=== PATIENT | female | born 1955 | race Caucasian/White ===

== ENCOUNTER 2017-07-10 14:38 | Inpatient (IN) ==
[2017-07-10] MEDS ORDERED: LEVOFLOXACIN INJ 500 MG in PREMIX 1 EACH IV STA (14:51)
[2017-07-10] MEDS ORDERED: methylPREDNISolone SOD SUC 125 MG/2 ML VIAL IV STA (14:51)
[2017-07-10] MEDS ORDERED: methylPREDNISolone SOD SUC 125 MG/2 ML VIAL ONE (14:59)
[2017-07-10] MEDS: ALBUTEROL 2.5 MG/3 ML NEB RESP TX SCH ×2 (15:15→15:16)
[2017-07-10 15:43] LABS: ABG HCO3 32.8 MMOL/L (20-26); ABG PCO2 45.8 MM HG (35-48); ABG PH 7.473 (7.35-7.45); ABG TCO2 34.2 MMOL/L (23-27)
[2017-07-10 15:46] LABS: ABG PO2 40.3 MM HG (80-95)
[2017-07-10 15:49] LABS: Basophils % 0.2 % (0.0-0.8); Immature Granulocytes % 0.5 %; Immature Granulocytes Absolute 0.07 #; Lymphocytes # 1.6 10*3/uL (1.4-4.0); Lymphocytes % 12.1 % (21.3-54.2); Mean Corpuscular HGB Conc 35.7 GM/DL (32-36); Mean Corpuscular Hemoglobin 31 PG (27-34); Mean Corpuscular Volume 85.7 FL (87-102); Mean Platelet Volume 9.6 FL (9.6-12.0); Monocytes # 1.6 10*3/uL (0.11-0.8); Monocytes % 11.6 % (1.7-12.7); Neutrophils # 10.1 10*3/uL (1.4-7.4); Neutrophils % 75.6 % (38.7-73.9); Platelet Count 341 T/CUMM (130-400); Red Cell Distribution Width 12.7 % (9.3-17.3); White Blood Count 13.3 T/CUMM (4-12)
[2017-07-10 16:07] LABS: Bilirubin,Total 0.6 MG/DL (0.2-1.0); Calcium 8.8 MG/DL (8.5-10.1); Osmolality,Calculated 251.4 MOS/KG (273-304); Potassium 3.4 MMOL/L (3.5-5.1)
[2017-07-10 16:09] LABS: INR 0.9; PT Patient Result 9.6 SECS; Partial Thromboplastin Time 29.4 SECS (0-40)
[2017-07-10] MEDS ORDERED: PROPOFOL 1,000 MG/100 ML BOTTLE IV ONE (16:10)
[2017-07-10] MEDS ORDERED: ETOMIDATE 20 MG/10 ML VIAL IV ONE ×2 (16:14→17:09)
[2017-07-10] MEDS: PROPOFOL 1,000 MG/100 ML BOTTLE IV SCH (16:20)
[2017-07-10 16:35] LABS: ABG Base Excess 7.2 MMOL/L (-2.5-2.5); ABG HCO3 31.7 MMOL/L (20-26); ABG Oxygen Saturation 99.5 % (95-100); ABG PH 7.475 (7.35-7.45); ABG PO2 453.4 MM HG (80-95); Allen Test Positive; Pt O2 Delivery Device Ventilator
[2017-07-10] MEDS ORDERED: LEVOFLOXACIN INJ 500 MG in PREMIX 1 EACH IV SCH (17:00)
[2017-07-10] MEDS ORDERED: VECURONIUM 10 MG VIAL IV ONE ×2 (17:09→17:38)
[2017-07-10] MEDS ORDERED: LEVOFLOXACIN INJ 100 ML IV ONE (17:11)
[2017-07-10 18:01] LABS: Apearance,Urine Slightly Hazy (Clear); Bilirubin,Urine Negative (Negative); Blood, Urine Small mg/dL (Negative); Glucose,Urine (UA) Negative (Negative); Ketones,Urine 5 mg/dL (Negative); Mucus,Urine Occasional /LPF (Occasional); Nitrite,Urine Negative (Negative); Protein,Urine 30 MG/DL; RBC,Urine 2 /HPF (0-4); Squamous Epithelial Cell,Urine Occasional /HPF (0-10); Urine Color Yellow (Yellow); Urine Urobilinogen < 2.0 EU/DL (0.2-1.0)
[2017-07-10] MEDS: SODIUM CHLORIDE 0.9% 1,000 ML IV SCH (18:07)
[2017-07-10] MEDS: ENOXAPARIN 40 MG/0.4 ML SYRINGE SUBCUT SCH (18:07)
[2017-07-10] MEDS: methylPREDNISolone SOD SUC 125 MG/2 ML VIAL IV SCH ×2 (18:08→22:41)
[2017-07-10 18:10] LABS: WBC,Urine 4 /HPF (0-6)
[2017-07-10 18:24] LABS: ABG Base Excess 6.2 MMOL/L (-2.5-2.5); ABG HCO3 31.9 MMOL/L (20-26); ABG Oxygen Saturation 99.4 % (95-100); ABG PCO2 50.2 MM HG (35-48); ABG PH 7.421 (7.35-7.45); ABG TCO2 33.4 MMOL/L (23-27); Allen Test Positive; Pt O2 Delivery Device Ventilator
[2017-07-10] MEDS ORDERED: MAGNESIUM SULF RIDER 4 GM in PREMIX 1 EACH IV PRN (18:27)
[2017-07-10] MEDS ORDERED: MAGNESIUM SULF RIDER 2 GM in PREMIX 1 EACH IV PRN (18:27)
[2017-07-10] MEDS: ALBUTEROL/IPRATROPIUM 3 ML NEB RESP TX SCH (20:23)
[2017-07-10] MEDS: PIPERACILLIN/TAZOBACTAM 3,375 MG in SODIUM CHLORIDE 0.9% 100 ML IV SCH (20:54)
[2017-07-10] MEDS ORDERED: PHENYLEPHRINE DRIP 40 MG/250 ML PREMIX IV ONE (22:14)
[2017-07-10] MEDS: PHENYLEPHRINE DRIP 40 MG/250 ML PREMIX IV SCH (22:23)
[2017-07-10] MEDS: POTASSIUM CHLORIDE RIDER 10 MEQ in PREMIX 1 EACH IV PRN ×2 (22:41→23:41)
[2017-07-11] MEDS: POTASSIUM CHLORIDE RIDER 10 MEQ in PREMIX 1 EACH IV PRN ×3 (00:42→11:20)
[2017-07-11] MEDS: ALBUTEROL/IPRATROPIUM 3 ML NEB RESP TX SCH ×4 (01:50→19:46)
[2017-07-11] MEDS: PROPOFOL 1,000 MG/100 ML BOTTLE IV SCH ×8 (01:56→22:46)
[2017-07-11 03:06] LABS: ABG Base Excess 4.2 MMOL/L (-2.5-2.5); ABG HCO3 29.4 MMOL/L (20-26); ABG Oxygen Saturation 98.8 % (95-100); ABG PCO2 46.4 MM HG (35-48); ABG PO2 150.3 MM HG (80-95); ABG TCO2 30.8 MMOL/L (23-27); Allen Test Positive; Pt O2 Delivery Device Ventilator
[2017-07-11] MEDS: PIPERACILLIN/TAZOBACTAM 3,375 MG in SODIUM CHLORIDE 0.9% 100 ML IV SCH ×3 (04:55→20:37)
[2017-07-11 05:24] LABS: Basophils % 0.1 % (0.0-0.8); Hematocrit 36.6 VOL% (35.7-47.0); Hemoglobin 12.8 GM/DL (12.0-16.0); Immature Granulocytes % 0.6 %; Immature Granulocytes Absolute 0.05 #; Lymphocytes # 0.9 10*3/uL (1.4-4.0); Lymphocytes % 10.5 % (21.3-54.2); Mean Corpuscular Hemoglobin 30 PG (27-34); Mean Corpuscular Volume 86.3 FL (87-102); Mean Platelet Volume 10.2 FL (9.6-12.0); Monocytes # 0.2 10*3/uL (0.11-0.8); Monocytes % 2.8 % (1.7-12.7); Neutrophils # 7.3 10*3/uL (1.4-7.4); Platelet Count 344 T/CUMM (130-400); Red Blood Count 4.24 MC/CUMM (3.8-5.5); Red Cell Distribution Width 12.8 % (9.3-17.3); White Blood Count 8.5 T/CUMM (4-12)
[2017-07-11 05:55] LABS: Albumin 2.3 G/DL (3.4-5.0); Bilirubin,Total 0.5 MG/DL (0.2-1.0); Calcium 8.3 MG/DL (8.5-10.1); Osmolality,Calculated 257.1 MOS/KG (273-304); Potassium 3.6 MMOL/L (3.5-5.1); Total Protein 5.3 G/DL (6.4-8.3)
[2017-07-11] MEDS: SODIUM CHLORIDE 0.9% 1,000 ML IV SCH ×3 (05:58→20:33)
[2017-07-11] MEDS: methylPREDNISolone SOD SUC 125 MG/2 ML VIAL IV SCH ×4 (05:58→22:48)
[2017-07-11] MEDS: LEVOTHYROXINE 100 MCG VIAL IV SCH (05:59)
[2017-07-11 06:01] LABS: Magnesium 2.1 MG/DL (1.8-2.4); Risk Ratio 2.54; Thyroid Stimulating Hormone 0.176 uIU/ml (0.358-3.74); VLDL CHOLESTEROL 42.4 MG/DL
[2017-07-11] MEDS ORDERED: AMINOPHYLLINE 250 MG in SODIUM CHLORIDE 0.9% 100 ML IV ONE (08:00)
[2017-07-11] MEDS: AMINOPHYLLINE 500 MG in SODIUM CHLORIDE 0.9% 480 ML IV SCH ×2 (08:08→22:45)
[2017-07-11 08:12] LABS: Band Neutrophils 1 % (0-10); Lymphocytes 5 % (20-55); Microcytosis Slight; Platelet Estimate Normal; Segmented Neutrophils 89 % (50-85); Total Cells Counted 100
[2017-07-11 08:16] LABS: ABG Base Excess 4.4 MMOL/L (-2.5-2.5); ABG HCO3 29.1 MMOL/L (20-26); ABG Oxygen Saturation 95.7 % (95-100); ABG PCO2 44.1 MM HG (35-48); ABG PH 7.438 (7.35-7.45); ABG PO2 73.6 MM HG (80-95); ABG TCO2 30.5 MMOL/L (23-27)
[2017-07-11] MEDS ORDERED: SODIUM CHLORIDE 0.9% 1,000 ML IV ONE (08:33)
[2017-07-11] MEDS ORDERED: DEXTROSE 50% 25 GM/50 ML VIAL IV PRN (14:17)
[2017-07-11] MEDS ORDERED: GLUCAGON 1 MG VIAL IM PRN (14:17)
[2017-07-11] MEDS: LEVOFLOXACIN INJ 500 MG in PREMIX 1 EACH IV SCH (16:22)
[2017-07-11] MEDS: ENOXAPARIN 40 MG/0.4 ML SYRINGE SUBCUT SCH (16:22)
[2017-07-11] MEDS: INSULIN REGULAR 100 UNIT/ML SUBCUT SCH (17:28)
[2017-07-11] MEDS: PHENYLEPHRINE DRIP 40 MG/250 ML PREMIX IV SCH ×2 (20:32→22:46)
[2017-07-12] MEDS: INSULIN REGULAR 100 UNIT/ML SUBCUT SCH ×4 (00:56→18:08)
[2017-07-12] MEDS: PROPOFOL 1,000 MG/100 ML BOTTLE IV SCH ×3 (00:57→06:05)
[2017-07-12] MEDS: ALBUTEROL/IPRATROPIUM 3 ML NEB RESP TX SCH ×4 (01:31→19:52)
[2017-07-12 02:46] LABS: Allen Test Positive; Pt O2 Delivery Device Ventilator
[2017-07-12 02:47] LABS: ABG Base Excess 3.8 MMOL/L (-2.5-2.5); ABG HCO3 28.6 MMOL/L (20-26); ABG Oxygen Saturation 95.6 % (95-100); ABG PCO2 43.9 MM HG (35-48); ABG PH 7.432 (7.35-7.45); ABG PO2 74.8 MM HG (80-95)
[2017-07-12] MEDS: PIPERACILLIN/TAZOBACTAM 3,375 MG in SODIUM CHLORIDE 0.9% 100 ML IV SCH ×3 (03:45→22:04)
[2017-07-12] MEDS: SODIUM CHLORIDE 0.9% 1,000 ML IV SCH ×2 (03:46→13:57)
[2017-07-12 04:51] LABS: Magnesium 2.2 MG/DL (1.8-2.4); Phosphorous 1.6 MG/DL (2.5-4.9); Prealbumin 12.5 MG/DL (20-40)
[2017-07-12] MEDS: LEVOTHYROXINE 100 MCG VIAL IV SCH (05:47)
[2017-07-12] MEDS: methylPREDNISolone SOD SUC 125 MG/2 ML VIAL IV SCH ×3 (06:05→22:04)
[2017-07-12 07:06] LABS: Calcium 7.9 MG/DL (8.5-10.1); Osmolality,Calculated 268.4 MOS/KG (273-304); Potassium 3.4 MMOL/L (3.5-5.1)
[2017-07-12] MEDS: POTASSIUM CHLORIDE RIDER 10 MEQ in PREMIX 1 EACH IV PRN ×3 (07:46→09:53)
[2017-07-12] MEDS: DEXMEDETOMIDINE 200 MCG in SODIUM CHLORIDE 0.9% 48 ML IV SCH ×2 (08:21→10:58)
[2017-07-12] MEDS ORDERED: INFLUENZA VIRUS VACCINE 0.5 ML SYRINGE IM ONE (12:19)
[2017-07-12 12:39] LABS: Allen Test Positive
[2017-07-12 12:40] LABS: ABG HCO3 27.7 MMOL/L (20-26); ABG Oxygen Saturation 91.3 % (95-100); ABG PCO2 34.9 MM HG (35-48); ABG PH 7.518 (7.35-7.45); ABG PO2 49.7 MM HG (80-95); ABG TCO2 28.8 MMOL/L (23-27)
[2017-07-12] MEDS: AMINOPHYLLINE 500 MG in SODIUM CHLORIDE 0.9% 480 ML IV SCH (13:50)
[2017-07-12] MEDS: LEVOFLOXACIN INJ 500 MG in PREMIX 1 EACH IV SCH (16:48)
[2017-07-12] MEDS: ENOXAPARIN 40 MG/0.4 ML SYRINGE SUBCUT SCH (16:48)
[2017-07-12] MEDS: ONDANSETRON 4 MG/2 ML VIAL IV PRN ×2 (17:17→22:30)
[2017-07-12] MEDS: MORPHINE 2 MG/1 ML SYRINGE IV PRN (23:59)
[2017-07-13] MEDS: SODIUM CHLORIDE 0.9% 1,000 ML IV SCH (00:02)
[2017-07-13] MEDS: ALBUTEROL/IPRATROPIUM 3 ML NEB RESP TX SCH ×5 (00:43→20:35)
[2017-07-13] MEDS: AMINOPHYLLINE 500 MG in SODIUM CHLORIDE 0.9% 480 ML IV SCH ×2 (02:44→16:26)
[2017-07-13] MEDS: MORPHINE 2 MG/1 ML SYRINGE IV PRN ×3 (02:44→22:22)
[2017-07-13] MEDS: ONDANSETRON 4 MG/2 ML VIAL IV PRN ×3 (02:46→22:22)
[2017-07-13] MEDS: PIPERACILLIN/TAZOBACTAM 3,375 MG in SODIUM CHLORIDE 0.9% 100 ML IV SCH ×3 (04:22→22:25)
[2017-07-13 04:32] LABS: ABG Base Excess 5.9 MMOL/L (-2.5-2.5); ABG HCO3 28.8 MMOL/L (20-26); ABG PCO2 36.1 MM HG (35-48); ABG PO2 51.3 MM HG (80-95); ABG TCO2 29.9 MMOL/L (23-27)
[2017-07-13 06:15] LABS: Basophils % 0.2 % (0.0-0.8); Hemoglobin 13.1 GM/DL (12.0-16.0); Immature Granulocytes % 1.7 %; Immature Granulocytes Absolute 0.21 #; Lymphocytes # 1.2 10*3/uL (1.4-4.0); Lymphocytes % 9.8 % (21.3-54.2); Mean Corpuscular HGB Conc 34.5 GM/DL (32-36); Mean Corpuscular Hemoglobin 30 PG (27-34); Mean Platelet Volume 9.4 FL (9.6-12.0); Monocytes # 1.1 10*3/uL (0.11-0.8); Monocytes % 8.6 % (1.7-12.7); Neutrophils # 9.9 10*3/uL (1.4-7.4); Neutrophils % 79.7 % (38.7-73.9); Platelet Count 417 T/CUMM (130-400); Red Blood Count 4.32 MC/CUMM (3.8-5.5); Red Cell Distribution Width 13.2 % (9.3-17.3); White Blood Count 12.4 T/CUMM (4-12)
[2017-07-13] MEDS: LEVOTHYROXINE 100 MCG VIAL IV SCH (06:39)
[2017-07-13] MEDS: methylPREDNISolone SOD SUC 125 MG/2 ML VIAL IV SCH ×3 (06:39→22:22)
[2017-07-13] MEDS ORDERED: FUROSEMIDE 20 MG/2 ML VIAL IV ONE (06:46)
[2017-07-13 06:58] LABS: Calcium 7.9 MG/DL (8.5-10.1); Osmolality,Calculated 273.8 MOS/KG (273-304); Potassium 3.4 MMOL/L (3.5-5.1)
[2017-07-13] MEDS: POTASSIUM CHLORIDE RIDER 10 MEQ in PREMIX 1 EACH IV PRN ×3 (07:29→11:51)
[2017-07-13 07:35] LABS: Giant Platelets Few; Hypochromasia 1+; Microcytosis Slight; Platelet Estimate Adequate
[2017-07-13] MEDS: CARVEDILOL 12.5 MG TABLET PO SCH ×2 (09:34→22:23)
[2017-07-13] MEDS: DULoxetine 20 MG CAPSULE PO SCH (09:34)
[2017-07-13] MEDS: ALPRAZolam 0.5 MG TABLET PO SCH (09:34)
[2017-07-13] MEDS: INSULIN REGULAR 100 UNIT/ML SUBCUT SCH ×2 (17:28→21:52)
[2017-07-13] MEDS: ENOXAPARIN 40 MG/0.4 ML SYRINGE SUBCUT SCH (17:31)
[2017-07-13] MEDS: LEVOFLOXACIN INJ 500 MG in PREMIX 1 EACH IV SCH (17:32)
[2017-07-13] MEDS ORDERED: ALPRAZolam 0.5 MG TABLET PO ONE (21:12)
[2017-07-13] MEDS: LACTOBACILLUS ACIDOPHILUS/BULGARICUS CHEW TABLET PO SCH (22:21)
[2017-07-13] MEDS: ZALEPLON 5 MG CAPSULE PO PRN (22:23)
[2017-07-14] MEDS: ALBUTEROL/IPRATROPIUM 3 ML NEB RESP TX SCH ×6 (00:56→19:41)
[2017-07-14 04:07] LABS: Basophils # 0.1 10*3/uL (0.0-0.2); Basophils % 0.5 % (0.0-0.8); Eosinophils % 0.2 % (0.00-10.9); Hematocrit 40.4 VOL% (35.7-47.0); Hemoglobin 13.7 GM/DL (12.0-16.0); Immature Granulocytes % 3.3 %; Immature Granulocytes Absolute 0.32 #; Lymphocytes # 1.2 10*3/uL (1.4-4.0); Lymphocytes % 11.9 % (21.3-54.2); Mean Corpuscular HGB Conc 33.9 GM/DL (32-36); Mean Corpuscular Hemoglobin 30 PG (27-34); Mean Corpuscular Volume 87.8 FL (87-102); Mean Platelet Volume 9.2 FL (9.6-12.0); Monocytes # 0.7 10*3/uL (0.11-0.8); Monocytes % 6.9 % (1.7-12.7); Neutrophils # 7.5 10*3/uL (1.4-7.4); Neutrophils % 77.2 % (38.7-73.9); Platelet Count 438 T/CUMM (130-400); Red Cell Distribution Width 13.2 % (9.3-17.3); White Blood Count 9.7 T/CUMM (4-12)
[2017-07-14 04:22] LABS: Total Cells Counted 0
[2017-07-14] MEDS: PIPERACILLIN/TAZOBACTAM 3,375 MG in SODIUM CHLORIDE 0.9% 100 ML IV SCH ×3 (04:30→20:07)
[2017-07-14 04:32] LABS: Osmolality,Calculated 277.7 MOS/KG (273-304); Potassium 4.3 MMOL/L (3.5-5.1)
[2017-07-14 04:33] LABS: ABG Base Excess 6.3 MMOL/L (-2.5-2.5); ABG HCO3 30.1 MMOL/L (20-26); ABG Oxygen Saturation 93.9 % (95-100); ABG PCO2 39.9 MM HG (35-48); ABG PH 7.495 (7.35-7.45); ABG PO2 63.3 MM HG (80-95); ABG TCO2 31.3 MMOL/L (23-27)
[2017-07-14] MEDS ORDERED: hydrALAZINE 20 MG/1 ML VIAL IV PRN (05:02)
[2017-07-14] MEDS: methylPREDNISolone SOD SUC 125 MG/2 ML VIAL IV SCH ×3 (06:20→22:58)
[2017-07-14] MEDS: LEVOTHYROXINE 75 MCG TABLET PO SCH (06:20)
[2017-07-14] MEDS: AMINOPHYLLINE 500 MG in SODIUM CHLORIDE 0.9% 480 ML IV SCH ×2 (07:18→22:58)
[2017-07-14] MEDS: INSULIN REGULAR 100 UNIT/ML SUBCUT SCH ×4 (07:38→21:00)
[2017-07-14] MEDS: ONDANSETRON 4 MG/2 ML VIAL IV PRN ×2 (08:30→16:18)
[2017-07-14] MEDS: LACTOBACILLUS ACIDOPHILUS/BULGARICUS CHEW TABLET PO SCH ×2 (09:42→20:55)
[2017-07-14] MEDS: DULoxetine 20 MG CAPSULE PO SCH (09:42)
[2017-07-14] MEDS: CARVEDILOL 12.5 MG TABLET PO SCH ×2 (09:42→20:56)
[2017-07-14] MEDS: ALPRAZolam 0.5 MG TABLET PO SCH (09:42)
[2017-07-14] MEDS: ENOXAPARIN 40 MG/0.4 ML SYRINGE SUBCUT SCH (16:15)
[2017-07-14] MEDS: MORPHINE 2 MG/1 ML SYRINGE IV PRN ×2 (16:31→20:27)
[2017-07-14] MEDS: LEVOFLOXACIN INJ 500 MG in PREMIX 1 EACH IV SCH (17:31)
[2017-07-14] MEDS: ZALEPLON 5 MG CAPSULE PO PRN (20:55)
[2017-07-15] MEDS: ALBUTEROL/IPRATROPIUM 3 ML NEB RESP TX SCH ×5 (00:21→19:19)
[2017-07-15] MEDS: PIPERACILLIN/TAZOBACTAM 3,375 MG in SODIUM CHLORIDE 0.9% 100 ML IV SCH (03:40)
[2017-07-15] MEDS: methylPREDNISolone SOD SUC 125 MG/2 ML VIAL IV SCH (06:26)
[2017-07-15] MEDS: LEVOTHYROXINE 75 MCG TABLET PO SCH (06:29)
[2017-07-15 06:57] LABS: Calcium 8.2 MG/DL (8.5-10.1); Osmolality,Calculated 275.8 MOS/KG (273-304); Potassium 3.4 MMOL/L (3.5-5.1)
[2017-07-15 07:13] LABS: Prealbumin 26.6 MG/DL (20-40)
[2017-07-15] MEDS ORDERED: LEVOFLOXACIN 500 MG TABLET PO SCH (09:00)
[2017-07-15] MEDS: INSULIN REGULAR 100 UNIT/ML SUBCUT SCH ×4 (09:47→21:25)
[2017-07-15] MEDS: CARVEDILOL 12.5 MG TABLET PO SCH ×2 (09:48→21:25)
[2017-07-15] MEDS: DULoxetine 20 MG CAPSULE PO SCH (09:48)
[2017-07-15] MEDS: ALPRAZolam 0.5 MG TABLET PO SCH (09:48)
[2017-07-15] MEDS: LACTOBACILLUS ACIDOPHILUS/BULGARICUS CHEW TABLET PO SCH ×2 (10:28→21:25)
[2017-07-15] MEDS ORDERED: POTASSIUM CHLORIDE 20 MEQ TABLET PO ONE (12:59)
[2017-07-15] MEDS ORDERED: INFLUENZA VIRUS VACCINE 0.5 ML SYRINGE IM ONE (14:15)
[2017-07-15] MEDS ORDERED: methylPREDNISolone SOD SUC 40 MG/1 ML VIAL IV SCH (21:00)
[2017-07-15] MEDS: ENOXAPARIN 40 MG/0.4 ML SYRINGE SUBCUT SCH (21:25)
[2017-07-15] MEDS: ONDANSETRON 4 MG/2 ML VIAL IV PRN (21:58)
[2017-07-16] MEDS: ALBUTEROL/IPRATROPIUM 3 ML NEB RESP TX SCH ×3 (01:00→13:27)
[2017-07-16] MEDS: DULoxetine 20 MG CAPSULE PO SCH (08:32)
[2017-07-16] MEDS: LEVOTHYROXINE 75 MCG TABLET PO SCH (08:33)
[2017-07-16] MEDS: CARVEDILOL 12.5 MG TABLET PO SCH (08:33)
[2017-07-16] MEDS: ALPRAZolam 0.5 MG TABLET PO SCH (08:33)
[2017-07-16] MEDS: ONDANSETRON 4 MG/2 ML VIAL IV PRN (08:39)
[2017-07-16] MEDS: LACTOBACILLUS ACIDOPHILUS/BULGARICUS CHEW TABLET PO SCH (08:39)
[2017-07-16] MEDS: INSULIN REGULAR 100 UNIT/ML SUBCUT SCH ×2 (12:19→18:22)
[2017-07-16 17:11] VITALS: BP 140/82
[2017-07-16] MEDS ORDERED: methylPREDNISolone SOD SUC 40 MG/1 ML VIAL IV SCH (21:00)
== END 2017-07-16 17:10 | DRG 133 ==
LOC: N.ED 14:38 → N.EDINP 16:50 → SUATTDRO 16:50 → N.ICU 17:35 → N.2E 07-14 13:34
PROVIDERS: ADMIT Internal Medicine; ATTEND Internal Medicine

== ENCOUNTER 2018-01-01 19:12 | Inpatient (IN) ==
[2018-01-01] MEDS ORDERED: methylPREDNISolone SOD SUC 125 MG/2 ML VIAL IV STA (19:37)
[2018-01-01] MEDS ORDERED: ALBUTEROL/IPRATROPIUM 3 ML NEB RESP TX STA (19:37)
[2018-01-01 19:55] LABS: Basophils # 0.1 10*3/uL (0.0-0.2); Basophils % 0.7 % (0.0-0.8); Eosinophils # 0.1 10*3/uL (0.0-0.87); Eosinophils % 0.6 % (0.00-10.9); Hematocrit 38.5 VOL% (35.7-47.0); Hemoglobin 13.2 GM/DL (12.0-16.0); Immature Granulocytes % 0.5 %; Immature Granulocytes Absolute 0.05 #; Lymphocytes # 2.1 10*3/uL (1.4-4.0); Lymphocytes % 19.2 % (21.3-54.2); Mean Corpuscular HGB Conc 34.3 GM/DL (32-36); Mean Corpuscular Hemoglobin 31 PG (27-34); Mean Corpuscular Volume 88.9 FL (87-102); Mean Platelet Volume 10.1 FL (9.6-12.0); Monocytes # 1.1 10*3/uL (0.11-0.8); Monocytes % 9.9 % (1.7-12.7); Neutrophils # 7.5 10*3/uL (1.4-7.4); Neutrophils % 69.1 % (38.7-73.9); Platelet Count 341 T/CUMM (130-400); Red Blood Count 4.33 MC/CUMM (3.8-5.5); Red Cell Distribution Width 13.2 % (9.3-17.3); White Blood Count 10.9 T/CUMM (4-12)
[2018-01-01 20:15] LABS: Alanine Aminotransferase 23 U/L (13-56); Albumin 3.4 G/DL (3.4-5.0); Alkaline Phosphatase 76 U/L (45-117); Aspartate Amino Transferase 23 U/L (0-37); Bilirubin,Total < 0.39 MG/DL (0.2-1.0); Blood Urea Nitrogen 6 MG/DL (7-18); Calcium 8.7 MG/DL (8.5-10.1); Glucose 94 MG/DL (74-106); Osmolality,Calculated 263.4 MOS/KG (273-304); Potassium 3.6 MMOL/L (3.5-5.1); Sodium 133 MMOL/L (136-145); Total Protein 6.6 G/DL (6.4-8.3)
[2018-01-01 20:16] LABS: Troponin I Only < 0.015 NG/ML (0.00-0.045)
[2018-01-01 20:16] LABS: VBG Base Excess 3.9 MEQ/L (0-4); VBG HCO3 27.9 MEQ/L (24-28); VBG Oxygen Saturation 95.7 %; VBG PCO2 46.1 MMHG (41-51); VBG PH 7.412; VBG PO2 80.1 MMHG (17-40)
[2018-01-01] MEDS ORDERED: ACETAMINOPHEN 325 MG TABLET PO PRN (21:53)
[2018-01-01] MEDS ORDERED: ONDANSETRON 4 MG/2 ML VIAL IV PRN (21:53)
[2018-01-01] MEDS ORDERED: ALBUTEROL/IPRATROPIUM 3 ML NEB RESP TX PRN (21:59)
[2018-01-01] MEDS: SODIUM CHLORIDE 0.9% 1,000 ML IV SCH (22:45)
[2018-01-01] MEDS: LEVOFLOXACIN INJ 500 MG in PREMIX 1 EACH IV SCH (22:45)
[2018-01-02 05:00] LABS: Basophils % 0.3 % (0.0-0.8); Hematocrit 37.7 VOL% (35.7-47.0); Hemoglobin 13.2 GM/DL (12.0-16.0); Immature Granulocytes % 0.6 %; Immature Granulocytes Absolute 0.04 #; Lymphocytes % 13.8 % (21.3-54.2); Mean Corpuscular Hemoglobin 30 PG (27-34); Mean Corpuscular Volume 85.7 FL (87-102); Mean Platelet Volume 10.5 FL (9.6-12.0); Monocytes # 0.1 10*3/uL (0.11-0.8); Neutrophils # 5.8 10*3/uL (1.4-7.4); Neutrophils % 84.3 % (38.7-73.9); Platelet Count 355 T/CUMM (130-400); Red Cell Distribution Width 13.1 % (9.3-17.3); White Blood Count 6.9 T/CUMM (4-12)
[2018-01-02 05:23] LABS: Calcium 8.8 MG/DL (8.5-10.1); Osmolality,Calculated 267.2 MOS/KG (273-304); Potassium 3.7 MMOL/L (3.5-5.1)
[2018-01-02] MEDS: methylPREDNISolone SOD SUC 40 MG/1 ML VIAL IV SCH ×3 (06:03→21:07)
[2018-01-02] MEDS: LEVOTHYROXINE 75 MCG TABLET PO SCH (06:03)
[2018-01-02] MEDS: amLODIPine 10 MG TABLET PO SCH (08:58)
[2018-01-02] MEDS: ASPIRIN EC 81 MG TABLET PO SCH (08:58)
[2018-01-02] MEDS: CARVEDILOL 12.5 MG TABLET PO SCH (08:58)
[2018-01-02] MEDS: ENOXAPARIN 40 MG/0.4 ML SYRINGE SUBCUT SCH (08:59)
[2018-01-02] MEDS: DULoxetine 30 MG CAPSULE PO SCH (08:59)
[2018-01-02] MEDS: LISINOPRIL/HCTZ 10-12.5 MG TABLET PO SCH (08:59)
[2018-01-02] MEDS: ESTRADIOL 2 MG TABLET PO SCH (08:59)
[2018-01-02] MEDS: PANTOPRAZOLE 40 MG TABLET PO SCH (08:59)
[2018-01-02] MEDS: BUDESONIDE/FORMOTEROL 160-4.5 INHALER 6 GM INH SCH ×2 (09:39→21:08)
[2018-01-02] MEDS: ALBUTEROL/IPRATROPIUM 3 ML NEB RESP TX SCH ×5 (10:11→22:33)
[2018-01-02] MEDS: SODIUM CHLORIDE 0.9% 1,000 ML IV SCH (15:38)
[2018-01-02] MEDS: LEVOFLOXACIN INJ 500 MG in PREMIX 1 EACH IV SCH (21:08)
[2018-01-03] MEDS: ALBUTEROL/IPRATROPIUM 3 ML NEB RESP TX SCH ×5 (02:28→23:42)
[2018-01-03] MEDS: methylPREDNISolone SOD SUC 40 MG/1 ML VIAL IV SCH ×2 (06:03→21:53)
[2018-01-03] MEDS: LEVOTHYROXINE 75 MCG TABLET PO SCH (06:04)
[2018-01-03] MEDS: SODIUM CHLORIDE 0.9% 1,000 ML IV SCH (09:30)
[2018-01-03] MEDS: ESTRADIOL 2 MG TABLET PO SCH (09:31)
[2018-01-03] MEDS: LISINOPRIL/HCTZ 10-12.5 MG TABLET PO SCH (09:31)
[2018-01-03] MEDS: DULoxetine 30 MG CAPSULE PO SCH (09:31)
[2018-01-03] MEDS: PANTOPRAZOLE 40 MG TABLET PO SCH (09:31)
[2018-01-03] MEDS: CARVEDILOL 12.5 MG TABLET PO SCH (09:31)
[2018-01-03] MEDS: ASPIRIN EC 81 MG TABLET PO SCH (09:31)
[2018-01-03] MEDS: amLODIPine 10 MG TABLET PO SCH (09:31)
[2018-01-03] MEDS: BUDESONIDE/FORMOTEROL 160-4.5 INHALER 6 GM INH SCH ×2 (09:32→21:44)
[2018-01-03] MEDS: ENOXAPARIN 40 MG/0.4 ML SYRINGE SUBCUT SCH (09:32)
[2018-01-03] MEDS: LEVOFLOXACIN 500 MG TABLET PO SCH (13:26)
[2018-01-03] MEDS ORDERED: methylPREDNISolone SOD SUC 40 MG/1 ML VIAL IV SCH (21:00)
[2018-01-04] MEDS: ALBUTEROL/IPRATROPIUM 3 ML NEB RESP TX SCH ×4 (03:11→19:38)
[2018-01-04 03:56] LABS: Basophils % 0.1 % (0.0-0.8); Hematocrit 33.9 VOL% (35.7-47.0); Hemoglobin 11.7 GM/DL (12.0-16.0); Immature Granulocytes % 0.8 %; Immature Granulocytes Absolute 0.13 #; Lymphocytes # 1.5 10*3/uL (1.4-4.0); Lymphocytes % 9.1 % (21.3-54.2); Mean Corpuscular HGB Conc 34.5 GM/DL (32-36); Mean Corpuscular Hemoglobin 30 PG (27-34); Mean Corpuscular Volume 88.1 FL (87-102); Mean Platelet Volume 10.2 FL (9.6-12.0); Monocytes # 0.5 10*3/uL (0.11-0.8); Monocytes % 3.2 % (1.7-12.7); Neutrophils # 13.9 10*3/uL (1.4-7.4); Neutrophils % 86.8 % (38.7-73.9); Platelet Count 368 T/CUMM (130-400); Red Blood Count 3.85 MC/CUMM (3.8-5.5); Red Cell Distribution Width 13.2 % (9.3-17.3)
[2018-01-04 04:24] LABS: Calcium 8.4 MG/DL (8.5-10.1); Osmolality,Calculated 273.8 MOS/KG (273-304); Potassium 3.4 MMOL/L (3.5-5.1)
[2018-01-04] MEDS: LEVOTHYROXINE 75 MCG TABLET PO SCH (06:05)
[2018-01-04] MEDS: PANTOPRAZOLE 40 MG TABLET PO SCH (09:33)
[2018-01-04] MEDS: LEVOFLOXACIN 500 MG TABLET PO SCH (09:33)
[2018-01-04] MEDS: DULoxetine 30 MG CAPSULE PO SCH (09:34)
[2018-01-04] MEDS: methylPREDNISolone SOD SUC 40 MG/1 ML VIAL IV SCH (09:34)
[2018-01-04] MEDS: BUDESONIDE/FORMOTEROL 160-4.5 INHALER 6 GM INH SCH ×2 (09:34→21:01)
[2018-01-04] MEDS: LISINOPRIL/HCTZ 10-12.5 MG TABLET PO SCH (09:34)
[2018-01-04] MEDS: ESTRADIOL 2 MG TABLET PO SCH (09:34)
[2018-01-04] MEDS: ENOXAPARIN 40 MG/0.4 ML SYRINGE SUBCUT SCH (09:34)
[2018-01-04] MEDS: CARVEDILOL 12.5 MG TABLET PO SCH (09:34)
[2018-01-04] MEDS: ASPIRIN EC 81 MG TABLET PO SCH (09:34)
[2018-01-04] MEDS: amLODIPine 10 MG TABLET PO SCH (09:34)
[2018-01-05] MEDS: ALBUTEROL/IPRATROPIUM 3 ML NEB RESP TX SCH ×2 (01:05→07:22)
[2018-01-05] MEDS: LEVOTHYROXINE 75 MCG TABLET PO SCH (06:20)
[2018-01-05] MEDS ORDERED: methylPREDNISolone SOD SUC 40 MG/1 ML VIAL IV SCH (09:00)
[2018-01-05] MEDS: ASPIRIN EC 81 MG TABLET PO SCH (09:32)
[2018-01-05] MEDS: LISINOPRIL/HCTZ 10-12.5 MG TABLET PO SCH (09:32)
[2018-01-05] MEDS: PANTOPRAZOLE 40 MG TABLET PO SCH (09:32)
[2018-01-05] MEDS: LEVOFLOXACIN 500 MG TABLET PO SCH (09:32)
[2018-01-05] MEDS: DULoxetine 30 MG CAPSULE PO SCH (09:32)
[2018-01-05] MEDS: ESTRADIOL 2 MG TABLET PO SCH (09:32)
[2018-01-05] MEDS: CARVEDILOL 12.5 MG TABLET PO SCH (09:32)
[2018-01-05] MEDS: amLODIPine 10 MG TABLET PO SCH (09:32)
[2018-01-05] MEDS: ENOXAPARIN 40 MG/0.4 ML SYRINGE SUBCUT SCH (09:33)
[2018-01-05] MEDS: BUDESONIDE/FORMOTEROL 160-4.5 INHALER 6 GM INH SCH (09:38)
[2018-01-05 12:10] VITALS: BP 163/93
== END 2018-01-05 14:53 | disposition home or self-care (01) | DRG 140 ==
LOC: EDBD → EDUNIT# → N.ED 19:12 → N.EDINP 21:53 → N.2E 22:38
PROVIDERS: ADMIT Internal Medicine; ATTEND Internal Medicine

== ENCOUNTER 2021-04-28 14:48 | Inpatient (IN) ==
[2021-04-28] MEDS ORDERED: ALBUTEROL 2.5 MG/3 ML NEB RESP TX STA (15:17)
[2021-04-28] MEDS ORDERED: methylPREDNISolone SOD SUC 125 MG/2 ML VIAL IV STA (15:17)
[2021-04-28] MEDS ORDERED: methylPREDNISolone SOD SUC 125 MG/2 ML VIAL ONE (15:18)
[2021-04-28 15:38] LABS: ABG Base Excess 6.3 MMOL/L (-2.5-2.5); ABG PCO2 58.2 MM HG (35-48); ABG PH 7.372 (7.35-7.45); ABG PO2 81.6 MM HG (80-95); ABG TCO2 34.8 MMOL/L (23-27)
[2021-04-28 15:43] LABS: Basophils # 0.1 10*3/uL (0.0-0.2); Basophils % 0.5 % (0.0-0.8); Eosinophils # 0.1 10*3/uL (0.0-0.87); Eosinophils % 1.1 % (0.00-10.9); Hematocrit 33.7 VOL% (35.7-47.0); Hemoglobin 10.9 GM/DL (12.0-16.0); Immature Granulocytes % 0.7 %; Immature Granulocytes Absolute 0.08 #; Lymphocytes # 1.3 10*3/uL (1.4-4.0); Lymphocytes % 11.7 % (21.3-54.2); Mean Corpuscular HGB Conc 32.3 GM/DL (32-36); Mean Corpuscular Volume 92.6 FL (87-102); Mean Platelet Volume 9.5 FL (9.6-12.0); Monocytes % 13.1 % (1.7-12.7); Neutrophils % 72.9 % (38.7-73.9); Platelet Count 352 T/CUMM (130-400); Red Blood Count 3.64 MC/CUMM (3.8-5.5); Red Cell Distribution Width 13.3 % (9.3-17.3)
[2021-04-28 16:02] LABS: Band Neutrophils 7 % (0-10); Eosinophils 1 % (0-10); Lymphocytes 15 % (20-55); Segmented Neutrophils 65 % (50-85); Total Cells Counted 100
[2021-04-28 16:03] LABS: Hypochromasia 1+; Platelet Estimate Adequate; Polychromasia Few
[2021-04-28 16:07] LABS: Albumin 3.1 G/DL (3.4-5.0); Bilirubin,Total 0.6 MG/DL (0.20-1.00); Calcium 9.1 MG/DL (8.5-10.1); Osmolality,Calculated 272.8 MOS/KG (273-304); Potassium 3.4 MMOL/L (3.5-5.1); Total Protein 6.6 G/DL (6.4-8.2)
[2021-04-28] MEDS ORDERED: LEVOFLOXACIN INJ 500 MG/100 ML PREMIX IV STA (16:28)
[2021-04-28] MEDS: ALBUTEROL/IPRATROPIUM 3 ML NEB RESP TX SCH ×2 (20:41→23:48)
[2021-04-28] MEDS: ALBUTEROL 2.5 MG/3 ML NEB RESP TX SCH ×3 (20:45→23:47)
[2021-04-28] MEDS: carvediloL 6.25 MG TABLET PO SCH (21:18)
[2021-04-28] MEDS: guaiFENesin/DM ER 600-30 MG TABLET PO SCH (21:18)
[2021-04-28] MEDS: ROSUVASTATIN 20 MG TABLET PO SCH (21:18)
[2021-04-28] MEDS: GABAPENTIN 300 MG CAPSULE PO SCH (21:19)
[2021-04-29] MEDS: ALBUTEROL 2.5 MG/3 ML NEB RESP TX SCH ×3 (00:21→04:00)
[2021-04-29] MEDS: ALBUTEROL/IPRATROPIUM 3 ML NEB RESP TX SCH ×6 (03:56→23:15)
[2021-04-29 05:36] LABS: Basophils % 0.2 % (0.0-0.8); Hematocrit 33.6 VOL% (35.7-47.0); Immature Granulocytes % 1.2 %; Immature Granulocytes Absolute 0.13 #; Lymphocytes # 1.1 10*3/uL (1.4-4.0); Lymphocytes % 9.6 % (21.3-54.2); Mean Corpuscular HGB Conc 32.7 GM/DL (32-36); Mean Corpuscular Volume 92.3 FL (87-102); Mean Platelet Volume 9.7 FL (9.6-12.0); Monocytes % 3.8 % (1.7-12.7); NRBC # 0.02 10*3/uL; Neutrophils % 85.2 % (38.7-73.9); Platelet Count 373 T/CUMM (130-400); Red Blood Count 3.64 MC/CUMM (3.8-5.5); Red Cell Distribution Width 13.2 % (9.3-17.3)
[2021-04-29] MEDS: LEVOTHYROXINE 75 MCG TABLET PO SCH (05:43)
[2021-04-29 05:54] LABS: Calcium 9.6 MG/DL (8.5-10.1); Osmolality,Calculated 267.4 MOS/KG (273-304); Potassium 3.8 MMOL/L (3.5-5.1)
[2021-04-29 06:33] LABS: Band Neutrophils 3 % (0-10); Hypochromasia Slight; Lymphocytes 10 % (20-55); Segmented Neutrophils 83 % (50-85); Total Cells Counted 100
[2021-04-29 06:34] LABS: Microcytosis 1+; Ovalocytes Slight; Platelet Estimate Normal
[2021-04-29] MEDS: LOSARTAN 50 MG TABLET PO SCH (09:08)
[2021-04-29] MEDS: PANTOPRAZOLE 40 MG TABLET PO SCH (09:08)
[2021-04-29] MEDS: ASPIRIN CHEW 81 MG TABLET PO SCH (09:08)
[2021-04-29] MEDS: carvediloL 6.25 MG TABLET PO SCH ×2 (09:08→21:13)
[2021-04-29] MEDS: GABAPENTIN 300 MG CAPSULE PO SCH ×3 (09:08→21:14)
[2021-04-29] MEDS: amLODIPine 10 MG TABLET PO SCH (09:08)
[2021-04-29] MEDS: FUROSEMIDE 20 MG TABLET PO SCH (09:08)
[2021-04-29] MEDS: buPROPion 75 MG TABLET PO SCH (09:08)
[2021-04-29] MEDS: guaiFENesin/DM ER 600-30 MG TABLET PO SCH ×2 (09:08→21:13)
[2021-04-29] MEDS: LEVOFLOXACIN INJ 750 MG/150 ML PREMIX IV SCH (09:09)
[2021-04-29] MEDS: methylPREDNISolone SOD SUC 40 MG/1 ML VIAL IV SCH ×2 (14:59→21:13)
[2021-04-29] MEDS: ROSUVASTATIN 20 MG TABLET PO SCH (21:14)
[2021-04-30] MEDS: ALBUTEROL/IPRATROPIUM 3 ML NEB RESP TX SCH ×2 (02:36→07:10)
[2021-04-30] MEDS: methylPREDNISolone SOD SUC 40 MG/1 ML VIAL IV SCH ×2 (05:32→15:19)
[2021-04-30] MEDS: LEVOTHYROXINE 75 MCG TABLET PO SCH (05:32)
[2021-04-30 05:57] LABS: Basophils % 0.2 % (0.0-0.8); Hematocrit 31.9 VOL% (35.7-47.0); Hemoglobin 10.4 GM/DL (12.0-16.0); Immature Granulocytes % 2.5 %; Immature Granulocytes Absolute 0.33 #; Lymphocytes # 1.7 10*3/uL (1.4-4.0); Lymphocytes % 12.8 % (21.3-54.2); Mean Corpuscular HGB Conc 32.6 GM/DL (32-36); Mean Corpuscular Volume 90.6 FL (87-102); Mean Platelet Volume 9.2 FL (9.6-12.0); Monocytes % 5.4 % (1.7-12.7); NRBC # 0.03 10*3/uL; Neutrophils % 79.1 % (38.7-73.9); Platelet Count 395 T/CUMM (130-400); Red Blood Count 3.52 MC/CUMM (3.8-5.5); Red Cell Distribution Width 13.4 % (9.3-17.3); White Blood Count 13.1 T/CUMM (4-12)
[2021-04-30 06:26] LABS: Calcium 9.6 MG/DL (8.5-10.1); Potassium 3.5 MMOL/L (3.5-5.1)
[2021-04-30] MEDS: ASPIRIN CHEW 81 MG TABLET PO SCH (08:24)
[2021-04-30] MEDS: guaiFENesin/DM ER 600-30 MG TABLET PO SCH (08:24)
[2021-04-30] MEDS: PANTOPRAZOLE 40 MG TABLET PO SCH (08:25)
[2021-04-30] MEDS: FUROSEMIDE 20 MG TABLET PO SCH (08:25)
[2021-04-30] MEDS: carvediloL 6.25 MG TABLET PO SCH (08:25)
[2021-04-30] MEDS: LOSARTAN 50 MG TABLET PO SCH (08:25)
[2021-04-30] MEDS: amLODIPine 10 MG TABLET PO SCH (08:25)
[2021-04-30] MEDS: GABAPENTIN 300 MG CAPSULE PO SCH (08:25)
[2021-04-30] MEDS: buPROPion 75 MG TABLET PO SCH (08:25)
[2021-04-30] MEDS: LEVOFLOXACIN INJ 750 MG/150 ML PREMIX IV SCH (08:26)
[2021-04-30 12:25] VITALS: BP 150/75
== END 2021-04-30 14:25 | disposition home or self-care (01) | DRG 189 ==
LOC: N.ED 14:48 → N.EDINP 17:07 → SUATTDRO 17:07 → N.3E 17:51
PROVIDERS: ADMIT Nurse Practitioner Family; ATTEND Internal Medicine

== ENCOUNTER 2021-08-16 19:07 | Observation (INO) ==
[2021-08-16] MEDS ORDERED: cefTRIAXone 1,000 MG in SODIUM CHLORIDE 0.9% 100 ML IV STA (19:38)
[2021-08-16] MEDS ORDERED: IPRATROPIUM 500 MCG/2.5 ML NEB RESP TX STA (19:38)
[2021-08-16] MEDS ORDERED: methylPREDNISolone SOD SUC 125 MG/2 ML VIAL IV STA (19:38)
[2021-08-16] MEDS ORDERED: ONDANSETRON 4 MG/2 ML VIAL IV STA (19:38)
[2021-08-16] MEDS ORDERED: ALBUTEROL NEB SOLN 5 MG/ML 20 ML/BOTTLE CONT NEB SCH (20:00)
[2021-08-16 20:17] LABS: ABG HCO3 31.5 MMOL/L (20-26); ABG Oxygen Saturation 95.1 % (95-100); ABG PCO2 49.3 MM HG (35-48); ABG PH 7.424 (7.35-7.45); ABG PO2 73.4 MM HG (80-95); ABG TCO2 33.1 MMOL/L (23-27)
[2021-08-16 20:36] LABS: Basophils % 0.4 % (0.0-0.8); Eosinophils # 0.1 10*3/uL (0.0-0.87); Eosinophils % 0.8 % (0.00-10.9); Hematocrit 39.7 VOL% (35.7-47.0); Hemoglobin 12.6 GM/DL (12.0-16.0); Immature Granulocytes % 0.4 %; Immature Granulocytes Absolute 0.04 #; Lymphocytes # 1.9 10*3/uL (1.4-4.0); Lymphocytes % 17.4 % (21.3-54.2); Mean Corpuscular HGB Conc 31.7 GM/DL (32-36); Mean Corpuscular Volume 92.5 FL (87-102); Mean Platelet Volume 9.5 FL (9.6-12.0); Monocytes % 8.7 % (1.7-12.7); Neutrophils % 72.3 % (38.7-73.9); Platelet Count 367 T/CUMM (130-400); Red Blood Count 4.29 MC/CUMM (3.8-5.5); Red Cell Distribution Width 13.9 % (9.3-17.3); White Blood Count 11.1 T/CUMM (4-12)
[2021-08-16 20:47] LABS: PT Patient Result 10.9 SECS (10.5-12.0)
[2021-08-16 20:58] LABS: Alanine Aminotransferase 39 U/L (13-56); Albumin 3.2 G/DL (3.4-5.0); Alkaline Phosphatase 75 U/L (45-117); Aspartate Amino Transferase 21 U/L (0-37); Bilirubin,Total < 0.39 MG/DL (0.20-1.00); Blood Urea Nitrogen 7 MG/DL (7-18); Calcium 8.8 MG/DL (8.5-10.1); Carbon Dioxide 33 MMOL/L (21-32); Estimated Glom Filtration Rate 112 ML/MIN; Glucose 120 MG/DL (74-106); Potassium 3.2 MMOL/L (3.5-5.1); Sodium 136 MMOL/L (136-145); Total Protein 6.8 G/DL (6.4-8.2)
[2021-08-16] MEDS ORDERED: POTASSIUM CHLORIDE 20 MEQ TABLET PO STA (21:10)
[2021-08-16] MEDS ORDERED: hydrALAZINE 20 MG/1 ML VIAL IV PRN (21:30)
[2021-08-16] MEDS ORDERED: diphenhydrAMINE CAP 25 MG CAPSULE PO PRN (21:30)
[2021-08-16] MEDS ORDERED: DOCUSATE SODIUM 100 MG CAPSULE PO PRN (21:30)
[2021-08-16] MEDS ORDERED: GLUCAGON 1 MG VIAL IM PRN (21:30)
[2021-08-16] MEDS ORDERED: ONDANSETRON 4 MG/2 ML VIAL IV PRN (21:30)
[2021-08-16] MEDS ORDERED: NICOTINE 21 MG/24 HR PATCH TRANSDERM PRN (21:30)
[2021-08-16] MEDS ORDERED: DEXTROSE 50% 25 GM/50 ML SYRINGE IV PRN (21:30)
[2021-08-16] MEDS ORDERED: ACETAMINOPHEN 325 MG TABLET PO PRN (21:30)
[2021-08-16] MEDS ORDERED: guaiFENesin/DM ER 600-30 MG TABLET PO PRN (21:30)
[2021-08-16] MEDS ORDERED: ALBUTEROL 2.5 MG/3 ML NEB RESP TX PRN (21:30)
[2021-08-16] MEDS ORDERED: ZALEPLON 5 MG CAPSULE PO PRN (21:30)
[2021-08-16] MEDS: BUDESONIDE 0.5 MG/2 ML NEB RESP TX SCH (22:21)
[2021-08-16] MEDS: AZITHROMYCIN INJ 500 MG in SODIUM CHLORIDE 0.9% 250 ML IV SCH (22:32)
[2021-08-16] MEDS: ARFORMOTEROL 15 MCG/2 ML NEB RESP TX SCH (22:37)
[2021-08-17] MEDS: ALBUTEROL/IPRATROPIUM 3 ML NEB RESP TX SCH ×4 (00:47→19:30)
[2021-08-17] MEDS: methylPREDNISolone SOD SUC 40 MG/1 ML VIAL IV SCH ×3 (04:45→20:45)
[2021-08-17 05:26] LABS: Basophils % 0.1 % (0.0-0.8); Hematocrit 40.7 VOL% (35.7-47.0); Hemoglobin 12.8 GM/DL (12.0-16.0); Immature Granulocytes % 1.2 %; Lymphocytes % 11.6 % (21.3-54.2); Mean Corpuscular HGB Conc 31.4 GM/DL (32-36); Mean Corpuscular Volume 92.3 FL (87-102); Mean Platelet Volume 9.6 FL (9.6-12.0); Monocytes % 0.8 % (1.7-12.7); Neutrophils % 86.3 % (38.7-73.9); Platelet Count 385 T/CUMM (130-400); Red Blood Count 4.41 MC/CUMM (3.8-5.5); Red Cell Distribution Width 13.8 % (9.3-17.3); White Blood Count 8.6 T/CUMM (4-12)
[2021-08-17 05:37] LABS: Alanine Aminotransferase 37 U/L (13-56); Albumin 3.1 G/DL (3.4-5.0); Alkaline Phosphatase 75 U/L (45-117); Aspartate Amino Transferase 15 U/L (0-37); Bilirubin,Total < 0.39 MG/DL (0.20-1.00); Blood Urea Nitrogen 9 MG/DL (7-18); Calcium 9.5 MG/DL (8.5-10.1); Carbon Dioxide 31 MMOL/L (21-32); Estimated Glom Filtration Rate 95 ML/MIN; Glucose 177 MG/DL (74-106); Potassium 3.9 MMOL/L (3.5-5.1); Sodium 136 MMOL/L (136-145); Total Protein 7.5 G/DL (6.4-8.2)
[2021-08-17 05:47] LABS: Band Neutrophils 1 % (0-10); Hypochromasia 1+; Lymphocytes 10 % (20-55); Ovalocytes Slight; Segmented Neutrophils 86 % (50-85); Total Cells Counted 100
[2021-08-17 05:48] LABS: Microcytosis 1+; Platelet Estimate Normal
[2021-08-17] MEDS ORDERED: hydrOXYzine HCL 25 MG TABLET PO PRN (06:15)
[2021-08-17] MEDS ORDERED: DEXTROSE 50% 25 GM/50 ML VIAL IV PRN (06:17)
[2021-08-17] MEDS ORDERED: GLUCAGON 1 MG VIAL IM PRN (06:17)
[2021-08-17] MEDS: BUDESONIDE 0.5 MG/2 ML NEB RESP TX SCH ×2 (07:05→19:40)
[2021-08-17] MEDS: ARFORMOTEROL 15 MCG/2 ML NEB RESP TX SCH ×2 (07:05→19:50)
[2021-08-17] MEDS: ENOXAPARIN 40 MG/0.4 ML SYRINGE SUBCUT SCH (09:08)
[2021-08-17] MEDS: PANTOPRAZOLE 40 MG TABLET PO SCH (09:12)
[2021-08-17] MEDS: GABAPENTIN 300 MG CAPSULE PO SCH ×3 (09:12→20:44)
[2021-08-17] MEDS: ASPIRIN EC 81 MG TABLET PO SCH (09:12)
[2021-08-17] MEDS: carvediloL 6.25 MG TABLET PO SCH ×2 (09:12→20:44)
[2021-08-17] MEDS: amLODIPine 10 MG TABLET PO SCH (09:12)
[2021-08-17] MEDS: LOSARTAN 50 MG TABLET PO SCH (09:12)
[2021-08-17] MEDS: buPROPion XL 150 MG TABLET PO SCH (09:12)
[2021-08-17] MEDS: ROSUVASTATIN 20 MG TABLET PO SCH (09:12)
[2021-08-17] MEDS: INSULIN LISPRO 100 UNIT/ML SUBCUT SCH ×4 (09:25→20:46)
[2021-08-17] MEDS: PYRIDOXINE 100 MG TABLET PO SCH (12:31)
[2021-08-17] MEDS: NON-FORMULARY MEDICATION (Budesonide-Glycopyr-Formoterol [Breztri Aerosphere] 160-9-4.8 mc INH SCH ×2 (12:45→22:25)
[2021-08-17] MEDS ORDERED: cefTRIAXone 1,000 MG in SODIUM CHLORIDE 0.9% 100 ML IV SCH (21:00)
[2021-08-17] MEDS: AZITHROMYCIN INJ 500 MG in SODIUM CHLORIDE 0.9% 250 ML IV SCH (22:24)
[2021-08-18] MEDS: ALBUTEROL/IPRATROPIUM 3 ML NEB RESP TX SCH ×3 (01:25→12:21)
[2021-08-18] MEDS: methylPREDNISolone SOD SUC 40 MG/1 ML VIAL IV SCH ×2 (04:04→12:06)
[2021-08-18] MEDS ORDERED: LEVOTHYROXINE 75 MCG TABLET PO SCH (06:30)
[2021-08-18] MEDS: BUDESONIDE 0.5 MG/2 ML NEB RESP TX SCH (07:22)
[2021-08-18] MEDS: ARFORMOTEROL 15 MCG/2 ML NEB RESP TX SCH (07:54)
[2021-08-18] MEDS: ROSUVASTATIN 20 MG TABLET PO SCH (09:24)
[2021-08-18] MEDS: buPROPion XL 150 MG TABLET PO SCH (09:24)
[2021-08-18] MEDS: PYRIDOXINE 100 MG TABLET PO SCH (09:24)
[2021-08-18] MEDS: carvediloL 6.25 MG TABLET PO SCH (09:24)
[2021-08-18] MEDS: ASPIRIN EC 81 MG TABLET PO SCH (09:24)
[2021-08-18] MEDS: PANTOPRAZOLE 40 MG TABLET PO SCH (09:24)
[2021-08-18] MEDS: amLODIPine 10 MG TABLET PO SCH (09:24)
[2021-08-18] MEDS: GABAPENTIN 300 MG CAPSULE PO SCH (09:24)
[2021-08-18] MEDS: LOSARTAN 50 MG TABLET PO SCH (09:24)
[2021-08-18] MEDS: ENOXAPARIN 40 MG/0.4 ML SYRINGE SUBCUT SCH (09:26)
[2021-08-18] MEDS: INSULIN LISPRO 100 UNIT/ML SUBCUT SCH ×2 (09:26→11:53)
[2021-08-18] MEDS: NON-FORMULARY MEDICATION (Budesonide-Glycopyr-Formoterol [Breztri Aerosphere] 160-9-4.8 mc INH SCH (09:27)
[2021-08-18 13:11] VITALS: BP 137/68
== END 2021-08-18 15:35 | disposition home or self-care (01) ==
LOC: EDUNIT# → EDBD → N.ED 19:07 → N.EDINP 19:07 → N.TELEN 08-17 04:41
PROVIDERS: ADMIT Internal Medicine; ATTEND Internal Medicine

== ENCOUNTER 2021-12-15 12:45 | Inpatient (IN) ==
[2021-12-15] MEDS ORDERED: cefTRIAXone 1,000 MG in SODIUM CHLORIDE 0.9% 100 ML IV STA (13:20)
[2021-12-15] MEDS ORDERED: methylPREDNISolone SOD SUC 125 MG/2 ML VIAL IV STA (13:20)
[2021-12-15] MEDS ORDERED: ALBUTEROL NEB SOLN 5 MG/ML 20 ML/BOTTLE CONT NEB SCH (13:30)
[2021-12-15 13:35] LABS: Basophils % 0.2 % (0.0-0.8); Hematocrit 42.1 VOL% (35.7-47.0); Hemoglobin 13.4 GM/DL (12.0-16.0); Immature Granulocytes % 0.4 %; Immature Granulocytes Absolute 0.05 #; Lymphocytes # 0.7 10*3/uL (1.4-4.0); Lymphocytes % 5.8 % (21.3-54.2); Mean Corpuscular HGB Conc 31.8 GM/DL (32-36); Mean Corpuscular Volume 91.1 FL (87-102); Mean Platelet Volume 10.1 FL (9.6-12.0); Monocytes # 1.2 10*3/uL (0.11-0.8); Monocytes % 9.2 % (1.7-12.7); Neutrophils % 84.4 % (38.7-73.9); Platelet Count 344 T/CUMM (130-400); Red Blood Count 4.62 MC/CUMM (3.8-5.5); Red Cell Distribution Width 13.4 % (9.3-17.3); White Blood Count 12.6 T/CUMM (4-12)
[2021-12-15 13:48] LABS: Arterial Base Excess iSTAT -2 MMOL/L (-2.5-2.5); Arterial Bicarbonate iSTAT 24.9 MMOL/L (20-26); Arterial O2 Saturation iSTAT 93 % (95-100); Arterial PCO2 iSTAT 50 MM HG (35-48); Arterial PO2 iSTAT 74 MM HG (80-95); Arterial Total CO2 iSTAT 26 MMO/L (23-27); Arterial pH iSTAT 7.305 (7.35-7.45)
[2021-12-15 13:55] LABS: Alanine Aminotransferase 36 U/L (13-56); Albumin 3.4 G/DL (3.4-5.0); Alkaline Phosphatase 69 U/L (45-117); Aspartate Amino Transferase 48 U/L (0-37); Bilirubin,Total < 0.39 MG/DL (0.20-1.00); Blood Urea Nitrogen 12 MG/DL (7-18); Calcium 8.8 MG/DL (8.5-10.1); Carbon Dioxide 26 MMOL/L (21-32); Chloride 100 MMOL/L (98-107); Estimated Glom Filtration Rate 66 ML/MIN; Glucose 109 MG/DL (74-106); Osmolality,Calculated 270.1 MOS/KG (273-304); Potassium 3.9 MMOL/L (3.5-5.1); Sodium 135 MMOL/L (136-145); Total Protein 6.8 G/DL (6.4-8.2)
[2021-12-15] MEDS ORDERED: ALBUTEROL 2.5 MG/3 ML NEB RESP TX PRN (16:15)
[2021-12-15] MEDS ORDERED: DOCUSATE SODIUM 100 MG CAPSULE PO PRN (16:15)
[2021-12-15] MEDS ORDERED: NICOTINE 21 MG/24 HR PATCH TRANSDERM PRN (16:15)
[2021-12-15] MEDS ORDERED: FUROSEMIDE 20 MG TABLET PO PRN (16:31)
[2021-12-15] MEDS ORDERED: CYCLOBENZAPRINE 10 MG TABLET PO PRN (16:31)
[2021-12-15] MEDS: methylPREDNISolone SOD SUC 40 MG/1 ML VIAL IV SCH (16:46)
[2021-12-15] MEDS: ENOXAPARIN 40 MG/0.4 ML SYRINGE SUBCUT SCH (16:46)
[2021-12-15] MEDS: PANTOPRAZOLE 40 MG TABLET PO SCH (16:46)
[2021-12-15] MEDS: BUDESONIDE 0.25 MG/2 ML NEB RESP TX SCH (20:05)
[2021-12-15] MEDS: ALBUTEROL/IPRATROPIUM 3 ML NEB RESP TX SCH (20:05)
[2021-12-15] MEDS: ROSUVASTATIN 20 MG TABLET PO SCH (20:42)
[2021-12-15] MEDS: GABAPENTIN 300 MG CAPSULE PO SCH (20:42)
[2021-12-16] MEDS: ALBUTEROL/IPRATROPIUM 3 ML NEB RESP TX SCH ×4 (00:05→19:20)
[2021-12-16] MEDS: methylPREDNISolone SOD SUC 40 MG/1 ML VIAL IV SCH ×2 (02:24→08:32)
[2021-12-16 04:51] LABS: Basophils % 0.2 % (0.0-0.8); Hemoglobin 12.2 GM/DL (12.0-16.0); Immature Granulocytes % 0.6 %; Immature Granulocytes Absolute 0.07 #; Lymphocytes # 0.6 10*3/uL (1.4-4.0); Mean Corpuscular HGB Conc 32.1 GM/DL (32-36); Mean Corpuscular Volume 90.7 FL (87-102); Mean Platelet Volume 10.1 FL (9.6-12.0); Monocytes # 0.4 10*3/uL (0.11-0.8); Monocytes % 3.3 % (1.7-12.7); Neutrophils % 90.9 % (38.7-73.9); Platelet Count 323 T/CUMM (130-400); Red Blood Count 4.19 MC/CUMM (3.8-5.5); Red Cell Distribution Width 13.3 % (9.3-17.3); White Blood Count 12.6 T/CUMM (4-12)
[2021-12-16 05:13] LABS: Osmolality,Calculated 259.4 MOS/KG (273-304); Potassium 3.9 MMOL/L (3.5-5.1); Thyroid Stimulating Hormone 0.782 uIU/ml (0.358-3.74)
[2021-12-16 05:23] LABS: Lymphocytes 5 % (20-55); Platelet Estimate Normal; Total Cells Counted 100
[2021-12-16] MEDS: PANTOPRAZOLE 40 MG TABLET PO SCH (05:46)
[2021-12-16] MEDS: LEVOTHYROXINE 75 MCG TABLET PO SCH (05:47)
[2021-12-16] MEDS: BUDESONIDE 0.25 MG/2 ML NEB RESP TX SCH ×2 (07:07→19:20)
[2021-12-16] MEDS: amLODIPine 10 MG TABLET PO SCH (08:30)
[2021-12-16] MEDS: GABAPENTIN 300 MG CAPSULE PO SCH ×3 (08:30→21:06)
[2021-12-16] MEDS: buPROPion XL 150 MG TABLET PO SCH (08:31)
[2021-12-16] MEDS: ASPIRIN EC 81 MG TABLET PO SCH (08:33)
[2021-12-16] MEDS ORDERED: LOSARTAN 50 MG TABLET PO SCH (09:00)
[2021-12-16] MEDS: SODIUM CHLORIDE 0.9% 1,000 ML IV SCH ×2 (09:06→12:11)
[2021-12-16] MEDS: cefTRIAXone 1,000 MG in SODIUM CHLORIDE 0.9% 100 ML IV SCH (14:06)
[2021-12-16] MEDS: methylPREDNISolone SOD SUC 125 MG/2 ML VIAL IV SCH ×2 (14:07→21:06)
[2021-12-16] MEDS: ENOXAPARIN 40 MG/0.4 ML SYRINGE SUBCUT SCH (16:07)
[2021-12-16] MEDS: ONDANSETRON 4 MG/2 ML VIAL IV PRN (16:08)
[2021-12-16] MEDS: ROSUVASTATIN 20 MG TABLET PO SCH (21:05)
[2021-12-16] MEDS: MONTELUKAST 10 MG TABLET PO SCH (21:06)
[2021-12-17] MEDS: ALBUTEROL/IPRATROPIUM 3 ML NEB RESP TX SCH ×5 (00:34→19:46)
[2021-12-17] MEDS: methylPREDNISolone SOD SUC 125 MG/2 ML VIAL IV SCH ×4 (02:26→21:05)
[2021-12-17] MEDS: LEVOTHYROXINE 75 MCG TABLET PO SCH (05:37)
[2021-12-17] MEDS: PANTOPRAZOLE 40 MG TABLET PO SCH (05:37)
[2021-12-17] MEDS: BUDESONIDE 0.25 MG/2 ML NEB RESP TX SCH ×2 (08:06→19:46)
[2021-12-17] MEDS: buPROPion XL 150 MG TABLET PO SCH (08:56)
[2021-12-17] MEDS: ASPIRIN EC 81 MG TABLET PO SCH (08:56)
[2021-12-17] MEDS: amLODIPine 10 MG TABLET PO SCH (08:56)
[2021-12-17] MEDS: ONDANSETRON 4 MG/2 ML VIAL IV PRN ×2 (08:56)
[2021-12-17] MEDS: GABAPENTIN 300 MG CAPSULE PO SCH (08:57)
[2021-12-17 09:18] LABS: Basophils % 0.1 % (0.0-0.8); Hematocrit 39.1 VOL% (35.7-47.0); Hemoglobin 12.9 GM/DL (12.0-16.0); Immature Granulocytes % 0.5 %; Immature Granulocytes Absolute 0.07 #; Lymphocytes # 0.9 10*3/uL (1.4-4.0); Lymphocytes % 6.3 % (21.3-54.2); Mean Corpuscular Volume 88.9 FL (87-102); Mean Platelet Volume 9.9 FL (9.6-12.0); Monocytes # 0.8 10*3/uL (0.11-0.8); Monocytes % 5.3 % (1.7-12.7); NRBC # 0.06 10*3/uL; Neutrophils % 87.8 % (38.7-73.9); Platelet Count 392 T/CUMM (130-400); Red Cell Distribution Width 13.1 % (9.3-17.3); White Blood Count 14.9 T/CUMM (4-12)
[2021-12-17 09:43] LABS: Calcium 8.8 MG/DL (8.5-10.1); Osmolality,Calculated 257.1 MOS/KG (273-304); Potassium 4.7 MMOL/L (3.5-5.1)
[2021-12-17] MEDS ORDERED: SODIUM BICARBONATE 50 MEQ/50 ML VIAL IV ONE (10:03)
[2021-12-17 10:16] LABS: Hyaline Casts,Urine 12 /LPF (0-3); Mucus,Urine Occasional /LPF (Occasional); RBC,Urine 4 /HPF (0-4); Squamous Epithelial Cell,Urine Occasional /HPF (0-10)
[2021-12-17 10:17] LABS: Bilirubin,Urine Negative (Negative); Blood, Urine Trace mg/dL (Negative); Glucose,Urine (UA) Negative (Negative); Ketones,Urine Negative (Negative); Nitrite,Urine Negative (Negative); Protein,Urine Trace mg/dL (Negative); Urine Appearance Clear (Clear); Urine Color Yellow (Yellow); Urine Specific Gravity >= 1.030 (1.001-1.035); Urine Urobilinogen 0.2 eU/dL (<2.0)
[2021-12-17] MEDS ORDERED: SODIUM BICARB INJ 50 MEQ in IV BAG 1 EACH IV ONE (10:30)
[2021-12-17 10:37] LABS: Arterial Base Excess iSTAT -8 MMOL/L (-2.5-2.5); Arterial Bicarbonate iSTAT 20.3 MMOL/L (20-26); Arterial O2 Saturation iSTAT 94 % (95-100); Arterial PCO2 iSTAT 50 MM HG (35-48); Arterial PO2 iSTAT 88 MM HG (80-95); Arterial Total CO2 iSTAT 22 MMO/L (23-27); Arterial pH iSTAT 7.221 (7.35-7.45)
[2021-12-17] MEDS ORDERED: RACEPINEPHRINE 0.5 ML NEB RESP TX ONE (11:23)
[2021-12-17] MEDS ORDERED: NALOXONE 0.4 MG/ML VIAL IV PRN (11:23)
[2021-12-17] MEDS ORDERED: methylPREDNISolone SOD SUC 125 MG/2 ML VIAL IV ONE (11:24)
[2021-12-17] MEDS ORDERED: SODIUM BICARB INJ 50 MEQ in DEXTROSE 5% NACL 0.45% 1,000 ML IV SCH (11:30)
[2021-12-17] MEDS: MORPHINE 2 MG/1 ML SYRINGE IV PRN ×2 (12:03→22:34)
[2021-12-17 13:51] LABS: Arterial Base Excess iSTAT -7 MMOL/L (-2.5-2.5); Arterial Bicarbonate iSTAT 21.4 MMOL/L (20-26); Arterial O2 Saturation iSTAT 98 % (95-100); Arterial PCO2 iSTAT 54 MM HG (35-48); Arterial PO2 iSTAT 138 MM HG (80-95); Arterial Total CO2 iSTAT 23 MMO/L (23-27); Arterial pH iSTAT 7.205 (7.35-7.45)
[2021-12-17] MEDS: SODIUM BICARB INJ 100 MEQ in DEXTROSE 5% NACL 0.45% 1,000 ML IV SCH (14:00)
[2021-12-17] MEDS: cefTRIAXone 1,000 MG in SODIUM CHLORIDE 0.9% 100 ML IV SCH (14:00)
[2021-12-17] MEDS: GABAPENTIN 100 MG CAPSULE PO SCH ×2 (15:40→21:08)
[2021-12-17 15:51] LABS: Arterial Base Excess iSTAT -7 MMOL/L (-2.5-2.5); Arterial O2 Saturation iSTAT 93 % (95-100); Arterial PCO2 iSTAT 49 MM HG (35-48); Arterial PO2 iSTAT 79 MM HG (80-95); Arterial Total CO2 iSTAT 23 MMO/L (23-27); Arterial pH iSTAT 7.238 (7.35-7.45)
[2021-12-17 17:00] LABS: Calcium 7.9 MG/DL (8.5-10.1); Osmolality,Calculated 259.1 MOS/KG (273-304)
[2021-12-17] MEDS: ENOXAPARIN 40 MG/0.4 ML SYRINGE SUBCUT SCH (17:50)
[2021-12-17] MEDS: ROSUVASTATIN 20 MG TABLET PO SCH (21:08)
[2021-12-17] MEDS: MONTELUKAST 10 MG TABLET PO SCH (21:09)
[2021-12-17] MEDS: LORazepam 2 MG/1 ML VIAL IV PRN (23:40)
[2021-12-18] MEDS: ALBUTEROL/IPRATROPIUM 3 ML NEB RESP TX SCH ×7 (00:35→23:33)
[2021-12-18] MEDS: methylPREDNISolone SOD SUC 125 MG/2 ML VIAL IV SCH ×4 (03:21→23:29)
[2021-12-18 05:54] LABS: Basophils % 0.1 % (0.0-0.8); Hematocrit 37.9 VOL% (35.7-47.0); Hemoglobin 12.6 GM/DL (12.0-16.0); Immature Granulocytes % 0.7 %; Lymphocytes # 0.8 10*3/uL (1.4-4.0); Lymphocytes % 5.5 % (21.3-54.2); Mean Corpuscular HGB Conc 33.2 GM/DL (32-36); Mean Corpuscular Volume 87.3 FL (87-102); Mean Platelet Volume 10.1 FL (9.6-12.0); Monocytes # 0.8 10*3/uL (0.11-0.8); NRBC # 0.14 10*3/uL; Neutrophils % 88.7 % (38.7-73.9); Platelet Count 399 T/CUMM (130-400); Red Blood Count 4.34 MC/CUMM (3.8-5.5); Red Cell Distribution Width 13.2 % (9.3-17.3); White Blood Count 15.1 T/CUMM (4-12)
[2021-12-18] MEDS: LEVOTHYROXINE 75 MCG TABLET PO SCH (05:54)
[2021-12-18] MEDS: PANTOPRAZOLE 40 MG TABLET PO SCH (05:54)
[2021-12-18 06:16] LABS: Calcium 8.5 MG/DL (8.5-10.1); Osmolality,Calculated 260.3 MOS/KG (273-304); Potassium 4.3 MMOL/L (3.5-5.1)
[2021-12-18 06:17] LABS: Uric Acid 8.8 MG/DL (2.6-6.0)
[2021-12-18] MEDS: SODIUM BICARB INJ 100 MEQ in DEXTROSE 5% NACL 0.45% 1,000 ML IV SCH ×2 (06:33→22:32)
[2021-12-18] MEDS: BUDESONIDE 0.25 MG/2 ML NEB RESP TX SCH ×2 (07:15→19:31)
[2021-12-18 07:46] LABS: Total Protein (Chem) 7.1 G/DL (6.4-8.3)
[2021-12-18] MEDS: LORazepam 2 MG/1 ML VIAL IV PRN (08:58)
[2021-12-18] MEDS: amLODIPine 10 MG TABLET PO SCH (09:06)
[2021-12-18] MEDS: ASPIRIN EC 81 MG TABLET PO SCH (09:06)
[2021-12-18] MEDS: GABAPENTIN 100 MG CAPSULE PO SCH ×2 (09:06→16:45)
[2021-12-18] MEDS: buPROPion XL 150 MG TABLET PO SCH (09:07)
[2021-12-18 09:10] LABS: Albumin (SPE) 4.3 G/DL (3.2-5.3); Albumin (SPE) Rel % 60.1 %; Alpha 1 (SPE) 0.3 G/DL (0.1-0.4); Alpha 1 (SPE) Rel % 3.7 %; Alpha 2 (SPE) 1.1 G/DL (0.4-1.0); Alpha 2 (SPE) Rel % 15.4 %; Beta (SPE) 0.9 G/DL (0.5-1.1); Beta (SPE) Rel % 12.5 %; Gamma (SPE) 0.6 G/DL (0.7-1.7); Gamma (SPE) Rel % 8.3 %
[2021-12-18] MEDS ORDERED: SODIUM CHLORIDE 0.9% 1,000 ML IV SCH (09:30)
[2021-12-18] MEDS: THEOPHYLLINE ER (24 HR) 400 MG CAPSULE PO SCH (11:07)
[2021-12-18] MEDS ORDERED: FUROSEMIDE 100 MG/10 ML VIAL IV ONE (11:40)
[2021-12-18] MEDS: cefTRIAXone 1,000 MG in SODIUM CHLORIDE 0.9% 100 ML IV SCH (14:00)
[2021-12-18] MEDS: ENOXAPARIN 40 MG/0.4 ML SYRINGE SUBCUT SCH (16:45)
[2021-12-18 21:49] LABS: Arterial Base Excess iSTAT -4 MMOL/L (-2.5-2.5); Arterial Bicarbonate iSTAT 23.1 MMOL/L (20-26); Arterial O2 Saturation iSTAT 93 % (95-100); Arterial PCO2 iSTAT 47 MM HG (35-48); Arterial PO2 iSTAT 77 MM HG (80-95); Arterial Total CO2 iSTAT 25 MMO/L (23-27); Arterial pH iSTAT 7.296 (7.35-7.45)
[2021-12-18 22:34] LABS: Calcium 8.1 MG/DL (8.5-10.1); Osmolality,Calculated 268.5 MOS/KG (273-304)
[2021-12-19] MEDS: LORazepam 2 MG/1 ML VIAL IV PRN (00:25)
[2021-12-19] MEDS: ALBUTEROL/IPRATROPIUM 3 ML NEB RESP TX SCH ×6 (03:35→23:35)
[2021-12-19] MEDS: methylPREDNISolone SOD SUC 125 MG/2 ML VIAL IV SCH ×4 (03:41→21:29)
[2021-12-19 04:11] LABS: Arterial Base Excess iSTAT -2 MMOL/L (-2.5-2.5); Arterial Bicarbonate iSTAT 23.7 MMOL/L (20-26); Arterial O2 Saturation iSTAT 80 % (95-100); Arterial PCO2 iSTAT 42 MM HG (35-48); Arterial PO2 iSTAT 47 MM HG (80-95); Arterial Total CO2 iSTAT 25 MMO/L (23-27); Arterial pH iSTAT 7.354 (7.35-7.45)
[2021-12-19 04:28] LABS: Arterial Base Excess iSTAT -2 MMOL/L (-2.5-2.5); Arterial Bicarbonate iSTAT 24.1 MMOL/L (20-26); Arterial O2 Saturation iSTAT 97 % (95-100); Arterial PCO2 iSTAT 47 MM HG (35-48); Arterial PO2 iSTAT 103 MM HG (80-95); Arterial Total CO2 iSTAT 26 MMO/L (23-27); Arterial pH iSTAT 7.314 (7.35-7.45)
[2021-12-19 04:36] LABS: Basophils % 0.1 % (0.0-0.8); Hematocrit 34.4 VOL% (35.7-47.0); Hemoglobin 11.8 GM/DL (12.0-16.0); Immature Granulocytes % 0.7 %; Immature Granulocytes Absolute 0.09 #; Lymphocytes # 0.5 10*3/uL (1.4-4.0); Lymphocytes % 3.6 % (21.3-54.2); Mean Corpuscular HGB Conc 34.3 GM/DL (32-36); Mean Platelet Volume 9.8 FL (9.6-12.0); Monocytes # 1.2 10*3/uL (0.11-0.8); Monocytes % 8.9 % (1.7-12.7); NRBC # 0.14 10*3/uL; Neutrophils % 86.7 % (38.7-73.9); Platelet Count 385 T/CUMM (130-400); Red Cell Distribution Width 13.2 % (9.3-17.3); White Blood Count 13.5 T/CUMM (4-12)
[2021-12-19 04:57] LABS: Calcium 8.7 MG/DL (8.5-10.1); Osmolality,Calculated 270.6 MOS/KG (273-304); Potassium 3.9 MMOL/L (3.5-5.1)
[2021-12-19 05:13] LABS: Elliptocytes 1+; Platelet Estimate Adequate; Polychromasia 1+
[2021-12-19] MEDS: PANTOPRAZOLE 40 MG VIAL IV SCH ×2 (06:14→10:03)
[2021-12-19] MEDS: BUDESONIDE 0.25 MG/2 ML NEB RESP TX SCH ×2 (07:39→20:20)
[2021-12-19 09:38] LABS: Hepatitis B Core IgM Quant 0.08 Index; Hepatitis B Surface Ag Quant < 0.10 Index; Hepatitis B Surface Ag Result Non-Reactive (NonReactive); Hepatitis C Virus Ab Quant 0.14 Index; Hepatitis C Virus Ab Result Non-Reactive (NonReactive)
[2021-12-19] MEDS: cefTRIAXone 1,000 MG in SODIUM CHLORIDE 0.9% 100 ML IV SCH (14:32)
[2021-12-19] MEDS: SODIUM BICARB INJ 100 MEQ in DEXTROSE 5% NACL 0.45% 1,000 ML IV SCH (14:36)
[2021-12-19] MEDS ORDERED: HEPARIN 10,000 UNIT/10 ML VIAL IV ONE (16:15)
[2021-12-19] MEDS ORDERED: OLANZapine 5 MG TABLET PO ONE (17:30)
[2021-12-19] MEDS ORDERED: ROCURONIUM 100 MG/10 ML VIAL IV ONE ×2 (17:55→18:06)
[2021-12-19] MEDS ORDERED: ETOMIDATE 20 MG/10 ML VIAL IV ONE ×2 (17:56→18:06)
[2021-12-19] MEDS: ASPIRIN EC 81 MG TABLET PO SCH (18:24)
[2021-12-19] MEDS: amLODIPine 10 MG TABLET PO SCH (18:25)
[2021-12-19] MEDS: buPROPion XL 150 MG TABLET PO SCH (18:25)
[2021-12-19] MEDS: GABAPENTIN 100 MG CAPSULE PO SCH ×2 (18:25→21:29)
[2021-12-19] MEDS: THEOPHYLLINE ER (24 HR) 400 MG CAPSULE PO SCH (18:25)
[2021-12-19 19:55] LABS: ABG Base Excess -4.2 MMOL/L (-2.5-2.5); ABG Oxygen Saturation 99.7 % (95-100); ABG PCO2 57.6 MM HG (35-48); ABG PH 7.235 (7.35-7.45); ABG TCO2 22.1 MMOL/L (23-27)
[2021-12-19] MEDS: ENOXAPARIN 30 MG/0.3 ML SYRINGE SUBCUT SCH (21:28)
[2021-12-19] MEDS: ROSUVASTATIN 20 MG TABLET PO SCH (21:29)
[2021-12-19] MEDS: MONTELUKAST 10 MG TABLET PO SCH (21:29)
[2021-12-20] MEDS: ALBUTEROL/IPRATROPIUM 3 ML NEB RESP TX SCH ×6 (02:03→23:45)
[2021-12-20] MEDS: methylPREDNISolone SOD SUC 125 MG/2 ML VIAL IV SCH ×4 (02:35→20:29)
[2021-12-20 05:11] LABS: ABG Base Excess -1.3 MMOL/L (-2.5-2.5); ABG HCO3 23.3 MMOL/L (20-26); ABG Oxygen Saturation 98.1 % (95-100); ABG PCO2 53.4 MM HG (35-48); ABG PH 7.295 (7.35-7.45); ABG TCO2 23.5 MMOL/L (23-27)
[2021-12-20 05:23] LABS: Basophils % 0.3 % (0.0-0.8); Hematocrit 34.6 VOL% (35.7-47.0); Hemoglobin 11.3 GM/DL (12.0-16.0); Immature Granulocytes % 2.2 %; Immature Granulocytes Absolute 0.25 #; Lymphocytes # 0.4 10*3/uL (1.4-4.0); Lymphocytes % 3.1 % (21.3-54.2); Mean Corpuscular HGB Conc 32.7 GM/DL (32-36); Mean Corpuscular Volume 88.7 FL (87-102); Mean Platelet Volume 9.7 FL (9.6-12.0); Monocytes % 8.7 % (1.7-12.7); NRBC # 0.03 10*3/uL; Neutrophils % 85.7 % (38.7-73.9); Platelet Count 349 T/CUMM (130-400); Red Cell Distribution Width 13.3 % (9.3-17.3); White Blood Count 11.2 T/CUMM (4-12)
[2021-12-20] MEDS: LEVOTHYROXINE 75 MCG TABLET PO SCH (05:31)
[2021-12-20 05:36] LABS: Calcium 8.8 MG/DL (8.5-10.1); Osmolality,Calculated 274.9 MOS/KG (273-304)
[2021-12-20 05:49] LABS: Lymphocytes 3 % (20-55)
[2021-12-20 05:50] LABS: Platelet Estimate Normal; Total Cells Counted 100
[2021-12-20] MEDS: BUDESONIDE 0.25 MG/2 ML NEB RESP TX SCH ×2 (07:26→20:05)
[2021-12-20] MEDS ORDERED: SODIUM CHLORIDE 0.9% 500 ML IV ONE (09:00)
[2021-12-20] MEDS ORDERED: PHENYLEPHRINE DRIP 40 MG/250 ML PREMIX IV PRN (09:01)
[2021-12-20] MEDS: guaiFENesin 200 MG/10 ML UDCUP NG SCH ×4 (09:13→20:30)
[2021-12-20] MEDS: ASPIRIN CHEW 81 MG TABLET PO SCH (09:14)
[2021-12-20] MEDS: buPROPion 75 MG TABLET NG SCH ×2 (09:14→20:30)
[2021-12-20] MEDS: GABAPENTIN 100 MG CAPSULE PO SCH ×3 (09:14→20:30)
[2021-12-20] MEDS: THEOPHYLLINE ER (24 HR) 400 MG CAPSULE PO SCH (09:14)
[2021-12-20] MEDS: PANTOPRAZOLE 40 MG VIAL IV SCH (09:15)
[2021-12-20] MEDS: amLODIPine 10 MG TABLET PO SCH (09:15)
[2021-12-20] MEDS: SODIUM BICARB INJ 100 MEQ in DEXTROSE 5% NACL 0.45% 1,000 ML IV SCH (09:52)
[2021-12-20] MEDS: cefTRIAXone 1,000 MG in SODIUM CHLORIDE 0.9% 100 ML IV SCH (13:33)
[2021-12-20] MEDS ORDERED: HEPARIN 10,000 UNIT/10 ML VIAL IV ONE (18:15)
[2021-12-20] MEDS: ENOXAPARIN 30 MG/0.3 ML SYRINGE SUBCUT SCH (20:30)
[2021-12-20] MEDS: MONTELUKAST 10 MG TABLET PO SCH (20:30)
[2021-12-20] MEDS: ROSUVASTATIN 20 MG TABLET PO SCH (20:30)
[2021-12-20] MEDS: THEOPHYLLINE 5.33 MG/ML 30 ML/BOTTLE PO SCH (20:31)
[2021-12-21] MEDS: guaiFENesin 200 MG/10 ML UDCUP NG SCH ×6 (00:09→20:42)
[2021-12-21] MEDS: SODIUM BICARB INJ 100 MEQ in DEXTROSE 5% NACL 0.45% 1,000 ML IV SCH (00:10)
[2021-12-21] MEDS: methylPREDNISolone SOD SUC 125 MG/2 ML VIAL IV SCH ×4 (02:50→20:42)
[2021-12-21] MEDS: ALBUTEROL/IPRATROPIUM 3 ML NEB RESP TX SCH ×6 (03:15→22:46)
[2021-12-21 04:28] LABS: ABG HCO3 27.1 MMOL/L (20-26); ABG Oxygen Saturation 97.9 % (95-100); ABG PCO2 45.7 MM HG (35-48); ABG TCO2 25.5 MMOL/L (23-27)
[2021-12-21 04:34] LABS: Basophils # 0.1 10*3/uL (0.0-0.2); Basophils % 0.4 % (0.0-0.8); Hematocrit 32.6 VOL% (35.7-47.0); Hemoglobin 10.7 GM/DL (12.0-16.0); Immature Granulocytes % 5.6 %; Immature Granulocytes Absolute 0.88 #; Lymphocytes # 0.5 10*3/uL (1.4-4.0); Lymphocytes % 3.1 % (21.3-54.2); Mean Corpuscular HGB Conc 32.8 GM/DL (32-36); Mean Corpuscular Volume 87.9 FL (87-102); Mean Platelet Volume 9.8 FL (9.6-12.0); Monocytes # 1.4 10*3/uL (0.11-0.8); Monocytes % 9.2 % (1.7-12.7); NRBC # 0.03 10*3/uL; Neutrophils % 81.7 % (38.7-73.9); Platelet Count 341 T/CUMM (130-400); Red Blood Count 3.71 MC/CUMM (3.8-5.5); Red Cell Distribution Width 13.2 % (9.3-17.3); White Blood Count 15.6 T/CUMM (4-12)
[2021-12-21 04:52] LABS: Calcium 8.7 MG/DL (8.5-10.1); Osmolality,Calculated 280.1 MOS/KG (273-304); Potassium 3.5 MMOL/L (3.5-5.1)
[2021-12-21 05:16] LABS: Lymphocytes 6 % (20-55); Platelet Estimate Normal; Total Cells Counted 100
[2021-12-21] MEDS: LEVOTHYROXINE 75 MCG TABLET PO SCH (05:44)
[2021-12-21] MEDS: BUDESONIDE 0.25 MG/2 ML NEB RESP TX SCH ×2 (06:56→19:25)
[2021-12-21] MEDS: buPROPion 75 MG TABLET NG SCH ×2 (09:44→20:42)
[2021-12-21] MEDS: GABAPENTIN 100 MG CAPSULE PO SCH ×3 (09:44→20:42)
[2021-12-21] MEDS: ASPIRIN CHEW 81 MG TABLET PO SCH (09:44)
[2021-12-21] MEDS: THEOPHYLLINE 5.33 MG/ML 30 ML/BOTTLE PO SCH ×2 (09:45→20:43)
[2021-12-21] MEDS: amLODIPine 10 MG TABLET PO SCH (09:45)
[2021-12-21] MEDS: PANTOPRAZOLE 40 MG VIAL IV SCH (09:50)
[2021-12-21] MEDS ORDERED: DEXTROSE 10% 25 GM/250 ML BAG IV PRN (12:08)
[2021-12-21] MEDS: cefTRIAXone 1,000 MG in SODIUM CHLORIDE 0.9% 100 ML IV SCH (13:39)
[2021-12-21] MEDS: INSULIN REGULAR 100 UNIT/ML SUBCUT SCH (18:40)
[2021-12-21] MEDS: MONTELUKAST 10 MG TABLET PO SCH (20:42)
[2021-12-21] MEDS: ENOXAPARIN 30 MG/0.3 ML SYRINGE SUBCUT SCH (20:42)
[2021-12-21] MEDS: ROSUVASTATIN 20 MG TABLET PO SCH (20:42)
[2021-12-22] MEDS: INSULIN REGULAR 100 UNIT/ML SUBCUT SCH ×4 (00:52→17:23)
[2021-12-22] MEDS: guaiFENesin 200 MG/10 ML UDCUP NG SCH ×6 (00:52→20:37)
[2021-12-22] MEDS: methylPREDNISolone SOD SUC 125 MG/2 ML VIAL IV SCH ×4 (02:57→20:38)
[2021-12-22] MEDS: ALBUTEROL/IPRATROPIUM 3 ML NEB RESP TX SCH ×5 (03:10→20:11)
[2021-12-22 04:47] LABS: Basophils # 0.1 10*3/uL (0.0-0.2); Basophils % 0.6 % (0.0-0.8); Hematocrit 30.9 VOL% (35.7-47.0); Hemoglobin 10.1 GM/DL (12.0-16.0); Immature Granulocytes % 8.7 %; Immature Granulocytes Absolute 1.68 #; Lymphocytes # 0.9 10*3/uL (1.4-4.0); Lymphocytes % 4.5 % (21.3-54.2); Mean Corpuscular HGB Conc 32.7 GM/DL (32-36); Mean Corpuscular Volume 87.5 FL (87-102); Mean Platelet Volume 9.8 FL (9.6-12.0); Monocytes # 1.9 10*3/uL (0.11-0.8); Monocytes % 9.6 % (1.7-12.7); NRBC # 0.02 10*3/uL; Neutrophils % 76.6 % (38.7-73.9); Platelet Count 350 T/CUMM (130-400); Red Blood Count 3.53 MC/CUMM (3.8-5.5); Red Cell Distribution Width 13.4 % (9.3-17.3); White Blood Count 19.2 T/CUMM (4-12)
[2021-12-22 05:02] LABS: ABG Base Excess 2.6 MMOL/L (-2.5-2.5); ABG HCO3 26.7 MMOL/L (20-26); ABG Oxygen Saturation 98.2 % (95-100); ABG PCO2 47.4 MM HG (35-48); ABG PH 7.383 (7.35-7.45); ABG TCO2 25.6 MMOL/L (23-27)
[2021-12-22 05:12] LABS: Calcium 8.7 MG/DL (8.5-10.1); Osmolality,Calculated 281.4 MOS/KG (273-304); Potassium 3.7 MMOL/L (3.5-5.1)
[2021-12-22 05:38] LABS: Lymphocytes 6 % (20-55); Platelet Estimate Adequate; Total Cells Counted 100
[2021-12-22] MEDS: LEVOTHYROXINE 75 MCG TABLET PO SCH (05:45)
[2021-12-22] MEDS: BUDESONIDE 0.25 MG/2 ML NEB RESP TX SCH ×2 (07:03→20:19)
[2021-12-22] MEDS: GABAPENTIN 100 MG CAPSULE PO SCH ×3 (09:09→20:37)
[2021-12-22] MEDS: amLODIPine 10 MG TABLET PO SCH (09:09)
[2021-12-22] MEDS: ASPIRIN CHEW 81 MG TABLET PO SCH (09:09)
[2021-12-22] MEDS: buPROPion 75 MG TABLET NG SCH ×2 (09:09→20:37)
[2021-12-22] MEDS: THEOPHYLLINE 5.33 MG/ML 30 ML/BOTTLE PO SCH ×2 (09:10→20:38)
[2021-12-22] MEDS: PANTOPRAZOLE 40 MG VIAL IV SCH (09:12)
[2021-12-22] MEDS: MULTIVITAMIN LIQUID (CENTRUM) 60 ML BOTTLE PO SCH (11:56)
[2021-12-22] MEDS: cefTRIAXone 1,000 MG in SODIUM CHLORIDE 0.9% 100 ML IV SCH (13:58)
[2021-12-22] MEDS: MONTELUKAST 10 MG TABLET PO SCH (20:37)
[2021-12-22] MEDS: ENOXAPARIN 30 MG/0.3 ML SYRINGE SUBCUT SCH (20:37)
[2021-12-22] MEDS: ROSUVASTATIN 20 MG TABLET PO SCH (20:37)
[2021-12-23] MEDS: ALBUTEROL/IPRATROPIUM 3 ML NEB RESP TX SCH ×7 (00:04→22:25)
[2021-12-23] MEDS: INSULIN REGULAR 100 UNIT/ML SUBCUT SCH ×4 (00:45→17:38)
[2021-12-23] MEDS: guaiFENesin 200 MG/10 ML UDCUP NG SCH ×6 (00:45→20:30)
[2021-12-23] MEDS: methylPREDNISolone SOD SUC 125 MG/2 ML VIAL IV SCH (03:11)
[2021-12-23 04:52] LABS: ABG Base Excess 3.8 MMOL/L (-2.5-2.5); ABG HCO3 27.7 MMOL/L (20-26); ABG Oxygen Saturation 93.3 % (95-100); ABG PH 7.461 (7.35-7.45); ABG PO2 66.3 MM HG (80-95); ABG TCO2 24.7 MMOL/L (23-27)
[2021-12-23 04:54] LABS: Basophils # 0.1 10*3/uL (0.0-0.2); Basophils % 0.6 % (0.0-0.8); Eosinophils # 0.1 10*3/uL (0.0-0.87); Eosinophils % 0.3 % (0.00-10.9); Hematocrit 34.1 VOL% (35.7-47.0); Hemoglobin 11.5 GM/DL (12.0-16.0); Immature Granulocytes % 8.2 %; Immature Granulocytes Absolute 1.98 #; Lymphocytes % 4.2 % (21.3-54.2); Mean Corpuscular HGB Conc 33.7 GM/DL (32-36); Mean Platelet Volume 9.8 FL (9.6-12.0); Monocytes # 2.1 10*3/uL (0.11-0.8); Monocytes % 8.9 % (1.7-12.7); NRBC # 0.02 10*3/uL; Neutrophils % 77.8 % (38.7-73.9); Platelet Count 354 T/CUMM (130-400); Red Blood Count 3.92 MC/CUMM (3.8-5.5); Red Cell Distribution Width 13.3 % (9.3-17.3)
[2021-12-23 05:07] LABS: Potassium 3.6 MMOL/L (3.5-5.1)
[2021-12-23 05:12] LABS: Eosinophils 1 % (0-10); Lymphocytes 9 % (20-55); Nucleated Red Blood Cells 1 (0-5); Platelet Estimate Adequate; Total Cells Counted 100
[2021-12-23] MEDS: LEVOTHYROXINE 75 MCG TABLET PO SCH (05:56)
[2021-12-23] MEDS: BUDESONIDE 0.25 MG/2 ML NEB RESP TX SCH ×2 (07:53→19:49)
[2021-12-23] MEDS: PANTOPRAZOLE 40 MG VIAL IV SCH (09:15)
[2021-12-23] MEDS: buPROPion 75 MG TABLET NG SCH ×2 (09:16→20:30)
[2021-12-23] MEDS: ASPIRIN CHEW 81 MG TABLET PO SCH (09:16)
[2021-12-23] MEDS: methylPREDNISolone SOD SUC 40 MG/1 ML VIAL IV SCH ×2 (09:16→20:30)
[2021-12-23] MEDS: GABAPENTIN 100 MG CAPSULE PO SCH ×3 (09:18→20:30)
[2021-12-23] MEDS: amLODIPine 10 MG TABLET PO SCH (09:18)
[2021-12-23] MEDS: MULTIVITAMIN LIQUID (CENTRUM) 60 ML BOTTLE PO SCH (09:19)
[2021-12-23] MEDS ORDERED: FUROSEMIDE 40 MG/4 ML VIAL IV ONE (10:28)
[2021-12-23] MEDS: cefTRIAXone 1,000 MG in SODIUM CHLORIDE 0.9% 100 ML IV SCH (13:03)
[2021-12-23] MEDS: THEOPHYLLINE 5.33 MG/ML 30 ML/BOTTLE PO SCH ×2 (13:03→20:30)
[2021-12-23] MEDS: ROSUVASTATIN 20 MG TABLET PO SCH (20:30)
[2021-12-23] MEDS: MONTELUKAST 10 MG TABLET PO SCH (20:30)
[2021-12-23] MEDS: ENOXAPARIN 30 MG/0.3 ML SYRINGE SUBCUT SCH (20:30)
[2021-12-24] MEDS: INSULIN REGULAR 100 UNIT/ML SUBCUT SCH ×4 (00:32→17:24)
[2021-12-24] MEDS: guaiFENesin 200 MG/10 ML UDCUP NG SCH ×6 (00:32→20:30)
[2021-12-24] MEDS: ALBUTEROL/IPRATROPIUM 3 ML NEB RESP TX SCH ×6 (02:51→22:15)
[2021-12-24 05:18] LABS: ABG Base Excess 5.5 MMOL/L (-2.5-2.5); ABG HCO3 29.2 MMOL/L (20-26); ABG Oxygen Saturation 92.5 % (95-100); ABG PCO2 42.7 MM HG (35-48); ABG PH 7.455 (7.35-7.45); ABG PO2 66.8 MM HG (80-95); ABG TCO2 26.4 MMOL/L (23-27)
[2021-12-24 05:20] LABS: Basophils # 0.2 10*3/uL (0.0-0.2); Basophils % 0.5 % (0.0-0.8); Hematocrit 35.7 VOL% (35.7-47.0); Hemoglobin 11.9 GM/DL (12.0-16.0); Immature Granulocytes % 6.4 %; Immature Granulocytes Absolute 1.98 #; Lymphocytes # 1.3 10*3/uL (1.4-4.0); Lymphocytes % 4.3 % (21.3-54.2); Mean Corpuscular HGB Conc 33.3 GM/DL (32-36); Mean Corpuscular Volume 86.9 FL (87-102); Mean Platelet Volume 10.2 FL (9.6-12.0); Monocytes % 9.7 % (1.7-12.7); Neutrophils % 79.1 % (38.7-73.9); Platelet Count 348 T/CUMM (130-400); Red Blood Count 4.11 MC/CUMM (3.8-5.5); Red Cell Distribution Width 13.6 % (9.3-17.3); White Blood Count 30.9 T/CUMM (4-12)
[2021-12-24 05:37] LABS: Calcium 9.6 MG/DL (8.5-10.1)
[2021-12-24 05:42] LABS: Lymphocytes 5 % (20-55); Platelet Estimate Adequate; Total Cells Counted 100
[2021-12-24] MEDS: LEVOTHYROXINE 75 MCG TABLET PO SCH (05:51)
[2021-12-24] MEDS: BUDESONIDE 0.25 MG/2 ML NEB RESP TX SCH ×2 (06:40→18:33)
[2021-12-24] MEDS ORDERED: cefTRIAXone 1,000 MG in SODIUM CHLORIDE 0.9% 100 ML IV SCH (09:00)
[2021-12-24] MEDS: amLODIPine 10 MG TABLET PO SCH (09:03)
[2021-12-24] MEDS: ASPIRIN CHEW 81 MG TABLET PO SCH (09:03)
[2021-12-24] MEDS: POLYETHYLENE GLYCOL POWDER 17 GM PACK PO SCH (09:03)
[2021-12-24] MEDS: GABAPENTIN 100 MG CAPSULE PO SCH ×3 (09:03→20:30)
[2021-12-24] MEDS: buPROPion 75 MG TABLET NG SCH ×2 (09:04→20:29)
[2021-12-24] MEDS: methylPREDNISolone SOD SUC 40 MG/1 ML VIAL IV SCH ×2 (09:04→20:29)
[2021-12-24] MEDS: MULTIVITAMIN LIQUID (CENTRUM) 60 ML BOTTLE PO SCH (09:04)
[2021-12-24] MEDS: THEOPHYLLINE 5.33 MG/ML 30 ML/BOTTLE PO SCH ×2 (09:04→20:29)
[2021-12-24] MEDS: PANTOPRAZOLE 40 MG VIAL IV SCH (09:05)
[2021-12-24] MEDS ORDERED: cefOXitin 1,000 MG in SODIUM CHLORIDE 0.9% 100 ML IV SCH (17:00)
[2021-12-24] MEDS: MONTELUKAST 10 MG TABLET PO SCH (20:29)
[2021-12-24] MEDS: ENOXAPARIN 30 MG/0.3 ML SYRINGE SUBCUT SCH (20:30)
[2021-12-24] MEDS: ROSUVASTATIN 20 MG TABLET PO SCH (20:30)
[2021-12-25] MEDS: INSULIN REGULAR 100 UNIT/ML SUBCUT SCH ×4 (00:13→18:13)
[2021-12-25] MEDS: guaiFENesin 200 MG/10 ML UDCUP NG SCH ×6 (00:14→20:27)
[2021-12-25] MEDS: ALBUTEROL/IPRATROPIUM 3 ML NEB RESP TX SCH ×6 (02:40→22:44)
[2021-12-25 03:51] LABS: Arterial Base Excess iSTAT 6 MMOL/L (-2.5-2.5); Arterial Bicarbonate iSTAT 31.2 MMOL/L (20-26); Arterial O2 Saturation iSTAT 97 % (95-100); Arterial PCO2 iSTAT 45 MM HG (35-48); Arterial PO2 iSTAT 88 MM HG (80-95); Arterial Total CO2 iSTAT 33 MMO/L (23-27); Arterial pH iSTAT 7.454 (7.35-7.45)
[2021-12-25 05:24] LABS: Basophils # 0.1 10*3/uL (0.0-0.2); Basophils % 0.4 % (0.0-0.8); Hematocrit 35.2 VOL% (35.7-47.0); Hemoglobin 11.4 GM/DL (12.0-16.0); Lymphocytes # 1.2 10*3/uL (1.4-4.0); Lymphocytes % 4.1 % (21.3-54.2); Mean Corpuscular HGB Conc 32.4 GM/DL (32-36); Mean Corpuscular Volume 89.6 FL (87-102); Mean Platelet Volume 10.5 FL (9.6-12.0); Monocytes # 2.9 10*3/uL (0.11-0.8); Monocytes % 9.5 % (1.7-12.7); NRBC # 0.02 10*3/uL; Platelet Count 315 T/CUMM (130-400); Red Blood Count 3.93 MC/CUMM (3.8-5.5); Red Cell Distribution Width 13.8 % (9.3-17.3); White Blood Count 30.1 T/CUMM (4-12)
[2021-12-25 05:43] LABS: Band Neutrophils 2 % (0-10); Lymphocytes 4 % (20-55); Platelet Estimate Adequate; Total Cells Counted 100
[2021-12-25 05:47] LABS: Phosphorous 2.7 MG/DL (2.5-4.9)
[2021-12-25 05:51] LABS: Alanine Aminotransferase 29 U/L (13-56); Albumin 2.6 G/DL (3.4-5.0); Alkaline Phosphatase 55 U/L (45-117); Aspartate Amino Transferase 15 U/L (0-37); Bilirubin,Total < 0.39 MG/DL (0.20-1.00); Blood Urea Nitrogen 73 MG/DL (7-18); Calcium 9.1 MG/DL (8.5-10.1); Carbon Dioxide 30 MMOL/L (21-32); Chloride 106 MMOL/L (98-107); Estimated Glom Filtration Rate 37 ML/MIN; Glucose 155 MG/DL (74-106); Osmolality,Calculated 307.1 MOS/KG (273-304); Potassium 4.4 MMOL/L (3.5-5.1); Sodium 142 MMOL/L (136-145); Total Protein 5.8 G/DL (6.4-8.2)
[2021-12-25] MEDS: LEVOTHYROXINE 75 MCG TABLET PO SCH (05:51)
[2021-12-25] MEDS: BUDESONIDE 0.25 MG/2 ML NEB RESP TX SCH ×2 (06:50→19:20)
[2021-12-25] MEDS: ASPIRIN CHEW 81 MG TABLET PO SCH (08:32)
[2021-12-25] MEDS: buPROPion 75 MG TABLET NG SCH ×2 (08:32→20:27)
[2021-12-25] MEDS: amLODIPine 10 MG TABLET PO SCH (08:32)
[2021-12-25] MEDS: GABAPENTIN 100 MG CAPSULE PO SCH ×3 (08:32→20:27)
[2021-12-25] MEDS: POLYETHYLENE GLYCOL POWDER 17 GM PACK PO SCH (08:32)
[2021-12-25] MEDS: MULTIVITAMIN LIQUID (CENTRUM) 60 ML BOTTLE PO SCH (08:34)
[2021-12-25] MEDS: methylPREDNISolone SOD SUC 40 MG/1 ML VIAL IV SCH ×2 (08:34→20:26)
[2021-12-25] MEDS: THEOPHYLLINE 5.33 MG/ML 30 ML/BOTTLE PO SCH ×2 (08:34→20:27)
[2021-12-25] MEDS: PANTOPRAZOLE 40 MG VIAL IV SCH (08:36)
[2021-12-25] MEDS ORDERED: HEPARIN 10,000 UNIT/10 ML VIAL IV SCH (10:45)
[2021-12-25] MEDS: ENOXAPARIN 30 MG/0.3 ML SYRINGE SUBCUT SCH (20:26)
[2021-12-25] MEDS: ROSUVASTATIN 20 MG TABLET PO SCH (20:27)
[2021-12-25] MEDS: MONTELUKAST 10 MG TABLET PO SCH (20:27)
[2021-12-26] MEDS: INSULIN REGULAR 100 UNIT/ML SUBCUT SCH ×4 (00:11→17:45)
[2021-12-26] MEDS: guaiFENesin 200 MG/10 ML UDCUP NG SCH ×6 (00:12→20:15)
[2021-12-26] MEDS: ALBUTEROL/IPRATROPIUM 3 ML NEB RESP TX SCH ×6 (03:02→23:05)
[2021-12-26 03:49] LABS: Arterial Base Excess iSTAT 7 MMOL/L (-2.5-2.5); Arterial Bicarbonate iSTAT 31.7 MMOL/L (20-26); Arterial O2 Saturation iSTAT 94 % (95-100); Arterial PCO2 iSTAT 43 MM HG (35-48); Arterial PO2 iSTAT 68 MM HG (80-95); Arterial Total CO2 iSTAT 33 MMO/L (23-27); Arterial pH iSTAT 7.478 (7.35-7.45)
[2021-12-26 04:17] LABS: Basophils # 0.1 10*3/uL (0.0-0.2); Basophils % 0.3 % (0.0-0.8); Hematocrit 34.9 VOL% (35.7-47.0); Hemoglobin 11.1 GM/DL (12.0-16.0); Immature Granulocytes % 3.7 %; Immature Granulocytes Absolute 1.11 #; Lymphocytes # 1.1 10*3/uL (1.4-4.0); Lymphocytes % 3.5 % (21.3-54.2); Mean Corpuscular HGB Conc 31.8 GM/DL (32-36); Mean Corpuscular Volume 89.7 FL (87-102); Mean Platelet Volume 10.6 FL (9.6-12.0); Monocytes # 2.3 10*3/uL (0.11-0.8); Monocytes % 7.5 % (1.7-12.7); Platelet Count 301 T/CUMM (130-400); Red Blood Count 3.89 MC/CUMM (3.8-5.5); Red Cell Distribution Width 14.1 % (9.3-17.3); White Blood Count 30.4 T/CUMM (4-12)
[2021-12-26 04:40] LABS: Calcium 9.2 MG/DL (8.5-10.1); Hypochromia Slight; Lymphocytes 5 % (20-55); Microcytosis Slight; Osmolality,Calculated 302.1 MOS/KG (273-304); Platelet Estimate Adequate; Potassium 5.2 MMOL/L (3.5-5.1); Total Cells Counted 100
[2021-12-26] MEDS: LEVOTHYROXINE 75 MCG TABLET PO SCH (05:51)
[2021-12-26] MEDS: BUDESONIDE 0.25 MG/2 ML NEB RESP TX SCH ×2 (07:00→19:15)
[2021-12-26] MEDS: MULTIVITAMIN LIQUID (CENTRUM) 60 ML BOTTLE PO SCH (08:28)
[2021-12-26] MEDS: ASPIRIN CHEW 81 MG TABLET PO SCH (08:29)
[2021-12-26] MEDS: POLYETHYLENE GLYCOL POWDER 17 GM PACK PO SCH (08:29)
[2021-12-26] MEDS: amLODIPine 10 MG TABLET PO SCH (08:29)
[2021-12-26] MEDS: SODIUM ZIRCONIUM CYCLOSILICATE 10 GM PACK PO SCH ×3 (08:29→20:14)
[2021-12-26] MEDS: THEOPHYLLINE 5.33 MG/ML 30 ML/BOTTLE PO SCH ×2 (08:29→20:15)
[2021-12-26] MEDS: methylPREDNISolone SOD SUC 40 MG/1 ML VIAL IV SCH ×2 (08:30→20:14)
[2021-12-26] MEDS: GABAPENTIN 100 MG CAPSULE PO SCH ×2 (08:30→15:47)
[2021-12-26] MEDS: buPROPion 75 MG TABLET NG SCH (08:30)
[2021-12-26] MEDS: PANTOPRAZOLE 40 MG VIAL IV SCH (08:32)
[2021-12-26] MEDS: MONTELUKAST 10 MG TABLET PO SCH (20:14)
[2021-12-26] MEDS: GABAPENTIN 300 MG CAPSULE PO SCH (20:14)
[2021-12-26] MEDS: ENOXAPARIN 30 MG/0.3 ML SYRINGE SUBCUT SCH (20:14)
[2021-12-26] MEDS: ROSUVASTATIN 20 MG TABLET PO SCH (20:15)
[2021-12-26] MEDS: hydrALAZINE 25 MG TABLET PO SCH (20:15)
[2021-12-27] MEDS: guaiFENesin 200 MG/10 ML UDCUP NG SCH ×7 (00:24→23:29)
[2021-12-27] MEDS: INSULIN REGULAR 100 UNIT/ML SUBCUT SCH ×5 (00:24→23:32)
[2021-12-27] MEDS: ALBUTEROL/IPRATROPIUM 3 ML NEB RESP TX SCH ×6 (03:00→22:55)
[2021-12-27 04:19] LABS: ABG HCO3 30.7 MMOL/L (20-26); ABG Oxygen Saturation 92.4 % (95-100); ABG PCO2 44.9 MM HG (35-48); ABG PH 7.457 (7.35-7.45); ABG PO2 65.4 MM HG (80-95); ABG TCO2 28.4 MMOL/L (23-27)
[2021-12-27 05:02] LABS: Basophils # 0.1 10*3/uL (0.0-0.2); Basophils % 0.3 % (0.0-0.8); Hematocrit 33.3 VOL% (35.7-47.0); Hemoglobin 10.6 GM/DL (12.0-16.0); Immature Granulocytes Absolute 0.84 #; Lymphocytes # 1.1 10*3/uL (1.4-4.0); Mean Corpuscular HGB Conc 31.8 GM/DL (32-36); Mean Corpuscular Volume 91.5 FL (87-102); Mean Platelet Volume 11.2 FL (9.6-12.0); Monocytes # 2.1 10*3/uL (0.11-0.8); Monocytes % 7.6 % (1.7-12.7); Neutrophils % 85.1 % (38.7-73.9); Platelet Count 283 T/CUMM (130-400); Red Blood Count 3.64 MC/CUMM (3.8-5.5); Red Cell Distribution Width 14.1 % (9.3-17.3); White Blood Count 27.9 T/CUMM (4-12)
[2021-12-27 05:10] LABS: Calcium 9.4 MG/DL (8.5-10.1); Osmolality,Calculated 306.8 MOS/KG (273-304); Potassium 4.7 MMOL/L (3.5-5.1)
[2021-12-27 05:26] LABS: Lymphocytes 2 % (20-55); Platelet Estimate Adequate; Total Cells Counted 100
[2021-12-27] MEDS: LEVOTHYROXINE 75 MCG TABLET PO SCH (06:05)
[2021-12-27] MEDS: BUDESONIDE 0.25 MG/2 ML NEB RESP TX SCH ×2 (07:38→18:52)
[2021-12-27] MEDS: amLODIPine 10 MG TABLET PO SCH (08:50)
[2021-12-27] MEDS: buPROPion 75 MG TABLET PO SCH (08:50)
[2021-12-27] MEDS: MULTIVITAMIN LIQUID (CENTRUM) 60 ML BOTTLE PO SCH (08:51)
[2021-12-27] MEDS: PANTOPRAZOLE 40 MG VIAL IV SCH (08:51)
[2021-12-27] MEDS: THEOPHYLLINE 5.33 MG/ML 30 ML/BOTTLE PO SCH ×2 (08:51→20:44)
[2021-12-27] MEDS: hydrALAZINE 25 MG TABLET PO SCH ×3 (08:51→20:42)
[2021-12-27] MEDS: SODIUM ZIRCONIUM CYCLOSILICATE 10 GM PACK PO SCH ×3 (08:52→20:42)
[2021-12-27] MEDS: ASPIRIN CHEW 81 MG TABLET PO SCH (08:52)
[2021-12-27] MEDS: methylPREDNISolone SOD SUC 40 MG/1 ML VIAL IV SCH ×2 (08:52→20:42)
[2021-12-27] MEDS: GABAPENTIN 300 MG CAPSULE PO SCH (08:52)
[2021-12-27] MEDS: POLYETHYLENE GLYCOL POWDER 17 GM PACK PO SCH (08:52)
[2021-12-27] MEDS: GABAPENTIN 100 MG CAPSULE PO SCH ×2 (15:16→20:43)
[2021-12-27] MEDS: ENOXAPARIN 30 MG/0.3 ML SYRINGE SUBCUT SCH (20:41)
[2021-12-27] MEDS: MONTELUKAST 10 MG TABLET PO SCH (20:42)
[2021-12-27] MEDS: ROSUVASTATIN 20 MG TABLET PO SCH (20:42)
[2021-12-28] MEDS: guaiFENesin 200 MG/10 ML UDCUP NG SCH ×6 (03:37→23:38)
[2021-12-28] MEDS: ALBUTEROL/IPRATROPIUM 3 ML NEB RESP TX SCH ×6 (03:45→23:55)
[2021-12-28 04:07] LABS: Basophils # 0.1 10*3/uL (0.0-0.2); Basophils % 0.2 % (0.0-0.8); Hematocrit 33.3 VOL% (35.7-47.0); Hemoglobin 10.5 GM/DL (12.0-16.0); Immature Granulocytes % 1.9 %; Lymphocytes # 0.9 10*3/uL (1.4-4.0); Lymphocytes % 3.4 % (21.3-54.2); Mean Corpuscular HGB Conc 31.5 GM/DL (32-36); Mean Corpuscular Volume 92.5 FL (87-102); Mean Platelet Volume 11.2 FL (9.6-12.0); Monocytes # 1.6 10*3/uL (0.11-0.8); Monocytes % 5.9 % (1.7-12.7); Neutrophils % 88.6 % (38.7-73.9); Platelet Count 302 T/CUMM (130-400); Red Cell Distribution Width 14.4 % (9.3-17.3); White Blood Count 26.4 T/CUMM (4-12)
[2021-12-28 04:25] LABS: Calcium 9.1 MG/DL (8.5-10.1); Osmolality,Calculated 303.8 MOS/KG (273-304); Phosphorous 3.5 MG/DL (2.5-4.9); Potassium 4.2 MMOL/L (3.5-5.1)
[2021-12-28 04:27] LABS: Lymphocytes 6 % (20-55); Total Cells Counted 100
[2021-12-28 04:28] LABS: Platelet Estimate Normal
[2021-12-28] MEDS: LEVOTHYROXINE 75 MCG TABLET PO SCH (06:01)
[2021-12-28] MEDS: INSULIN REGULAR 100 UNIT/ML SUBCUT SCH ×4 (06:06→23:38)
[2021-12-28] MEDS: BUDESONIDE 0.25 MG/2 ML NEB RESP TX SCH ×2 (07:25→19:38)
[2021-12-28] MEDS: hydrALAZINE 25 MG TABLET PO SCH ×3 (08:14→21:37)
[2021-12-28] MEDS: amLODIPine 10 MG TABLET PO SCH (08:14)
[2021-12-28] MEDS: buPROPion 75 MG TABLET PO SCH (08:14)
[2021-12-28] MEDS: ASPIRIN CHEW 81 MG TABLET PO SCH (08:14)
[2021-12-28] MEDS: methylPREDNISolone SOD SUC 40 MG/1 ML VIAL IV SCH ×2 (08:15→21:37)
[2021-12-28] MEDS: PANTOPRAZOLE 40 MG VIAL IV SCH (08:15)
[2021-12-28] MEDS: MULTIVITAMIN LIQUID (CENTRUM) 60 ML BOTTLE PO SCH (08:16)
[2021-12-28] MEDS: POLYETHYLENE GLYCOL POWDER 17 GM PACK PO SCH (08:17)
[2021-12-28] MEDS: GABAPENTIN 100 MG CAPSULE PO SCH ×3 (08:17→21:37)
[2021-12-28] MEDS: THEOPHYLLINE 5.33 MG/ML 30 ML/BOTTLE PO SCH ×2 (08:17→23:23)
[2021-12-28] MEDS ORDERED: ACETAMINOPHEN 325 MG TABLET PO PRN (10:43)
[2021-12-28] MEDS: ENOXAPARIN 30 MG/0.3 ML SYRINGE SUBCUT SCH (21:36)
[2021-12-28] MEDS: MONTELUKAST 10 MG TABLET PO SCH (21:37)
[2021-12-28] MEDS: ROSUVASTATIN 20 MG TABLET PO SCH (21:37)
[2021-12-29] MEDS: ALBUTEROL/IPRATROPIUM 3 ML NEB RESP TX SCH ×5 (03:50→20:00)
[2021-12-29 05:16] LABS: Basophils % 0.1 % (0.0-0.8); Hematocrit 31.9 VOL% (35.7-47.0); Hemoglobin 10.2 GM/DL (12.0-16.0); Immature Granulocytes % 1.5 %; Immature Granulocytes Absolute 0.32 #; Lymphocytes # 0.9 10*3/uL (1.4-4.0); Lymphocytes % 4.2 % (21.3-54.2); Mean Corpuscular Volume 90.4 FL (87-102); Mean Platelet Volume 10.9 FL (9.6-12.0); Monocytes % 4.8 % (1.7-12.7); Neutrophils % 89.4 % (38.7-73.9); Platelet Count 309 T/CUMM (130-400); Red Blood Count 3.53 MC/CUMM (3.8-5.5); Red Cell Distribution Width 14.5 % (9.3-17.3)
[2021-12-29] MEDS: guaiFENesin 200 MG/10 ML UDCUP NG SCH ×6 (05:20→23:26)
[2021-12-29 05:34] LABS: Calcium 9.7 MG/DL (8.5-10.1); Potassium 4.6 MMOL/L (3.5-5.1)
[2021-12-29 05:45] LABS: Hypochromia Slight; Lymphocytes 4 % (20-55); Total Cells Counted 100
[2021-12-29 05:46] LABS: Microcytosis Slight; Platelet Estimate Normal
[2021-12-29] MEDS: LEVOTHYROXINE 75 MCG TABLET PO SCH (05:49)
[2021-12-29] MEDS: INSULIN REGULAR 100 UNIT/ML SUBCUT SCH ×3 (06:12→17:36)
[2021-12-29] MEDS: BUDESONIDE 0.25 MG/2 ML NEB RESP TX SCH ×2 (07:13→20:00)
[2021-12-29] MEDS: GABAPENTIN 100 MG CAPSULE PO SCH ×3 (09:28→20:45)
[2021-12-29] MEDS: ENOXAPARIN 40 MG/0.4 ML SYRINGE SUBCUT SCH (09:28)
[2021-12-29] MEDS: POLYETHYLENE GLYCOL POWDER 17 GM PACK PO SCH (09:29)
[2021-12-29] MEDS: ASPIRIN CHEW 81 MG TABLET PO SCH (09:29)
[2021-12-29] MEDS: buPROPion 75 MG TABLET PO SCH (09:29)
[2021-12-29] MEDS: hydrALAZINE 25 MG TABLET PO SCH ×3 (09:29→20:44)
[2021-12-29] MEDS: methylPREDNISolone SOD SUC 40 MG/1 ML VIAL IV SCH (09:30)
[2021-12-29] MEDS: MULTIVITAMIN LIQUID (CENTRUM) 60 ML BOTTLE PO SCH (09:30)
[2021-12-29] MEDS: THEOPHYLLINE 5.33 MG/ML 30 ML/BOTTLE PO SCH ×2 (09:30→20:46)
[2021-12-29] MEDS: amLODIPine 10 MG TABLET PO SCH (09:32)
[2021-12-29] MEDS: PANTOPRAZOLE 40 MG VIAL IV SCH (09:32)
[2021-12-29] MEDS ORDERED: SODIUM CHLORIDE 0.45% 1,000 ML IV SCH (16:30)
[2021-12-29] MEDS: ROSUVASTATIN 20 MG TABLET PO SCH (20:45)
[2021-12-29] MEDS: MONTELUKAST 10 MG TABLET PO SCH (20:45)
[2021-12-30] MEDS: INSULIN REGULAR 100 UNIT/ML SUBCUT SCH ×4 (00:15→17:27)
[2021-12-30] MEDS: ALBUTEROL/IPRATROPIUM 3 ML NEB RESP TX SCH ×7 (00:15→23:25)
[2021-12-30] MEDS: guaiFENesin 200 MG/10 ML UDCUP NG SCH ×6 (03:21→23:43)
[2021-12-30 05:25] LABS: Basophils # 0.1 10*3/uL (0.0-0.2); Basophils % 0.2 % (0.0-0.8); Hematocrit 35.8 VOL% (35.7-47.0); Hemoglobin 11.4 GM/DL (12.0-16.0); Immature Granulocytes % 1.7 %; Immature Granulocytes Absolute 0.49 #; Lymphocytes # 2.6 10*3/uL (1.4-4.0); Mean Corpuscular HGB Conc 31.8 GM/DL (32-36); Mean Corpuscular Volume 91.3 FL (87-102); Mean Platelet Volume 11.2 FL (9.6-12.0); Monocytes # 2.8 10*3/uL (0.11-0.8); Monocytes % 9.5 % (1.7-12.7); Neutrophils % 79.6 % (38.7-73.9); Platelet Count 348 T/CUMM (130-400); Red Blood Count 3.92 MC/CUMM (3.8-5.5); Red Cell Distribution Width 14.6 % (9.3-17.3); White Blood Count 29.1 T/CUMM (4-12)
[2021-12-30 05:47] LABS: Calcium 9.7 MG/DL (8.5-10.1); Osmolality,Calculated 296.3 MOS/KG (273-304); Potassium 4.4 MMOL/L (3.5-5.1)
[2021-12-30 05:48] LABS: Lymphocytes 9 % (20-55); Platelet Estimate Normal; Total Cells Counted 100
[2021-12-30] MEDS: LEVOTHYROXINE 75 MCG TABLET PO SCH (05:48)
[2021-12-30] MEDS: BUDESONIDE 0.25 MG/2 ML NEB RESP TX SCH ×2 (07:00→19:35)
[2021-12-30] MEDS: POLYETHYLENE GLYCOL POWDER 17 GM PACK PO SCH (08:37)
[2021-12-30] MEDS: ASPIRIN CHEW 81 MG TABLET PO SCH (08:37)
[2021-12-30] MEDS: GABAPENTIN 100 MG CAPSULE PO SCH ×3 (08:37→21:55)
[2021-12-30] MEDS: buPROPion 75 MG TABLET PO SCH (08:38)
[2021-12-30] MEDS: MULTIVITAMIN LIQUID (CENTRUM) 60 ML BOTTLE PO SCH (08:38)
[2021-12-30] MEDS: ENOXAPARIN 40 MG/0.4 ML SYRINGE SUBCUT SCH (08:38)
[2021-12-30] MEDS: PANTOPRAZOLE 40 MG VIAL IV SCH (08:39)
[2021-12-30] MEDS: THEOPHYLLINE 5.33 MG/ML 30 ML/BOTTLE PO SCH ×2 (08:39→21:57)
[2021-12-30] MEDS: methylPREDNISolone SOD SUC 40 MG/1 ML VIAL IV SCH (08:41)
[2021-12-30] MEDS: hydrALAZINE 25 MG TABLET PO SCH (09:04)
[2021-12-30] MEDS: amLODIPine 10 MG TABLET PO SCH (09:05)
[2021-12-30 10:42] LABS: Bilirubin,Urine Negative (Negative); Blood, Urine Negative (Negative); Glucose,Urine (UA) Negative (Negative); Ketones,Urine Negative (Negative); Mucus,Urine Occasional /LPF (Occasional); Nitrite,Urine Negative (Negative); Protein,Urine Negative (Negative); RBC,Urine 2 /HPF (0-4); Squamous Epithelial Cell,Urine Occasional /HPF (0-10); Urine Appearance Clear (Clear); Urine Color Yellow (Yellow); Urine Urobilinogen 0.2 eU/dL (<2.0); Urine pH 5.5 (4.5-8.0)
[2021-12-30] MEDS: NYSTATIN POWDER 15 GM BOTTLE TOP SCH (21:56)
[2021-12-30] MEDS: MONTELUKAST 10 MG TABLET PO SCH (21:56)
[2021-12-30] MEDS: ROSUVASTATIN 20 MG TABLET PO SCH (21:56)
[2021-12-31] MEDS: INSULIN REGULAR 100 UNIT/ML SUBCUT SCH ×5 (00:05→23:30)
[2021-12-31] MEDS: guaiFENesin 200 MG/10 ML UDCUP NG SCH ×6 (03:07→23:00)
[2021-12-31] MEDS: ALBUTEROL/IPRATROPIUM 3 ML NEB RESP TX SCH ×6 (03:40→23:41)
[2021-12-31] MEDS: LEVOTHYROXINE 75 MCG TABLET PO SCH (06:25)
[2021-12-31 06:52] LABS: Basophils % 0.2 % (0.0-0.8); Hematocrit 32.2 VOL% (35.7-47.0); Hemoglobin 10.1 GM/DL (12.0-16.0); Immature Granulocytes % 1.1 %; Immature Granulocytes Absolute 0.24 #; Lymphocytes # 1.7 10*3/uL (1.4-4.0); Lymphocytes % 7.7 % (21.3-54.2); Mean Corpuscular HGB Conc 31.4 GM/DL (32-36); Mean Corpuscular Volume 92.3 FL (87-102); Mean Platelet Volume 10.9 FL (9.6-12.0); Monocytes # 1.4 10*3/uL (0.11-0.8); Monocytes % 6.1 % (1.7-12.7); Neutrophils % 84.9 % (38.7-73.9); Platelet Count 291 T/CUMM (130-400); Red Blood Count 3.49 MC/CUMM (3.8-5.5); Red Cell Distribution Width 14.6 % (9.3-17.3); White Blood Count 22.6 T/CUMM (4-12)
[2021-12-31] MEDS: BUDESONIDE 0.25 MG/2 ML NEB RESP TX SCH ×2 (07:12→18:58)
[2021-12-31 07:25] LABS: Band Neutrophils 5 % (0-10); Eosinophils 1 % (0-10); Lymphocytes 10 % (20-55); Platelet Estimate Normal; Smudge Cells Few; Total Cells Counted 100
[2021-12-31 07:26] LABS: Anisocytosis 1+; Macrocytosis 1+
[2021-12-31 07:31] LABS: Calcium 9.6 MG/DL (8.5-10.1); Potassium 4.1 MMOL/L (3.5-5.1)
[2021-12-31] MEDS: buPROPion 75 MG TABLET PO SCH (09:24)
[2021-12-31] MEDS: ENOXAPARIN 40 MG/0.4 ML SYRINGE SUBCUT SCH (09:24)
[2021-12-31] MEDS: POLYETHYLENE GLYCOL POWDER 17 GM PACK PO SCH (09:24)
[2021-12-31] MEDS: ASPIRIN CHEW 81 MG TABLET PO SCH (09:25)
[2021-12-31] MEDS: predniSONE 20 MG TABLET PO SCH (09:25)
[2021-12-31] MEDS: GABAPENTIN 100 MG CAPSULE PO SCH ×3 (09:25→20:46)
[2021-12-31] MEDS: NYSTATIN POWDER 15 GM BOTTLE TOP SCH ×2 (09:26→20:47)
[2021-12-31] MEDS: THEOPHYLLINE 5.33 MG/ML 30 ML/BOTTLE PO SCH ×2 (09:26→20:47)
[2021-12-31] MEDS: amLODIPine 10 MG TABLET PO SCH (09:26)
[2021-12-31] MEDS: PANTOPRAZOLE 40 MG VIAL IV SCH (09:26)
[2021-12-31] MEDS: MULTIVITAMIN LIQUID (CENTRUM) 60 ML BOTTLE PO SCH (09:26)
[2021-12-31] MEDS: MONTELUKAST 10 MG TABLET PO SCH (20:45)
[2021-12-31] MEDS: ROSUVASTATIN 20 MG TABLET PO SCH (20:46)
[2021-12-31] MEDS: ALPRAZolam 0.5 MG TABLET PO PRN (22:59)
[2022-01-01] MEDS: ALBUTEROL/IPRATROPIUM 3 ML NEB RESP TX SCH ×6 (03:24→23:00)
[2022-01-01] MEDS: guaiFENesin 200 MG/10 ML UDCUP NG SCH ×6 (04:43→23:33)
[2022-01-01 06:01] LABS: Basophils # 0.1 10*3/uL (0.0-0.2); Basophils % 0.2 % (0.0-0.8); Hemoglobin 9.7 GM/DL (12.0-16.0); Immature Granulocytes % 0.9 %; Lymphocytes # 1.2 10*3/uL (1.4-4.0); Lymphocytes % 3.7 % (21.3-54.2); Mean Corpuscular HGB Conc 30.3 GM/DL (32-36); Mean Corpuscular Volume 95.8 FL (87-102); Mean Platelet Volume 11.2 FL (9.6-12.0); Monocytes # 1.1 10*3/uL (0.11-0.8); Monocytes % 3.3 % (1.7-12.7); Neutrophils % 91.9 % (38.7-73.9); Platelet Count 228 T/CUMM (130-400); Red Blood Count 3.34 MC/CUMM (3.8-5.5); White Blood Count 32.9 T/CUMM (4-12)
[2022-01-01 06:09] LABS: Band Neutrophils 5 % (0-10); Lymphocytes 2 % (20-55); Macrocytosis Slight; Total Cells Counted 100
[2022-01-01] MEDS: LEVOTHYROXINE 75 MCG TABLET PO SCH (06:14)
[2022-01-01] MEDS: INSULIN REGULAR 100 UNIT/ML SUBCUT SCH ×4 (06:38→23:41)
[2022-01-01 07:07] LABS: Calcium 9.3 MG/DL (8.5-10.1); Osmolality,Calculated 288.4 MOS/KG (273-304); Potassium 4.3 MMOL/L (3.5-5.1)
[2022-01-01] MEDS: BUDESONIDE 0.25 MG/2 ML NEB RESP TX SCH ×2 (07:30→19:18)
[2022-01-01] MEDS: PANTOPRAZOLE 40 MG VIAL IV SCH (08:54)
[2022-01-01] MEDS: ENOXAPARIN 40 MG/0.4 ML SYRINGE SUBCUT SCH (08:54)
[2022-01-01] MEDS: ASPIRIN CHEW 81 MG TABLET PO SCH (08:54)
[2022-01-01] MEDS: predniSONE 20 MG TABLET PO SCH (08:54)
[2022-01-01] MEDS: THEOPHYLLINE 5.33 MG/ML 30 ML/BOTTLE PO SCH ×2 (08:55→22:19)
[2022-01-01] MEDS: buPROPion 75 MG TABLET PO SCH (08:55)
[2022-01-01] MEDS: NYSTATIN POWDER 15 GM BOTTLE TOP SCH ×2 (08:55→21:00)
[2022-01-01] MEDS: MULTIVITAMIN LIQUID (CENTRUM) 60 ML BOTTLE PO SCH (08:55)
[2022-01-01] MEDS: POLYETHYLENE GLYCOL POWDER 17 GM PACK PO SCH (08:55)
[2022-01-01] MEDS: GABAPENTIN 100 MG CAPSULE PO SCH ×3 (08:56→21:00)
[2022-01-01] MEDS: amLODIPine 10 MG TABLET PO SCH (08:56)
[2022-01-01] MEDS: ALPRAZolam 0.5 MG TABLET PO PRN ×2 (15:17→23:33)
[2022-01-01] MEDS: ROSUVASTATIN 20 MG TABLET PO SCH (20:58)
[2022-01-01] MEDS: MONTELUKAST 10 MG TABLET PO SCH (21:00)
[2022-01-02] MEDS: ALBUTEROL/IPRATROPIUM 3 ML NEB RESP TX SCH ×6 (02:53→23:50)
[2022-01-02 05:32] LABS: Basophils % 0.1 % (0.0-0.8); Eosinophils % 0.1 % (0.00-10.9); Hematocrit 29.5 VOL% (35.7-47.0); Hemoglobin 9.3 GM/DL (12.0-16.0); Immature Granulocytes % 0.7 %; Immature Granulocytes Absolute 0.17 #; Lymphocytes # 0.9 10*3/uL (1.4-4.0); Lymphocytes % 3.7 % (21.3-54.2); Mean Corpuscular HGB Conc 31.5 GM/DL (32-36); Mean Corpuscular Volume 92.2 FL (87-102); Mean Platelet Volume 10.9 FL (9.6-12.0); Monocytes # 0.8 10*3/uL (0.11-0.8); Monocytes % 3.1 % (1.7-12.7); Neutrophils % 92.3 % (38.7-73.9); Platelet Count 270 T/CUMM (130-400); Red Cell Distribution Width 14.8 % (9.3-17.3); White Blood Count 25.3 T/CUMM (4-12)
[2022-01-02 05:54] LABS: Calcium 10.4 MG/DL (8.5-10.1); Osmolality,Calculated 289.1 MOS/KG (273-304); Potassium 3.8 MMOL/L (3.5-5.1)
[2022-01-02 06:02] LABS: Band Neutrophils 2 % (0-10); Lymphocytes 5 % (20-55); Total Cells Counted 100
[2022-01-02 06:05] LABS: Microcytosis Slight; Platelet Estimate Normal; Polychromasia Slight
[2022-01-02] MEDS: guaiFENesin 200 MG/10 ML UDCUP NG SCH ×6 (06:13→23:58)
[2022-01-02] MEDS: LEVOTHYROXINE 75 MCG TABLET PO SCH (06:13)
[2022-01-02] MEDS: INSULIN REGULAR 100 UNIT/ML SUBCUT SCH ×3 (06:29→18:34)
[2022-01-02 06:54] LABS: ABG Base Excess 5.7 MMOL/L (-2.5-2.5); ABG HCO3 29.5 MMOL/L (20-26); ABG Oxygen Saturation 93.9 % (95-100); ABG PH 7.455 (7.35-7.45); ABG PO2 69.6 MM HG (80-95); ABG TCO2 27.5 MMOL/L (23-27)
[2022-01-02] MEDS: BUDESONIDE 0.25 MG/2 ML NEB RESP TX SCH ×2 (07:40→19:15)
[2022-01-02] MEDS: POLYETHYLENE GLYCOL POWDER 17 GM PACK PO SCH (09:07)
[2022-01-02] MEDS: PANTOPRAZOLE 40 MG VIAL IV SCH (09:07)
[2022-01-02] MEDS: buPROPion 75 MG TABLET PO SCH (09:08)
[2022-01-02] MEDS: ASPIRIN CHEW 81 MG TABLET PO SCH (09:08)
[2022-01-02] MEDS: ENOXAPARIN 40 MG/0.4 ML SYRINGE SUBCUT SCH (09:08)
[2022-01-02] MEDS: amLODIPine 10 MG TABLET PO SCH (09:08)
[2022-01-02] MEDS: GABAPENTIN 100 MG CAPSULE PO SCH ×3 (09:09→20:43)
[2022-01-02] MEDS: THEOPHYLLINE 5.33 MG/ML 30 ML/BOTTLE PO SCH ×2 (09:09→20:45)
[2022-01-02] MEDS: MULTIVITAMIN LIQUID (CENTRUM) 60 ML BOTTLE PO SCH (09:09)
[2022-01-02] MEDS: NYSTATIN POWDER 15 GM BOTTLE TOP SCH ×2 (09:10→20:43)
[2022-01-02] MEDS: predniSONE 20 MG TABLET PO SCH (09:10)
[2022-01-02] MEDS: ALPRAZolam 0.5 MG TABLET PO PRN ×2 (12:48→23:58)
[2022-01-02] MEDS: ROSUVASTATIN 20 MG TABLET PO SCH (20:43)
[2022-01-02] MEDS: MONTELUKAST 10 MG TABLET PO SCH (20:43)
[2022-01-03] MEDS: ALBUTEROL/IPRATROPIUM 3 ML NEB RESP TX SCH ×5 (02:50→19:00)
[2022-01-03 04:51] LABS: Arterial Base Excess iSTAT 6 MMOL/L (-2.5-2.5); Arterial Bicarbonate iSTAT 31.2 MMOL/L (20-26); Arterial O2 Saturation iSTAT 94 % (95-100); Arterial PCO2 iSTAT 46 MM HG (35-48); Arterial PO2 iSTAT 67 MM HG (80-95); Arterial Total CO2 iSTAT 33 MMO/L (23-27)
[2022-01-03] MEDS: INSULIN REGULAR 100 UNIT/ML SUBCUT SCH ×4 (05:20→17:47)
[2022-01-03] MEDS: guaiFENesin 200 MG/10 ML UDCUP NG SCH ×5 (05:20→20:05)
[2022-01-03 05:37] LABS: Basophils % 0.1 % (0.0-0.8); Eosinophils # 0.1 10*3/uL (0.0-0.87); Eosinophils % 0.5 % (0.00-10.9); Hematocrit 29.4 VOL% (35.7-47.0); Hemoglobin 9.1 GM/DL (12.0-16.0); Immature Granulocytes % 0.8 %; Immature Granulocytes Absolute 0.13 #; Lymphocytes # 1.1 10*3/uL (1.4-4.0); Lymphocytes % 6.9 % (21.3-54.2); Mean Corpuscular Volume 92.7 FL (87-102); Mean Platelet Volume 10.9 FL (9.6-12.0); Monocytes # 0.8 10*3/uL (0.11-0.8); Monocytes % 4.8 % (1.7-12.7); NRBC # 0.02 10*3/uL; Neutrophils % 86.9 % (38.7-73.9); Platelet Count 266 T/CUMM (130-400); Red Blood Count 3.17 MC/CUMM (3.8-5.5); Red Cell Distribution Width 14.9 % (9.3-17.3); White Blood Count 15.9 T/CUMM (4-12)
[2022-01-03 05:45] LABS: INR 0.9; PT Patient Result 10.3 SECS (10.5-12.0)
[2022-01-03 05:58] LABS: Calcium 9.5 MG/DL (8.5-10.1); Potassium 3.5 MMOL/L (3.5-5.1)
[2022-01-03] MEDS: LEVOTHYROXINE 75 MCG TABLET PO SCH (06:25)
[2022-01-03] MEDS: BUDESONIDE 0.25 MG/2 ML NEB RESP TX SCH ×2 (07:12→19:00)
[2022-01-03] MEDS: PANTOPRAZOLE 40 MG VIAL IV SCH (08:38)
[2022-01-03] MEDS: SODIUM CHLORIDE 0.9% 1,000 ML IV SCH (11:47)
[2022-01-03] MEDS ORDERED: propofoL 200 MG/20 ML VIAL IV ONE (12:38)
[2022-01-03] MEDS ORDERED: LIDOCAINE 2% 5 ML VIAL ONE (12:38)
[2022-01-03] MEDS ORDERED: ETOMIDATE 20 MG/10 ML VIAL IV ONE (12:38)
[2022-01-03] MEDS: THEOPHYLLINE 5.33 MG/ML 30 ML/BOTTLE PO SCH ×2 (14:16→20:05)
[2022-01-03] MEDS: GABAPENTIN 100 MG CAPSULE PO SCH ×3 (14:16→20:05)
[2022-01-03] MEDS: ASPIRIN CHEW 81 MG TABLET PO SCH (14:22)
[2022-01-03] MEDS: buPROPion 75 MG TABLET PO SCH (14:23)
[2022-01-03] MEDS: predniSONE 20 MG TABLET PO SCH (14:23)
[2022-01-03] MEDS: amLODIPine 10 MG TABLET PO SCH (14:23)
[2022-01-03] MEDS: POLYETHYLENE GLYCOL POWDER 17 GM PACK PO SCH (14:23)
[2022-01-03] MEDS: NYSTATIN POWDER 15 GM BOTTLE TOP SCH ×2 (14:49→20:05)
[2022-01-03] MEDS: MULTIVITAMIN LIQUID (CENTRUM) 60 ML BOTTLE PO SCH (14:49)
[2022-01-03] MEDS: MONTELUKAST 10 MG TABLET PO SCH (20:05)
[2022-01-03] MEDS: ROSUVASTATIN 20 MG TABLET PO SCH (20:05)
[2022-01-03] MEDS: ALPRAZolam 0.5 MG TABLET PO PRN (20:05)
[2022-01-04] MEDS: ALBUTEROL/IPRATROPIUM 3 ML NEB RESP TX SCH ×6 (04:00→19:05)
[2022-01-04 04:45] LABS: Basophils % 0.2 % (0.0-0.8); Eosinophils % 0.3 % (0.00-10.9); Hematocrit 29.2 VOL% (35.7-47.0); Hemoglobin 9.2 GM/DL (12.0-16.0); Immature Granulocytes % 0.9 %; Immature Granulocytes Absolute 0.11 #; Lymphocytes # 1.3 10*3/uL (1.4-4.0); Lymphocytes % 11.5 % (21.3-54.2); Mean Corpuscular HGB Conc 31.5 GM/DL (32-36); Mean Platelet Volume 10.4 FL (9.6-12.0); Monocytes # 0.7 10*3/uL (0.11-0.8); Neutrophils % 81.1 % (38.7-73.9); Platelet Count 282 T/CUMM (130-400); Red Blood Count 3.21 MC/CUMM (3.8-5.5); Red Cell Distribution Width 14.5 % (9.3-17.3); White Blood Count 11.7 T/CUMM (4-12)
[2022-01-04] MEDS: guaiFENesin 200 MG/10 ML UDCUP NG SCH ×6 (04:50→22:15)
[2022-01-04 05:11] LABS: Phosphorous 2.8 MG/DL (2.5-4.9)
[2022-01-04 05:13] LABS: Osmolality,Calculated 287.8 MOS/KG (273-304); Potassium 3.4 MMOL/L (3.5-5.1)
[2022-01-04] MEDS ORDERED: DEXTROSE 10% 250 ML BAG IV PRN (05:28)
[2022-01-04] MEDS: INSULIN REGULAR 100 UNIT/ML SUBCUT SCH ×4 (05:40→17:00)
[2022-01-04] MEDS: LEVOTHYROXINE 75 MCG TABLET PO SCH (05:45)
[2022-01-04] MEDS: SODIUM CHLORIDE 0.9% 1,000 ML IV SCH (07:32)
[2022-01-04] MEDS: BUDESONIDE 0.25 MG/2 ML NEB RESP TX SCH ×2 (07:42→19:05)
[2022-01-04] MEDS: PANTOPRAZOLE 40 MG VIAL IV SCH (08:35)
[2022-01-04] MEDS: predniSONE 20 MG TABLET PO SCH (08:36)
[2022-01-04] MEDS: NYSTATIN POWDER 15 GM BOTTLE TOP SCH ×2 (08:36→22:14)
[2022-01-04] MEDS: GABAPENTIN 100 MG CAPSULE PO SCH ×3 (08:36→22:16)
[2022-01-04] MEDS: buPROPion 75 MG TABLET PO SCH (08:36)
[2022-01-04] MEDS: POLYETHYLENE GLYCOL POWDER 17 GM PACK PO SCH (08:37)
[2022-01-04] MEDS: ASPIRIN CHEW 81 MG TABLET PO SCH (08:37)
[2022-01-04] MEDS: amLODIPine 10 MG TABLET PO SCH (08:37)
[2022-01-04] MEDS: MULTIVITAMIN LIQUID (CENTRUM) 60 ML BOTTLE PO SCH (08:40)
[2022-01-04] MEDS: THEOPHYLLINE 5.33 MG/ML 30 ML/BOTTLE PO SCH (08:41)
[2022-01-04] MEDS ORDERED: POTASSIUM BICARB EFFERVESCENT 20 MEQ TAB.EFF PEG ONE (09:00)
[2022-01-04 09:07] LABS: Folate 8.66 NG/ML (5.38-24.0)
[2022-01-04] MEDS: ALPRAZolam 0.5 MG TABLET PO PRN (12:59)
[2022-01-04] MEDS: MONTELUKAST 10 MG TABLET PO SCH (22:16)
[2022-01-04] MEDS: ROSUVASTATIN 20 MG TABLET PO SCH (22:16)
[2022-01-05] MEDS: ALBUTEROL/IPRATROPIUM 3 ML NEB RESP TX SCH ×7 (00:40→23:17)
[2022-01-05] MEDS: INSULIN REGULAR 100 UNIT/ML SUBCUT SCH ×4 (01:21→18:02)
[2022-01-05] MEDS: guaiFENesin 200 MG/10 ML UDCUP NG SCH ×6 (01:25→21:40)
[2022-01-05] MEDS: THEOPHYLLINE 5.33 MG/ML 30 ML/BOTTLE PO SCH ×3 (01:25→21:41)
[2022-01-05] MEDS: ALPRAZolam 0.5 MG TABLET PO PRN ×2 (03:50→21:41)
[2022-01-05 05:17] LABS: Basophils % 0.3 % (0.0-0.8); Eosinophils # 0.1 10*3/uL (0.0-0.87); Eosinophils % 1.2 % (0.00-10.9); Hemoglobin 9.5 GM/DL (12.0-16.0); Immature Granulocytes % 3.3 %; Immature Granulocytes Absolute 0.38 #; Lymphocytes # 1.7 10*3/uL (1.4-4.0); Lymphocytes % 14.2 % (21.3-54.2); Mean Corpuscular HGB Conc 31.7 GM/DL (32-36); Mean Corpuscular Volume 90.6 FL (87-102); Mean Platelet Volume 10.9 FL (9.6-12.0); Monocytes % 8.5 % (1.7-12.7); NRBC # 0.05 10*3/uL; Neutrophils % 72.5 % (38.7-73.9); Platelet Count 319 T/CUMM (130-400); Red Blood Count 3.31 MC/CUMM (3.8-5.5); Red Cell Distribution Width 14.7 % (9.3-17.3); White Blood Count 11.7 T/CUMM (4-12)
[2022-01-05 05:31] LABS: Calcium 9.9 MG/DL (8.5-10.1); Osmolality,Calculated 286.1 MOS/KG (273-304); Potassium 3.6 MMOL/L (3.5-5.1)
[2022-01-05] MEDS: LEVOTHYROXINE 75 MCG TABLET PO SCH (05:49)
[2022-01-05] MEDS: BUDESONIDE 0.25 MG/2 ML NEB RESP TX SCH ×2 (07:08→19:22)
[2022-01-05] MEDS: SODIUM CHLORIDE 0.9% 1,000 ML IV SCH (08:00)
[2022-01-05] MEDS: POLYETHYLENE GLYCOL POWDER 17 GM PACK PO SCH (10:31)
[2022-01-05] MEDS: amLODIPine 10 MG TABLET PO SCH (10:32)
[2022-01-05] MEDS: OMEPRAZOLE ODT 20 MG TABLET PEG SCH (10:32)
[2022-01-05] MEDS: predniSONE 20 MG TABLET PO SCH (10:32)
[2022-01-05] MEDS: GABAPENTIN 100 MG CAPSULE PO SCH ×3 (10:32→21:41)
[2022-01-05] MEDS: buPROPion 75 MG TABLET PO SCH (10:32)
[2022-01-05] MEDS: ASPIRIN CHEW 81 MG TABLET PO SCH (10:32)
[2022-01-05] MEDS: NYSTATIN POWDER 15 GM BOTTLE TOP SCH ×2 (10:33→21:42)
[2022-01-05] MEDS: MULTIVITAMIN LIQUID (CENTRUM) 60 ML BOTTLE PO SCH (11:25)
[2022-01-05 14:41] LABS: Arterial Base Excess iSTAT 6 MMOL/L (-2.5-2.5); Arterial O2 Saturation iSTAT 96 % (95-100); Arterial PCO2 iSTAT 41 MM HG (35-48); Arterial PO2 iSTAT 74 MM HG (80-95); Arterial Total CO2 iSTAT 31 MMO/L (23-27); Arterial pH iSTAT 7.469 (7.35-7.45)
[2022-01-05] MEDS: ROSUVASTATIN 20 MG TABLET PO SCH (21:40)
[2022-01-05] MEDS: MONTELUKAST 10 MG TABLET PO SCH (21:41)
[2022-01-06] MEDS: guaiFENesin 200 MG/10 ML UDCUP NG SCH ×6 (00:54→22:18)
[2022-01-06] MEDS: ALBUTEROL/IPRATROPIUM 3 ML NEB RESP TX SCH ×5 (04:02→20:06)
[2022-01-06] MEDS: LEVOTHYROXINE 75 MCG TABLET PO SCH (05:40)
[2022-01-06 05:48] LABS: Calcium 9.1 MG/DL (8.5-10.1); Osmolality,Calculated 289.7 MOS/KG (273-304); Potassium 3.4 MMOL/L (3.5-5.1)
[2022-01-06] MEDS: INSULIN REGULAR 100 UNIT/ML SUBCUT SCH ×4 (06:00→17:42)
[2022-01-06] MEDS: BUDESONIDE 0.25 MG/2 ML NEB RESP TX SCH ×2 (07:17→20:06)
[2022-01-06] MEDS: buPROPion 75 MG TABLET PO SCH (10:00)
[2022-01-06] MEDS: GABAPENTIN 100 MG CAPSULE PO SCH ×3 (10:00→22:19)
[2022-01-06] MEDS: ASPIRIN CHEW 81 MG TABLET PO SCH (10:00)
[2022-01-06] MEDS: amLODIPine 10 MG TABLET PO SCH (10:00)
[2022-01-06] MEDS: OMEPRAZOLE ODT 20 MG TABLET PEG SCH (10:00)
[2022-01-06] MEDS: predniSONE 20 MG TABLET PO SCH (10:01)
[2022-01-06] MEDS: MULTIVITAMIN LIQUID (CENTRUM) 60 ML BOTTLE PO SCH (10:03)
[2022-01-06] MEDS: POLYETHYLENE GLYCOL POWDER 17 GM PACK PO SCH (10:07)
[2022-01-06] MEDS: NYSTATIN POWDER 15 GM BOTTLE TOP SCH ×2 (10:08→22:19)
[2022-01-06] MEDS: THEOPHYLLINE 5.33 MG/ML 30 ML/BOTTLE PO SCH ×2 (11:36→22:19)
[2022-01-06] MEDS: ALPRAZolam 0.5 MG TABLET PO PRN ×2 (13:45→22:18)
[2022-01-06] MEDS: SODIUM CHLORIDE 0.9% 1,000 ML IV SCH (18:05)
[2022-01-06] MEDS: MONTELUKAST 10 MG TABLET PO SCH (22:19)
[2022-01-06] MEDS: ROSUVASTATIN 20 MG TABLET PO SCH (22:20)
[2022-01-07] MEDS: ALBUTEROL/IPRATROPIUM 3 ML NEB RESP TX SCH ×6 (01:47→19:12)
[2022-01-07] MEDS: guaiFENesin 200 MG/10 ML UDCUP NG SCH ×6 (05:57→22:10)
[2022-01-07] MEDS: INSULIN REGULAR 100 UNIT/ML SUBCUT SCH ×4 (06:00→17:17)
[2022-01-07] MEDS: LEVOTHYROXINE 75 MCG TABLET PO SCH (06:35)
[2022-01-07] MEDS: BUDESONIDE 0.25 MG/2 ML NEB RESP TX SCH ×2 (07:13→19:12)
[2022-01-07] MEDS ORDERED: POTASSIUM CHLORIDE 20 MEQ TABLET PO ONE (09:00)
[2022-01-07] MEDS: ASPIRIN CHEW 81 MG TABLET PO SCH (09:57)
[2022-01-07] MEDS: MULTIVITAMIN LIQUID (CENTRUM) 60 ML BOTTLE PO SCH (09:57)
[2022-01-07] MEDS: THEOPHYLLINE 5.33 MG/ML 30 ML/BOTTLE PO SCH ×2 (09:59→22:10)
[2022-01-07] MEDS: NYSTATIN POWDER 15 GM BOTTLE TOP SCH ×2 (10:00→22:10)
[2022-01-07] MEDS: POLYETHYLENE GLYCOL POWDER 17 GM PACK PO SCH (10:00)
[2022-01-07] MEDS: GABAPENTIN 100 MG CAPSULE PO SCH ×3 (10:01→22:10)
[2022-01-07] MEDS: buPROPion 75 MG TABLET PO SCH (10:01)
[2022-01-07] MEDS: amLODIPine 10 MG TABLET PO SCH (10:02)
[2022-01-07] MEDS: OMEPRAZOLE ODT 20 MG TABLET PEG SCH (10:02)
[2022-01-07] MEDS: predniSONE 20 MG TABLET PO SCH (10:07)
[2022-01-07] MEDS: SODIUM CHLORIDE 0.9% 1,000 ML IV SCH (17:19)
[2022-01-07] MEDS: ROSUVASTATIN 20 MG TABLET PO SCH (22:10)
[2022-01-07] MEDS: MONTELUKAST 10 MG TABLET PO SCH (22:10)
[2022-01-08] MEDS: ALBUTEROL/IPRATROPIUM 3 ML NEB RESP TX SCH ×7 (03:30→23:55)
[2022-01-08] MEDS: INSULIN REGULAR 100 UNIT/ML SUBCUT SCH ×4 (03:54→18:36)
[2022-01-08] MEDS: guaiFENesin 200 MG/10 ML UDCUP NG SCH ×2 (03:55→05:09)
[2022-01-08 05:34] LABS: Calcium 9.1 MG/DL (8.5-10.1); Osmolality,Calculated 283.4 MOS/KG (273-304); Phosphorous 3.7 MG/DL (2.5-4.9); Potassium 4.1 MMOL/L (3.5-5.1)
[2022-01-08] MEDS: BUDESONIDE 0.25 MG/2 ML NEB RESP TX SCH ×2 (07:10→19:49)
[2022-01-08] MEDS ORDERED: guaiFENesin 200 MG/10 ML UDCUP NG PRN (08:00)
[2022-01-08] MEDS: LEVOTHYROXINE 75 MCG TABLET PO SCH (08:05)
[2022-01-08] MEDS: OMEPRAZOLE ODT 20 MG TABLET PEG SCH (09:17)
[2022-01-08] MEDS: buPROPion 75 MG TABLET PO SCH (09:18)
[2022-01-08] MEDS: amLODIPine 10 MG TABLET PO SCH (09:18)
[2022-01-08] MEDS: ASPIRIN CHEW 81 MG TABLET PO SCH (09:19)
[2022-01-08] MEDS: GABAPENTIN 100 MG CAPSULE PO SCH ×3 (09:19→22:25)
[2022-01-08] MEDS: CHOLECALCIFEROL 5,000 UNIT TABLET PO SCH (09:19)
[2022-01-08] MEDS: predniSONE 20 MG TABLET PO SCH (09:19)
[2022-01-08] MEDS: POLYETHYLENE GLYCOL POWDER 17 GM PACK PO SCH (09:20)
[2022-01-08] MEDS: THEOPHYLLINE 5.33 MG/ML 30 ML/BOTTLE PO SCH ×2 (09:21→22:25)
[2022-01-08] MEDS: MULTIVITAMIN LIQUID (CENTRUM) 60 ML BOTTLE PO SCH (09:23)
[2022-01-08] MEDS: NYSTATIN POWDER 15 GM BOTTLE TOP SCH ×2 (15:32→22:25)
[2022-01-08] MEDS: MONTELUKAST 10 MG TABLET PO SCH (22:25)
[2022-01-08] MEDS: ROSUVASTATIN 20 MG TABLET PO SCH (22:25)
[2022-01-09] MEDS: ALBUTEROL/IPRATROPIUM 3 ML NEB RESP TX SCH ×6 (03:45→23:11)
[2022-01-09 05:32] LABS: Basophils # 0.1 10*3/uL (0.0-0.2); Basophils % 0.6 % (0.0-0.8); Eosinophils # 0.1 10*3/uL (0.0-0.87); Eosinophils % 1.3 % (0.00-10.9); Hematocrit 28.8 VOL% (35.7-47.0); Hemoglobin 8.8 GM/DL (12.0-16.0); Immature Granulocytes % 5.4 %; Lymphocytes # 1.7 10*3/uL (1.4-4.0); Lymphocytes % 15.5 % (21.3-54.2); Mean Corpuscular HGB Conc 30.6 GM/DL (32-36); Mean Corpuscular Volume 93.2 FL (87-102); Mean Platelet Volume 10.7 FL (9.6-12.0); Monocytes # 0.7 10*3/uL (0.11-0.8); Monocytes % 6.3 % (1.7-12.7); NRBC # 0.17 10*3/uL; Neutrophils % 70.9 % (38.7-73.9); Platelet Count 365 T/CUMM (130-400); Red Blood Count 3.09 MC/CUMM (3.8-5.5); Red Cell Distribution Width 15.8 % (9.3-17.3); White Blood Count 11.1 T/CUMM (4-12)
[2022-01-09 05:53] LABS: Calcium 9.1 MG/DL (8.5-10.1); Osmolality,Calculated 283.3 MOS/KG (273-304); Potassium 4.1 MMOL/L (3.5-5.1)
[2022-01-09 05:59] LABS: Hypochromia Slight; Lymphocytes 9 % (20-55); Platelet Estimate Adequate; Total Cells Counted 100
[2022-01-09] MEDS: INSULIN REGULAR 100 UNIT/ML SUBCUT SCH ×4 (06:00→18:10)
[2022-01-09] MEDS: LEVOTHYROXINE 75 MCG TABLET PO SCH (06:21)
[2022-01-09] MEDS: BUDESONIDE 0.25 MG/2 ML NEB RESP TX SCH ×2 (07:05→18:53)
[2022-01-09] MEDS: THEOPHYLLINE 5.33 MG/ML 30 ML/BOTTLE PO SCH ×2 (09:06→21:18)
[2022-01-09] MEDS: NYSTATIN POWDER 15 GM BOTTLE TOP SCH ×2 (09:06→21:19)
[2022-01-09] MEDS: GABAPENTIN 100 MG CAPSULE PO SCH ×3 (09:07→21:18)
[2022-01-09] MEDS: amLODIPine 10 MG TABLET PO SCH (09:07)
[2022-01-09] MEDS: CHOLECALCIFEROL 5,000 UNIT TABLET PO SCH (09:08)
[2022-01-09] MEDS: predniSONE 20 MG TABLET PO SCH (09:08)
[2022-01-09] MEDS: POLYETHYLENE GLYCOL POWDER 17 GM PACK PO SCH (09:08)
[2022-01-09] MEDS: buPROPion 75 MG TABLET PO SCH (09:08)
[2022-01-09] MEDS: OMEPRAZOLE ODT 20 MG TABLET PEG SCH (09:08)
[2022-01-09] MEDS: ASPIRIN CHEW 81 MG TABLET PO SCH (09:08)
[2022-01-09] MEDS: MULTIVITAMIN LIQUID (CENTRUM) 60 ML BOTTLE PO SCH (16:37)
[2022-01-09] MEDS ORDERED: TUBERCULIN SKIN TEST 0.1 ML SYRINGE INTRADERM ONE (17:00)
[2022-01-09] MEDS: MONTELUKAST 10 MG TABLET PO SCH (21:17)
[2022-01-09] MEDS: ROSUVASTATIN 20 MG TABLET PO SCH (21:18)
[2022-01-10] MEDS: INSULIN REGULAR 100 UNIT/ML SUBCUT SCH ×3 (00:01→12:28)
[2022-01-10] MEDS: ALBUTEROL/IPRATROPIUM 3 ML NEB RESP TX SCH ×4 (02:40→14:13)
[2022-01-10 05:28] LABS: Basophils % 0.3 % (0.0-0.8); Eosinophils # 0.1 10*3/uL (0.0-0.87); Eosinophils % 1.2 % (0.00-10.9); Hematocrit 28.2 VOL% (35.7-47.0); Hemoglobin 8.5 GM/DL (12.0-16.0); Immature Granulocytes % 5.5 %; Immature Granulocytes Absolute 0.51 #; Lymphocytes # 1.8 10*3/uL (1.4-4.0); Lymphocytes % 19.1 % (21.3-54.2); Mean Corpuscular HGB Conc 30.1 GM/DL (32-36); Mean Corpuscular Volume 92.2 FL (87-102); Mean Platelet Volume 10.6 FL (9.6-12.0); Monocytes # 0.6 10*3/uL (0.11-0.8); Monocytes % 6.8 % (1.7-12.7); NRBC # 0.11 10*3/uL; Neutrophils % 67.1 % (38.7-73.9); Platelet Count 371 T/CUMM (130-400); Red Blood Count 3.06 MC/CUMM (3.8-5.5); Red Cell Distribution Width 15.7 % (9.3-17.3); White Blood Count 9.3 T/CUMM (4-12)
[2022-01-10] MEDS: LEVOTHYROXINE 75 MCG TABLET PO SCH (05:44)
[2022-01-10 05:50] LABS: Band Neutrophils 1 % (0-10); Hypochromia Slight; Lymphocytes 20 % (20-55); Nucleated Red Blood Cells 2 (0-5); Platelet Estimate Adequate; Total Cells Counted 100
[2022-01-10 05:51] LABS: Calcium 9.1 MG/DL (8.5-10.1); Osmolality,Calculated 277.5 MOS/KG (273-304); Potassium 3.8 MMOL/L (3.5-5.1)
[2022-01-10] MEDS: BUDESONIDE 0.25 MG/2 ML NEB RESP TX SCH (07:17)
[2022-01-10] MEDS: THEOPHYLLINE 5.33 MG/ML 30 ML/BOTTLE PO SCH (09:40)
[2022-01-10] MEDS: MULTIVITAMIN LIQUID (CENTRUM) 60 ML BOTTLE PO SCH (09:42)
[2022-01-10] MEDS: POLYETHYLENE GLYCOL POWDER 17 GM PACK PO SCH (09:46)
[2022-01-10] MEDS: ASPIRIN CHEW 81 MG TABLET PO SCH (09:49)
[2022-01-10] MEDS: OMEPRAZOLE ODT 20 MG TABLET PEG SCH (09:49)
[2022-01-10] MEDS: buPROPion 75 MG TABLET PO SCH (09:50)
[2022-01-10] MEDS: GABAPENTIN 100 MG CAPSULE PO SCH ×2 (09:50→16:09)
[2022-01-10] MEDS: amLODIPine 10 MG TABLET PO SCH (09:51)
[2022-01-10] MEDS: predniSONE 20 MG TABLET PO SCH (09:51)
[2022-01-10] MEDS: CHOLECALCIFEROL 5,000 UNIT TABLET PO SCH (09:51)
[2022-01-10] MEDS: NYSTATIN POWDER 15 GM BOTTLE TOP SCH (09:51)
[2022-01-10 12:09] VITALS: BP 117/58
== END 2022-01-10 15:21 | disposition swing bed (61) | DRG 208 ==
LOC: EDBD → EDUNIT# → N.ED 12:45 → N.TELEN 16:12 → SUATTDRO 16:12 → N.TELEN 17:20 → N.ICU 12-17 12:10 → N.CC 12-19 21:16 → N.5E 01-04 15:10
PROVIDERS: ADMIT Internal Medicine; ATTEND Internal Medicine
PROC: EGDWPEG (ICD-10-PCS; 2022-01-03 11:35)

== ENCOUNTER 2022-02-21 20:14 | Inpatient (IN) ==
[2022-02-21 21:10] LABS: Basophils # 0.1 10*3/uL (0.0-0.2); Basophils % 0.4 % (0.0-0.8); Eosinophils % 0.2 % (0.00-10.9); Hematocrit 34.8 VOL% (35.7-47.0); Hemoglobin 10.5 GM/DL (12.0-16.0); Immature Granulocytes % 1.3 %; Immature Granulocytes Absolute 0.21 #; Lymphocytes # 1.7 10*3/uL (1.4-4.0); Lymphocytes % 10.5 % (21.3-54.2); Mean Corpuscular HGB Conc 30.2 GM/DL (32-36); Mean Corpuscular Volume 89.7 FL (87-102); Mean Platelet Volume 9.5 FL (9.6-12.0); Monocytes # 1.4 10*3/uL (0.11-0.8); Monocytes % 8.7 % (1.7-12.7); NRBC # 0.04 10*3/uL; Neutrophils % 78.9 % (38.7-73.9); Platelet Count 422 T/CUMM (130-400); Red Blood Count 3.88 MC/CUMM (3.8-5.5); Red Cell Distribution Width 16.2 % (9.3-17.3); White Blood Count 16.6 T/CUMM (4-12)
[2022-02-21 21:21] LABS: PT Patient Result 10.6 SECS (10.5-12.0)
[2022-02-21] MEDS ORDERED: ALBUTEROL/IPRATROPIUM 3 ML NEB RESP TX STA (21:22)
[2022-02-21] MEDS ORDERED: methylPREDNISolone SOD SUC 125 MG/2 ML VIAL IV STA (21:22)
[2022-02-21] MEDS ORDERED: LEVOFLOXACIN INJ 750 MG/150 ML PREMIX IV STA (21:22)
[2022-02-21 21:31] LABS: Albumin 3.2 G/DL (3.4-5.0); Bilirubin,Total 0.5 MG/DL (0.20-1.00); Calcium 9.1 MG/DL (8.5-10.1); Osmolality,Calculated 276.5 MOS/KG (273-304); Potassium 4.5 MMOL/L (3.5-5.1); Total Protein 6.6 G/DL (6.4-8.2)
[2022-02-21] MEDS ORDERED: ENOXAPARIN 40 MG/0.4 ML SYRINGE SUBCUT SCH (23:00)
[2022-02-21] MEDS ORDERED: ACETAMINOPHEN 325 MG TABLET PO PRN (23:26)
[2022-02-21] MEDS ORDERED: DEXTROSE 50% 25 GM/50 ML VIAL IV PRN (23:26)
[2022-02-21] MEDS ORDERED: ONDANSETRON 4 MG/2 ML VIAL IV PRN (23:26)
[2022-02-21] MEDS ORDERED: GLUCAGON 1 MG VIAL IM PRN (23:26)
[2022-02-21] MEDS ORDERED: MAGNESIUM SULF RIDER 4 GM/100 ML PREMIX IV PRN (23:57)
[2022-02-21] MEDS ORDERED: MAGNESIUM SULF RIDER 2 GM/50 ML PREMIX IV PRN (23:57)
[2022-02-21] MEDS ORDERED: POTASSIUM CHLORIDE RIDER 10 MEQ/100 ML PREMIX IV PRN (23:57)
[2022-02-22] MEDS ORDERED: DEXTROSE 10% 250 ML BAG IV PRN (00:19)
[2022-02-22] MEDS ORDERED: ENOXAPARIN 40 MG/0.4 ML SYRINGE SUBCUT ONE (00:30)
[2022-02-22] MEDS ORDERED: FUROSEMIDE 40 MG/4 ML VIAL IV ONE ×2 (01:00→09:32)
[2022-02-22] MEDS ORDERED: hydrOXYzine HCL 25 MG TABLET PO PRN (01:01)
[2022-02-22] MEDS: ALBUTEROL/IPRATROPIUM 3 ML NEB RESP TX SCH ×4 (01:30→19:50)
[2022-02-22] MEDS ORDERED: FUROSEMIDE 20 MG/2 ML VIAL IV ONE (01:39)
[2022-02-22] MEDS: methylPREDNISolone SOD SUC 40 MG/1 ML VIAL IV SCH ×4 (02:35→21:46)
[2022-02-22 05:01] LABS: Basophils % 0.2 % (0.0-0.8); Hematocrit 33.3 VOL% (35.7-47.0); Hemoglobin 10.1 GM/DL (12.0-16.0); Immature Granulocytes % 1.2 %; Immature Granulocytes Absolute 0.14 #; Lymphocytes # 0.5 10*3/uL (1.4-4.0); Lymphocytes % 4.7 % (21.3-54.2); Mean Corpuscular HGB Conc 30.3 GM/DL (32-36); Mean Platelet Volume 9.4 FL (9.6-12.0); Monocytes # 0.1 10*3/uL (0.11-0.8); Monocytes % 0.8 % (1.7-12.7); NRBC # 0.02 10*3/uL; Neutrophils % 93.1 % (38.7-73.9); Platelet Count 374 T/CUMM (130-400); Red Blood Count 3.74 MC/CUMM (3.8-5.5); Red Cell Distribution Width 16.2 % (9.3-17.3); White Blood Count 11.2 T/CUMM (4-12)
[2022-02-22 05:19] LABS: Hypochromia Slight; Lymphocytes 4 % (20-55); Metamyelocytes 1 %; Total Cells Counted 100
[2022-02-22 05:20] LABS: Microcytosis 1+; Polychromasia Slight
[2022-02-22 05:26] LABS: Calcium 9.3 MG/DL (8.5-10.1); Osmolality,Calculated 276.1 MOS/KG (273-304); Potassium 4.7 MMOL/L (3.5-5.1)
[2022-02-22] MEDS: LEVOTHYROXINE 75 MCG TABLET PO SCH (06:06)
[2022-02-22] MEDS: CLORAZEPATE 7.5 MG TABLET PO PRN ×2 (06:33→21:46)
[2022-02-22] MEDS ORDERED: BUDESONIDE GLYCOPYR FORMOTEROL INH SCH (09:00)
[2022-02-22] MEDS: ASPIRIN EC 81 MG TABLET PO SCH (09:39)
[2022-02-22] MEDS: buPROPion XL 150 MG TABLET PO SCH (09:40)
[2022-02-22] MEDS: CHOLECALCIFEROL 5,000 UNIT TABLET PO SCH (09:40)
[2022-02-22] MEDS: PANTOPRAZOLE 40 MG TABLET PO SCH (09:40)
[2022-02-22] MEDS: LOSARTAN 50 MG TABLET PO SCH (09:40)
[2022-02-22] MEDS: amLODIPine 10 MG TABLET PO SCH (09:40)
[2022-02-22] MEDS: GABAPENTIN 300 MG CAPSULE PO SCH ×3 (09:40→21:45)
[2022-02-22] MEDS: THEOPHYLLINE 5.33 MG/ML 30 ML/BOTTLE PO SCH ×2 (09:43→21:55)
[2022-02-22] MEDS: INSULIN REGULAR 100 UNIT/ML SUBCUT SCH ×4 (09:47→21:46)
[2022-02-22] MEDS: cefTRIAXone 1,000 MG in SODIUM CHLORIDE 0.9% 100 ML IV SCH (09:50)
[2022-02-22] MEDS: FUROSEMIDE 20 MG/2 ML VIAL IV SCH (09:50)
[2022-02-22] MEDS: DOCUSATE SODIUM 100 MG CAPSULE PO SCH ×2 (09:50→21:45)
[2022-02-22] MEDS: Vortioxetine [Trintellix] 20 mg tablet PO SCH (09:54)
[2022-02-22] MEDS: ENOXAPARIN 120 MG/0.8 ML SYRINGE SUBCUT SCH ×2 (10:26→21:46)
[2022-02-22] MEDS: AZITHROMYCIN INJ 500 MG in SODIUM CHLORIDE 0.9% 250 ML IV SCH (10:29)
[2022-02-22] MEDS ORDERED: ZINC OXIDE PASTE 113 GM TUBE TOP PRN (12:24)
[2022-02-22] MEDS: BUDESONIDE 0.5 MG/2 ML NEB RESP TX SCH (19:50)
[2022-02-22] MEDS ORDERED: ENOXAPARIN 40 MG/0.4 ML SYRINGE SUBCUT SCH (21:00)
[2022-02-22] MEDS: ROSUVASTATIN 20 MG TABLET PO SCH (21:46)
[2022-02-23] MEDS: ALBUTEROL/IPRATROPIUM 3 ML NEB RESP TX SCH ×4 (00:35→19:12)
[2022-02-23] MEDS: methylPREDNISolone SOD SUC 40 MG/1 ML VIAL IV SCH ×3 (03:29→21:56)
[2022-02-23 05:55] LABS: Basophils % 0.1 % (0.0-0.8); Hematocrit 31.5 VOL% (35.7-47.0); Hemoglobin 9.7 GM/DL (12.0-16.0); Immature Granulocytes % 1.3 %; Immature Granulocytes Absolute 0.21 #; Lymphocytes % 6.6 % (21.3-54.2); Mean Corpuscular HGB Conc 30.8 GM/DL (32-36); Mean Corpuscular Volume 86.8 FL (87-102); Mean Platelet Volume 9.5 FL (9.6-12.0); Monocytes # 0.5 10*3/uL (0.11-0.8); Monocytes % 3.3 % (1.7-12.7); NRBC # 0.07 10*3/uL; Neutrophils % 88.7 % (38.7-73.9); Platelet Count 435 T/CUMM (130-400); Red Blood Count 3.63 MC/CUMM (3.8-5.5); Red Cell Distribution Width 16.4 % (9.3-17.3); White Blood Count 15.7 T/CUMM (4-12)
[2022-02-23] MEDS: LEVOTHYROXINE 75 MCG TABLET PO SCH (06:08)
[2022-02-23 07:19] LABS: Calcium 9.5 MG/DL (8.5-10.1); Osmolality,Calculated 273.2 MOS/KG (273-304); Potassium 4.4 MMOL/L (3.5-5.1)
[2022-02-23] MEDS: BUDESONIDE 0.5 MG/2 ML NEB RESP TX SCH ×2 (07:30→19:12)
[2022-02-23] MEDS: INSULIN REGULAR 100 UNIT/ML SUBCUT SCH ×4 (09:09→20:11)
[2022-02-23] MEDS: CHOLECALCIFEROL 5,000 UNIT TABLET PO SCH (09:29)
[2022-02-23] MEDS: ASPIRIN EC 81 MG TABLET PO SCH (09:29)
[2022-02-23] MEDS: FUROSEMIDE 20 MG/2 ML VIAL IV SCH (09:29)
[2022-02-23] MEDS: DOCUSATE SODIUM 100 MG CAPSULE PO SCH ×2 (09:29→21:57)
[2022-02-23] MEDS: LOSARTAN 50 MG TABLET PO SCH (09:29)
[2022-02-23] MEDS: GABAPENTIN 300 MG CAPSULE PO SCH ×3 (09:31→21:43)
[2022-02-23] MEDS: amLODIPine 10 MG TABLET PO SCH (09:31)
[2022-02-23] MEDS: PANTOPRAZOLE 40 MG TABLET PO SCH (09:31)
[2022-02-23] MEDS: cefTRIAXone 1,000 MG in SODIUM CHLORIDE 0.9% 100 ML IV SCH (09:33)
[2022-02-23] MEDS: buPROPion XL 150 MG TABLET PO SCH (09:33)
[2022-02-23] MEDS: AZITHROMYCIN INJ 500 MG in SODIUM CHLORIDE 0.9% 250 ML IV SCH (09:33)
[2022-02-23] MEDS: ENOXAPARIN 120 MG/0.8 ML SYRINGE SUBCUT SCH ×2 (09:33→21:44)
[2022-02-23] MEDS: Vortioxetine [Trintellix] 20 mg tablet PO SCH (09:33)
[2022-02-23] MEDS: THEOPHYLLINE 5.33 MG/ML 30 ML/BOTTLE PO SCH ×2 (09:35→21:44)
[2022-02-23] MEDS: ROSUVASTATIN 20 MG TABLET PO SCH (21:43)
[2022-02-24] MEDS: ALBUTEROL/IPRATROPIUM 3 ML NEB RESP TX SCH ×4 (00:06→19:00)
[2022-02-24 05:40] LABS: Basophils % 0.1 % (0.0-0.8); Hematocrit 30.4 VOL% (35.7-47.0); Hemoglobin 9.4 GM/DL (12.0-16.0); Immature Granulocytes % 1.3 %; Immature Granulocytes Absolute 0.21 #; Lymphocytes # 1.2 10*3/uL (1.4-4.0); Lymphocytes % 7.3 % (21.3-54.2); Mean Corpuscular HGB Conc 30.9 GM/DL (32-36); Mean Corpuscular Volume 86.4 FL (87-102); Mean Platelet Volume 9.5 FL (9.6-12.0); Monocytes # 0.6 10*3/uL (0.11-0.8); NRBC # 0.05 10*3/uL; Neutrophils % 87.3 % (38.7-73.9); Platelet Count 454 T/CUMM (130-400); Red Blood Count 3.52 MC/CUMM (3.8-5.5); Red Cell Distribution Width 16.3 % (9.3-17.3); White Blood Count 15.9 T/CUMM (4-12)
[2022-02-24 05:59] LABS: Calcium 9.7 MG/DL (8.5-10.1); Osmolality,Calculated 266.8 MOS/KG (273-304); Potassium 4.2 MMOL/L (3.5-5.1)
[2022-02-24] MEDS: LEVOTHYROXINE 75 MCG TABLET PO SCH (06:01)
[2022-02-24] MEDS: BUDESONIDE 0.5 MG/2 ML NEB RESP TX SCH ×2 (07:25→19:00)
[2022-02-24] MEDS: INSULIN REGULAR 100 UNIT/ML SUBCUT SCH ×4 (09:10→21:09)
[2022-02-24] MEDS: ASPIRIN EC 81 MG TABLET PO SCH (09:17)
[2022-02-24] MEDS: GABAPENTIN 300 MG CAPSULE PO SCH ×3 (09:18→21:02)
[2022-02-24] MEDS: LOSARTAN 50 MG TABLET PO SCH (09:18)
[2022-02-24] MEDS: buPROPion XL 150 MG TABLET PO SCH (09:18)
[2022-02-24] MEDS: DOCUSATE SODIUM 100 MG CAPSULE PO SCH ×3 (09:18→21:08)
[2022-02-24] MEDS: THEOPHYLLINE 5.33 MG/ML 30 ML/BOTTLE PO SCH ×2 (09:18→21:13)
[2022-02-24] MEDS: PANTOPRAZOLE 40 MG TABLET PO SCH (09:19)
[2022-02-24] MEDS: CHOLECALCIFEROL 5,000 UNIT TABLET PO SCH (09:19)
[2022-02-24] MEDS: amLODIPine 10 MG TABLET PO SCH (09:19)
[2022-02-24] MEDS: FUROSEMIDE 20 MG/2 ML VIAL IV SCH ×2 (09:19→16:36)
[2022-02-24] MEDS: methylPREDNISolone SOD SUC 40 MG/1 ML VIAL IV SCH ×2 (09:20→21:05)
[2022-02-24] MEDS: cefTRIAXone 1,000 MG in SODIUM CHLORIDE 0.9% 100 ML IV SCH (09:20)
[2022-02-24] MEDS: Vortioxetine [Trintellix] 20 mg tablet PO SCH (09:21)
[2022-02-24] MEDS: ENOXAPARIN 120 MG/0.8 ML SYRINGE SUBCUT SCH (09:21)
[2022-02-24] MEDS: AZITHROMYCIN INJ 500 MG in SODIUM CHLORIDE 0.9% 250 ML IV SCH (12:20)
[2022-02-24] MEDS ORDERED: APIXABAN 5 MG TABLET PO SCH (21:00)
[2022-02-24] MEDS: ROSUVASTATIN 20 MG TABLET PO SCH (21:02)
[2022-02-24] MEDS: APIXABAN 5 MG TABLET PO SCH (21:02)
[2022-02-25] MEDS: ALBUTEROL/IPRATROPIUM 3 ML NEB RESP TX SCH ×4 (01:49→19:42)
[2022-02-25 06:11] LABS: Basophils % 0.1 % (0.0-0.8); Hematocrit 31.2 VOL% (35.7-47.0); Hemoglobin 9.8 GM/DL (12.0-16.0); Immature Granulocytes % 1.1 %; Immature Granulocytes Absolute 0.11 #; Lymphocytes % 10.1 % (21.3-54.2); Mean Corpuscular HGB Conc 31.4 GM/DL (32-36); Mean Corpuscular Volume 85.5 FL (87-102); Mean Platelet Volume 9.3 FL (9.6-12.0); Monocytes # 0.7 10*3/uL (0.11-0.8); Monocytes % 7.3 % (1.7-12.7); NRBC # 0.04 10*3/uL; Neutrophils % 81.4 % (38.7-73.9); Platelet Count 425 T/CUMM (130-400); Red Blood Count 3.65 MC/CUMM (3.8-5.5); Red Cell Distribution Width 15.8 % (9.3-17.3); White Blood Count 9.8 T/CUMM (4-12)
[2022-02-25] MEDS: LEVOTHYROXINE 75 MCG TABLET PO SCH (06:27)
[2022-02-25 06:31] LABS: Calcium 9.4 MG/DL (8.5-10.1); Osmolality,Calculated 272.4 MOS/KG (273-304); Potassium 4.1 MMOL/L (3.5-5.1)
[2022-02-25] MEDS: BUDESONIDE 0.5 MG/2 ML NEB RESP TX SCH ×2 (07:20→19:48)
[2022-02-25] MEDS: INSULIN REGULAR 100 UNIT/ML SUBCUT SCH ×4 (08:08→20:45)
[2022-02-25] MEDS: amLODIPine 10 MG TABLET PO SCH (09:11)
[2022-02-25] MEDS: APIXABAN 5 MG TABLET PO SCH ×2 (09:11→20:39)
[2022-02-25] MEDS: buPROPion XL 150 MG TABLET PO SCH (09:11)
[2022-02-25] MEDS: GABAPENTIN 300 MG CAPSULE PO SCH ×3 (09:12→20:39)
[2022-02-25] MEDS: PANTOPRAZOLE 40 MG TABLET PO SCH (09:12)
[2022-02-25] MEDS: ASPIRIN EC 81 MG TABLET PO SCH (09:12)
[2022-02-25] MEDS: FUROSEMIDE 20 MG/2 ML VIAL IV SCH ×2 (09:12→16:09)
[2022-02-25] MEDS: methylPREDNISolone SOD SUC 40 MG/1 ML VIAL IV SCH ×2 (09:12→20:43)
[2022-02-25] MEDS: DOCUSATE SODIUM 100 MG CAPSULE PO SCH ×2 (09:12→20:43)
[2022-02-25] MEDS: LOSARTAN 50 MG TABLET PO SCH (09:12)
[2022-02-25] MEDS: Vortioxetine [Trintellix] 20 mg tablet PO SCH (09:13)
[2022-02-25] MEDS: cefTRIAXone 1,000 MG in SODIUM CHLORIDE 0.9% 100 ML IV SCH (09:13)
[2022-02-25] MEDS: CHOLECALCIFEROL 5,000 UNIT TABLET PO SCH (09:13)
[2022-02-25] MEDS: THEOPHYLLINE 5.33 MG/ML 30 ML/BOTTLE PO SCH ×2 (09:16→21:48)
[2022-02-25] MEDS: AZITHROMYCIN INJ 500 MG in SODIUM CHLORIDE 0.9% 250 ML IV SCH (09:17)
[2022-02-25] MEDS ORDERED: FLUCONAZOLE 150 MG TABLET PO ONE (10:05)
[2022-02-25] MEDS: ROSUVASTATIN 20 MG TABLET PO SCH (20:39)
[2022-02-26] MEDS: ALBUTEROL/IPRATROPIUM 3 ML NEB RESP TX SCH ×4 (00:12→20:22)
[2022-02-26 05:02] LABS: Basophils % 0.1 % (0.0-0.8); Hematocrit 33.1 VOL% (35.7-47.0); Hemoglobin 10.2 GM/DL (12.0-16.0); Immature Granulocytes % 1.2 %; Immature Granulocytes Absolute 0.12 #; Lymphocytes # 1.3 10*3/uL (1.4-4.0); Mean Corpuscular HGB Conc 30.8 GM/DL (32-36); Mean Corpuscular Volume 84.7 FL (87-102); Mean Platelet Volume 9.2 FL (9.6-12.0); Monocytes # 0.6 10*3/uL (0.11-0.8); Monocytes % 6.3 % (1.7-12.7); Neutrophils % 79.4 % (38.7-73.9); Platelet Count 451 T/CUMM (130-400); Red Blood Count 3.91 MC/CUMM (3.8-5.5); Red Cell Distribution Width 15.6 % (9.3-17.3); White Blood Count 9.7 T/CUMM (4-12)
[2022-02-26 05:18] LABS: Calcium 9.6 MG/DL (8.5-10.1); Osmolality,Calculated 271.4 MOS/KG (273-304); Potassium 4.4 MMOL/L (3.5-5.1)
[2022-02-26] MEDS: LEVOTHYROXINE 75 MCG TABLET PO SCH (06:02)
[2022-02-26] MEDS: BUDESONIDE 0.5 MG/2 ML NEB RESP TX SCH ×2 (07:45→20:22)
[2022-02-26] MEDS: FUROSEMIDE 20 MG/2 ML VIAL IV SCH ×2 (09:54→16:57)
[2022-02-26] MEDS: THEOPHYLLINE 5.33 MG/ML 30 ML/BOTTLE PO SCH ×2 (09:55→21:15)
[2022-02-26] MEDS: INSULIN REGULAR 100 UNIT/ML SUBCUT SCH ×4 (09:55→22:14)
[2022-02-26] MEDS: amLODIPine 10 MG TABLET PO SCH (09:56)
[2022-02-26] MEDS: buPROPion XL 150 MG TABLET PO SCH (09:56)
[2022-02-26] MEDS: APIXABAN 5 MG TABLET PO SCH ×2 (09:57→21:15)
[2022-02-26] MEDS: PANTOPRAZOLE 40 MG TABLET PO SCH (09:57)
[2022-02-26] MEDS: CHOLECALCIFEROL 5,000 UNIT TABLET PO SCH (09:57)
[2022-02-26] MEDS: ASPIRIN EC 81 MG TABLET PO SCH (09:57)
[2022-02-26] MEDS: LOSARTAN 50 MG TABLET PO SCH (09:57)
[2022-02-26] MEDS: GABAPENTIN 300 MG CAPSULE PO SCH ×3 (09:57→21:15)
[2022-02-26] MEDS: methylPREDNISolone SOD SUC 40 MG/1 ML VIAL IV SCH ×2 (09:58→21:15)
[2022-02-26] MEDS: DOCUSATE SODIUM 100 MG CAPSULE PO SCH ×2 (09:58→22:13)
[2022-02-26] MEDS: cefTRIAXone 1,000 MG in SODIUM CHLORIDE 0.9% 100 ML IV SCH (10:03)
[2022-02-26] MEDS: Vortioxetine [Trintellix] 20 mg tablet PO SCH (10:03)
[2022-02-26] MEDS: AZITHROMYCIN INJ 500 MG in SODIUM CHLORIDE 0.9% 250 ML IV SCH (12:32)
[2022-02-26] MEDS: ROSUVASTATIN 20 MG TABLET PO SCH (21:15)
[2022-02-27] MEDS: ALBUTEROL/IPRATROPIUM 3 ML NEB RESP TX SCH ×4 (01:36→19:45)
[2022-02-27 05:03] LABS: Basophils % 0.2 % (0.0-0.8); Hematocrit 33.3 VOL% (35.7-47.0); Hemoglobin 10.6 GM/DL (12.0-16.0); Immature Granulocytes % 2.1 %; Immature Granulocytes Absolute 0.22 #; Lymphocytes # 1.2 10*3/uL (1.4-4.0); Lymphocytes % 11.9 % (21.3-54.2); Mean Corpuscular HGB Conc 31.8 GM/DL (32-36); Mean Corpuscular Volume 84.1 FL (87-102); Mean Platelet Volume 9.4 FL (9.6-12.0); Monocytes # 0.6 10*3/uL (0.11-0.8); Monocytes % 5.3 % (1.7-12.7); NRBC # 0.02 10*3/uL; Neutrophils % 80.5 % (38.7-73.9); Platelet Count 471 T/CUMM (130-400); Red Blood Count 3.96 MC/CUMM (3.8-5.5); Red Cell Distribution Width 15.4 % (9.3-17.3); White Blood Count 10.4 T/CUMM (4-12)
[2022-02-27 05:31] LABS: Calcium 9.2 MG/DL (8.5-10.1); Osmolality,Calculated 272.2 MOS/KG (273-304); Potassium 3.9 MMOL/L (3.5-5.1)
[2022-02-27] MEDS: LEVOTHYROXINE 75 MCG TABLET PO SCH (06:00)
[2022-02-27] MEDS: BUDESONIDE 0.5 MG/2 ML NEB RESP TX SCH ×2 (08:23→19:45)
[2022-02-27] MEDS: INSULIN REGULAR 100 UNIT/ML SUBCUT SCH ×4 (08:34→21:33)
[2022-02-27] MEDS: FUROSEMIDE 20 MG/2 ML VIAL IV SCH ×2 (09:59→15:22)
[2022-02-27] MEDS: methylPREDNISolone SOD SUC 40 MG/1 ML VIAL IV SCH ×2 (09:59→21:32)
[2022-02-27] MEDS: LOSARTAN 50 MG TABLET PO SCH (10:00)
[2022-02-27] MEDS: PANTOPRAZOLE 40 MG TABLET PO SCH (10:00)
[2022-02-27] MEDS: GABAPENTIN 300 MG CAPSULE PO SCH ×3 (10:00→21:32)
[2022-02-27] MEDS: APIXABAN 5 MG TABLET PO SCH ×2 (10:00→21:32)
[2022-02-27] MEDS: cefTRIAXone 1,000 MG in SODIUM CHLORIDE 0.9% 100 ML IV SCH (10:00)
[2022-02-27] MEDS: amLODIPine 10 MG TABLET PO SCH (10:00)
[2022-02-27] MEDS: buPROPion XL 150 MG TABLET PO SCH (10:01)
[2022-02-27] MEDS: CHOLECALCIFEROL 5,000 UNIT TABLET PO SCH (10:01)
[2022-02-27] MEDS: ASPIRIN EC 81 MG TABLET PO SCH (10:01)
[2022-02-27] MEDS: DOCUSATE SODIUM 100 MG CAPSULE PO SCH ×2 (10:01→21:32)
[2022-02-27] MEDS: Vortioxetine [Trintellix] 20 mg tablet PO SCH (10:02)
[2022-02-27] MEDS: THEOPHYLLINE 5.33 MG/ML 30 ML/BOTTLE PO SCH ×2 (10:02→21:33)
[2022-02-27] MEDS: AZITHROMYCIN INJ 500 MG in SODIUM CHLORIDE 0.9% 250 ML IV SCH (11:31)
[2022-02-27] MEDS ORDERED: TUBERCULIN SKIN TEST 0.1 ML SYRINGE INTRADERM ONE (12:00)
[2022-02-27] MEDS: ROSUVASTATIN 20 MG TABLET PO SCH (21:32)
[2022-02-28] MEDS: ALBUTEROL/IPRATROPIUM 3 ML NEB RESP TX SCH ×4 (00:18→19:35)
[2022-02-28] MEDS: LEVOTHYROXINE 75 MCG TABLET PO SCH (05:04)
[2022-02-28 05:22] LABS: Basophils % 0.3 % (0.0-0.8); Hemoglobin 10.8 GM/DL (12.0-16.0); Immature Granulocytes % 3.2 %; Immature Granulocytes Absolute 0.42 #; Lymphocytes # 1.7 10*3/uL (1.4-4.0); Lymphocytes % 12.8 % (21.3-54.2); Mean Corpuscular HGB Conc 31.8 GM/DL (32-36); Mean Corpuscular Volume 83.3 FL (87-102); Mean Platelet Volume 9.2 FL (9.6-12.0); Monocytes # 0.8 10*3/uL (0.11-0.8); Monocytes % 5.8 % (1.7-12.7); NRBC # 0.02 10*3/uL; Neutrophils % 77.9 % (38.7-73.9); Platelet Count 506 T/CUMM (130-400); Red Blood Count 4.08 MC/CUMM (3.8-5.5); Red Cell Distribution Width 15.3 % (9.3-17.3)
[2022-02-28 05:48] LABS: Calcium 9.4 MG/DL (8.5-10.1); Osmolality,Calculated 269.7 MOS/KG (273-304); Potassium 3.9 MMOL/L (3.5-5.1)
[2022-02-28] MEDS: BUDESONIDE 0.5 MG/2 ML NEB RESP TX SCH ×2 (06:58→19:35)
[2022-02-28] MEDS: cefTRIAXone 1,000 MG in SODIUM CHLORIDE 0.9% 100 ML IV SCH (10:02)
[2022-02-28] MEDS: APIXABAN 5 MG TABLET PO SCH ×2 (10:06→21:34)
[2022-02-28] MEDS: PANTOPRAZOLE 40 MG TABLET PO SCH (10:08)
[2022-02-28] MEDS: ASPIRIN EC 81 MG TABLET PO SCH (10:08)
[2022-02-28] MEDS: amLODIPine 10 MG TABLET PO SCH (10:08)
[2022-02-28] MEDS: GABAPENTIN 300 MG CAPSULE PO SCH ×3 (10:08→21:34)
[2022-02-28] MEDS: CHOLECALCIFEROL 5,000 UNIT TABLET PO SCH (10:08)
[2022-02-28] MEDS: buPROPion XL 150 MG TABLET PO SCH (10:08)
[2022-02-28] MEDS: methylPREDNISolone SOD SUC 40 MG/1 ML VIAL IV SCH ×2 (10:09→21:37)
[2022-02-28] MEDS: FUROSEMIDE 20 MG/2 ML VIAL IV SCH ×2 (10:09→15:20)
[2022-02-28] MEDS: INSULIN REGULAR 100 UNIT/ML SUBCUT SCH ×4 (10:10→22:50)
[2022-02-28] MEDS: DOCUSATE SODIUM 100 MG CAPSULE PO SCH ×2 (10:22→21:35)
[2022-02-28] MEDS: LOSARTAN 50 MG TABLET PO SCH (10:59)
[2022-02-28] MEDS: Vortioxetine [Trintellix] 20 mg tablet PO SCH (10:59)
[2022-02-28] MEDS: AZITHROMYCIN INJ 500 MG in SODIUM CHLORIDE 0.9% 250 ML IV SCH (11:02)
[2022-02-28] MEDS: THEOPHYLLINE 5.33 MG/ML 30 ML/BOTTLE PO SCH ×2 (11:11→21:35)
[2022-02-28] MEDS: ROSUVASTATIN 20 MG TABLET PO SCH (21:34)
[2022-03-01 05:08] LABS: Basophils % 0.3 % (0.0-0.8); Hematocrit 33.9 VOL% (35.7-47.0); Hemoglobin 10.8 GM/DL (12.0-16.0); Immature Granulocytes Absolute 0.41 #; Lymphocytes # 1.8 10*3/uL (1.4-4.0); Lymphocytes % 13.6 % (21.3-54.2); Mean Corpuscular HGB Conc 31.9 GM/DL (32-36); Mean Corpuscular Volume 82.7 FL (87-102); Mean Platelet Volume 9.2 FL (9.6-12.0); Monocytes # 0.7 10*3/uL (0.11-0.8); Monocytes % 4.9 % (1.7-12.7); Neutrophils % 78.2 % (38.7-73.9); Platelet Count 507 T/CUMM (130-400); Red Cell Distribution Width 15.4 % (9.3-17.3); White Blood Count 13.5 T/CUMM (4-12)
[2022-03-01 05:27] LABS: Calcium 9.6 MG/DL (8.5-10.1); Osmolality,Calculated 273.2 MOS/KG (273-304); Potassium 4.6 MMOL/L (3.5-5.1)
[2022-03-01] MEDS: LEVOTHYROXINE 75 MCG TABLET PO SCH (06:01)
[2022-03-01] MEDS: BUDESONIDE 0.5 MG/2 ML NEB RESP TX SCH ×2 (07:00→20:10)
[2022-03-01] MEDS: ALBUTEROL/IPRATROPIUM 3 ML NEB RESP TX SCH ×4 (07:00→20:10)
[2022-03-01] MEDS: INSULIN REGULAR 100 UNIT/ML SUBCUT SCH ×4 (08:36→20:16)
[2022-03-01] MEDS: ASPIRIN EC 81 MG TABLET PO SCH (08:45)
[2022-03-01] MEDS: GABAPENTIN 300 MG CAPSULE PO SCH ×3 (08:45→20:15)
[2022-03-01] MEDS: APIXABAN 5 MG TABLET PO SCH ×2 (08:45→20:15)
[2022-03-01] MEDS: amLODIPine 10 MG TABLET PO SCH (08:45)
[2022-03-01] MEDS: FUROSEMIDE 20 MG/2 ML VIAL IV SCH ×2 (08:46→15:22)
[2022-03-01] MEDS: buPROPion XL 150 MG TABLET PO SCH (08:46)
[2022-03-01] MEDS: DOCUSATE SODIUM 100 MG CAPSULE PO SCH ×2 (08:46→20:15)
[2022-03-01] MEDS: PANTOPRAZOLE 40 MG TABLET PO SCH (08:46)
[2022-03-01] MEDS: LOSARTAN 50 MG TABLET PO SCH (08:46)
[2022-03-01] MEDS: CHOLECALCIFEROL 5,000 UNIT TABLET PO SCH (08:46)
[2022-03-01] MEDS: methylPREDNISolone SOD SUC 40 MG/1 ML VIAL IV SCH (08:53)
[2022-03-01] MEDS: cefTRIAXone 1,000 MG in SODIUM CHLORIDE 0.9% 100 ML IV SCH (08:55)
[2022-03-01] MEDS: THEOPHYLLINE 5.33 MG/ML 30 ML/BOTTLE PO SCH ×2 (08:58→20:17)
[2022-03-01] MEDS: Vortioxetine [Trintellix] 20 mg tablet PO SCH (11:18)
[2022-03-01] MEDS: ROSUVASTATIN 20 MG TABLET PO SCH (20:15)
[2022-03-02] MEDS: ALBUTEROL/IPRATROPIUM 3 ML NEB RESP TX SCH ×3 (02:25→13:50)
[2022-03-02 05:29] LABS: Basophils # 0.1 10*3/uL (0.0-0.2); Basophils % 0.4 % (0.0-0.8); Eosinophils # 0.1 10*3/uL (0.0-0.87); Eosinophils % 0.4 % (0.00-10.9); Hematocrit 33.6 VOL% (35.7-47.0); Hemoglobin 10.6 GM/DL (12.0-16.0); Immature Granulocytes % 4.6 %; Immature Granulocytes Absolute 0.79 #; Lymphocytes # 4.7 10*3/uL (1.4-4.0); Lymphocytes % 27.2 % (21.3-54.2); Mean Corpuscular HGB Conc 31.5 GM/DL (32-36); Mean Corpuscular Volume 83.8 FL (87-102); Mean Platelet Volume 8.9 FL (9.6-12.0); Monocytes # 1.7 10*3/uL (0.11-0.8); Monocytes % 10.1 % (1.7-12.7); Neutrophils % 57.3 % (38.7-73.9); Platelet Count 494 T/CUMM (130-400); Red Blood Count 4.01 MC/CUMM (3.8-5.5); Red Cell Distribution Width 15.4 % (9.3-17.3); White Blood Count 17.1 T/CUMM (4-12)
[2022-03-02 05:45] LABS: Calcium 8.9 MG/DL (8.5-10.1); Osmolality,Calculated 275.8 MOS/KG (273-304); Potassium 3.4 MMOL/L (3.5-5.1)
[2022-03-02] MEDS: LEVOTHYROXINE 75 MCG TABLET PO SCH (06:01)
[2022-03-02 06:44] LABS: Lymphocytes 23 % (20-55); Metamyelocytes 1 %; Myelocytes 1 %; Total Cells Counted 100
[2022-03-02 06:51] LABS: Platelet Estimate Normal
[2022-03-02 06:57] LABS: Hypochromia 2+; Polychromasia Slight; Tear Drop Cells Few
[2022-03-02] MEDS: BUDESONIDE 0.5 MG/2 ML NEB RESP TX SCH (07:28)
[2022-03-02] MEDS: INSULIN REGULAR 100 UNIT/ML SUBCUT SCH ×2 (08:44→11:49)
[2022-03-02] MEDS: FUROSEMIDE 20 MG/2 ML VIAL IV SCH (08:50)
[2022-03-02] MEDS: methylPREDNISolone SOD SUC 40 MG/1 ML VIAL IV SCH (08:51)
[2022-03-02] MEDS: LOSARTAN 50 MG TABLET PO SCH (08:51)
[2022-03-02] MEDS: ASPIRIN EC 81 MG TABLET PO SCH (08:51)
[2022-03-02] MEDS: DOCUSATE SODIUM 100 MG CAPSULE PO SCH (08:51)
[2022-03-02] MEDS: PANTOPRAZOLE 40 MG TABLET PO SCH (08:51)
[2022-03-02] MEDS: POTASSIUM CHLORIDE 20 MEQ TABLET PO PRN ×3 (08:51→12:03)
[2022-03-02] MEDS: APIXABAN 5 MG TABLET PO SCH (08:52)
[2022-03-02] MEDS: CHOLECALCIFEROL 5,000 UNIT TABLET PO SCH (08:52)
[2022-03-02] MEDS: amLODIPine 10 MG TABLET PO SCH (08:52)
[2022-03-02] MEDS: buPROPion XL 150 MG TABLET PO SCH (08:52)
[2022-03-02] MEDS: GABAPENTIN 300 MG CAPSULE PO SCH (08:52)
[2022-03-02] MEDS: Vortioxetine [Trintellix] 20 mg tablet PO SCH (08:52)
[2022-03-02] MEDS: THEOPHYLLINE 5.33 MG/ML 30 ML/BOTTLE PO SCH (08:53)
[2022-03-02 12:33] VITALS: BP 146/68
== END 2022-03-02 15:16 | disposition swing bed (61) | DRG 193 ==
LOC: EDBD → EDUNIT# → N.ED 20:14 → N.3E 22:44 → SUATTDRO 22:44 → N.3E 02-22 00:56
PROVIDERS: ADMIT Internal Medicine; ATTEND Internal Medicine Geriatric Medicine

== ENCOUNTER 2022-05-20 16:30 | Inpatient (IN) ==
[2022-05-20 17:22] LABS: Basophils # 0.1 10*3/uL (0.0-0.2); Basophils % 0.5 % (0.0-0.8); Eosinophils # 0.2 10*3/uL (0.0-0.87); Eosinophils % 1.2 % (0.00-10.9); Hematocrit 39.6 VOL% (35.7-47.0); Hemoglobin 12.3 GM/DL (12.0-16.0); Immature Granulocytes % 0.6 %; Lymphocytes # 2.1 10*3/uL (1.4-4.0); Lymphocytes % 12.2 % (21.3-54.2); Mean Corpuscular HGB Conc 31.1 GM/DL (32-36); Mean Platelet Volume 9.7 FL (9.6-12.0); Monocytes # 1.4 10*3/uL (0.11-0.8); Monocytes % 8.2 % (1.7-12.7); Neutrophils % 77.3 % (38.7-73.9); Platelet Count 533 T/CUMM (130-400); Red Blood Count 4.77 MC/CUMM (3.8-5.5); Red Cell Distribution Width 17.6 % (9.3-17.3); White Blood Count 16.9 T/CUMM (4-12)
[2022-05-20 17:31] LABS: INR 0.9; PT Patient Result 10.3 SECS (10.1-12.1); Partial Thromboplastin Time 27.5 SECS (23.7-32.9)
[2022-05-20 17:35] LABS: Alanine Aminotransferase 31 U/L (13-56); Albumin 2.9 G/DL (3.4-5.0); Alkaline Phosphatase 82 U/L (45-117); Aspartate Amino Transferase 20 U/L (0-37); Bilirubin,Total < 0.39 MG/DL (0.20-1.00); Blood Urea Nitrogen 9 MG/DL (7-18); Calcium 9.8 MG/DL (8.5-10.1); Carbon Dioxide 27 MMOL/L (21-32); Chloride 103 MMOL/L (98-107); Glucose 108 MG/DL (74-106); Osmolality,Calculated 272.8 MOS/KG (273-304); Potassium 4.2 MMOL/L (3.5-5.1); Sodium 137 MMOL/L (136-145); Total Protein 7.1 G/DL (6.4-8.2)
[2022-05-20] MEDS ORDERED: PIPERACILLIN/TAZOBACTAM 3,375 MG in SODIUM CHLORIDE 0.9% 100 ML IV STA (18:21)
[2022-05-20] MEDS ORDERED: ONDANSETRON 4 MG/2 ML VIAL IV STA (18:21)
[2022-05-20] MEDS ORDERED: methylPREDNISolone SOD SUC 125 MG/2 ML VIAL IV STA (18:21)
[2022-05-20] MEDS ORDERED: FUROSEMIDE 100 MG/10 ML VIAL IV STA (18:21)
[2022-05-20] MEDS ORDERED: ALBUTEROL/IPRATROPIUM 3 ML NEB RESP TX STA (18:21)
[2022-05-20] MEDS ORDERED: MORPHINE 2 MG/1 ML SYRINGE IV STA (18:21)
[2022-05-20] MEDS ORDERED: ALBUTEROL NEB SOLN 5 MG/ML 20 ML/BOTTLE CONT NEB SCH (18:30)
[2022-05-20 18:46] LABS: Arterial Base Excess iSTAT 3 MMOL/L (-2.5-2.5); Arterial Bicarbonate iSTAT 29.6 MMOL/L (20-26); Arterial O2 Saturation iSTAT 96 % (95-100); Arterial PCO2 iSTAT 50 MM HG (35-48); Arterial PO2 iSTAT 83 MM HG (80-95); Arterial Total CO2 iSTAT 31 MMO/L (23-27); Arterial pH iSTAT 7.378 (7.35-7.45)
[2022-05-20] MEDS ORDERED: MAGNESIUM SULF RIDER 2 GM/50 ML PREMIX IV PRN (19:44)
[2022-05-20] MEDS ORDERED: MAGNESIUM SULF RIDER 4 GM/100 ML PREMIX IV PRN (19:44)
[2022-05-20] MEDS ORDERED: ONDANSETRON 4 MG/2 ML VIAL IV PRN (19:44)
[2022-05-20] MEDS ORDERED: GLUCAGON 1 MG VIAL IM PRN (19:44)
[2022-05-20] MEDS ORDERED: DEXTROSE 10% 250 ML BAG IV PRN (19:44)
[2022-05-20 20:24] LABS: Bacteria,Urine Occasional /HPF (Few); Bilirubin,Urine Negative (Negative); Blood, Urine Negative (Negative); Calcium Oxalate Crystals,Urine Occasional /HPF (Few); Glucose,Urine (UA) Negative (Negative); Hyaline Casts,Urine 15 /LPF (0-3); Ketones,Urine Negative (Negative); Mucus,Urine Moderate /LPF (Occasional); Nitrite,Urine Negative (Negative); Protein,Urine Negative (Negative); RBC,Urine <1 /HPF (0-4); Urine Appearance Clear (Clear); Urine Color Yellow (Yellow); Urine Specific Gravity 1.025 (1.001-1.035); Urine Urobilinogen 0.2 eU/dL (<2.0); Urine pH 5.5 (4.5-8.0)
[2022-05-20] MEDS: methylPREDNISolone SOD SUC 40 MG/1 ML VIAL IV SCH (21:55)
[2022-05-20] MEDS: cefTRIAXone 2,000 MG in SODIUM CHLORIDE 0.9% 100 ML IV SCH (21:57)
[2022-05-20] MEDS: ENOXAPARIN 40 MG/0.4 ML SYRINGE SUBCUT SCH (21:57)
[2022-05-20] MEDS: AZITHROMYCIN INJ 500 MG in SODIUM CHLORIDE 0.9% 250 ML IV SCH (22:44)
[2022-05-20] MEDS ORDERED: INFLUENZA VIRUS VACCINE 0.5 ML SYRINGE IM ONE (23:30)
[2022-05-21] MEDS: ALBUTEROL 2.5 MG/3 ML NEB RESP TX SCH ×2 (00:06→07:21)
[2022-05-21] MEDS: methylPREDNISolone SOD SUC 40 MG/1 ML VIAL IV SCH ×3 (03:31→20:48)
[2022-05-21 04:13] LABS: Arterial Base Excess iSTAT 5 MMOL/L (-2.5-2.5); Arterial Bicarbonate iSTAT 30.6 MMOL/L (20-26); Arterial O2 Saturation iSTAT 96 % (95-100); Arterial PCO2 iSTAT 51 MM HG (35-48); Arterial PO2 iSTAT 85 MM HG (80-95); Arterial Total CO2 iSTAT 32 MMO/L (23-27)
[2022-05-21 06:30] LABS: Basophils % 0.1 % (0.0-0.8); Hematocrit 38.4 VOL% (35.7-47.0); Hemoglobin 11.7 GM/DL (12.0-16.0); Immature Granulocytes % 0.8 %; Immature Granulocytes Absolute 0.14 #; Lymphocytes # 0.9 10*3/uL (1.4-4.0); Mean Corpuscular HGB Conc 30.5 GM/DL (32-36); Mean Corpuscular Volume 84.6 FL (87-102); Mean Platelet Volume 9.6 FL (9.6-12.0); Monocytes # 0.1 10*3/uL (0.11-0.8); Monocytes % 0.6 % (1.7-12.7); Neutrophils % 93.5 % (38.7-73.9); Platelet Count 500 T/CUMM (130-400); Red Blood Count 4.54 MC/CUMM (3.8-5.5); Red Cell Distribution Width 17.7 % (9.3-17.3); White Blood Count 18.1 T/CUMM (4-12)
[2022-05-21 06:51] LABS: Albumin 2.7 G/DL (3.4-5.0); Bilirubin,Total 0.4 MG/DL (0.20-1.00); Calcium 9.9 MG/DL (8.5-10.1); Osmolality,Calculated 275.8 MOS/KG (273-304); Potassium 4.3 MMOL/L (3.5-5.1); Total Protein 6.9 G/DL (6.4-8.2)
[2022-05-21 06:54] LABS: Lymphocytes 4 % (20-55); Total Cells Counted 100
[2022-05-21 06:55] LABS: Platelet Estimate Increased
[2022-05-21] MEDS: FUROSEMIDE 40 MG/4 ML VIAL IV SCH ×2 (09:10→15:06)
[2022-05-21] MEDS: PANTOPRAZOLE 40 MG TABLET PO SCH (09:10)
[2022-05-21] MEDS: busPIRone 15 MG TABLET PO SCH ×2 (15:04→20:47)
[2022-05-21] MEDS: GABAPENTIN 300 MG CAPSULE PO SCH ×2 (15:05→20:48)
[2022-05-21] MEDS: ALBUTEROL/IPRATROPIUM 3 ML NEB RESP TX SCH ×2 (15:16→20:06)
[2022-05-21] MEDS: ENOXAPARIN 40 MG/0.4 ML SYRINGE SUBCUT SCH (20:48)
[2022-05-21] MEDS: cefTRIAXone 2,000 MG in SODIUM CHLORIDE 0.9% 100 ML IV SCH (20:48)
[2022-05-21] MEDS: AZITHROMYCIN INJ 500 MG in SODIUM CHLORIDE 0.9% 250 ML IV SCH (22:46)
[2022-05-22] MEDS: ALBUTEROL/IPRATROPIUM 3 ML NEB RESP TX SCH ×4 (00:55→19:10)
[2022-05-22] MEDS: methylPREDNISolone SOD SUC 40 MG/1 ML VIAL IV SCH ×3 (05:39→21:40)
[2022-05-22] MEDS: LEVOTHYROXINE 75 MCG TABLET PO SCH (05:39)
[2022-05-22 06:32] LABS: Basophils % 0.1 % (0.0-0.8); Hematocrit 34.9 VOL% (35.7-47.0); Hemoglobin 10.9 GM/DL (12.0-16.0); Immature Granulocytes % 0.7 %; Immature Granulocytes Absolute 0.12 #; Lymphocytes # 1.4 10*3/uL (1.4-4.0); Lymphocytes % 8.3 % (21.3-54.2); Mean Corpuscular HGB Conc 31.2 GM/DL (32-36); Mean Corpuscular Volume 83.7 FL (87-102); Mean Platelet Volume 9.6 FL (9.6-12.0); Monocytes # 0.4 10*3/uL (0.11-0.8); Monocytes % 2.6 % (1.7-12.7); NRBC # 0.02 10*3/uL; Neutrophils % 88.3 % (38.7-73.9); Platelet Count 519 T/CUMM (130-400); Red Blood Count 4.17 MC/CUMM (3.8-5.5); Red Cell Distribution Width 17.4 % (9.3-17.3); White Blood Count 16.8 T/CUMM (4-12)
[2022-05-22 06:43] LABS: Calcium 9.6 MG/DL (8.5-10.1); Osmolality,Calculated 281.5 MOS/KG (273-304); Potassium 4.3 MMOL/L (3.5-5.1)
[2022-05-22] MEDS: PANTOPRAZOLE 40 MG TABLET PO SCH (08:27)
[2022-05-22] MEDS: busPIRone 15 MG TABLET PO SCH ×3 (08:27→21:39)
[2022-05-22] MEDS: ATORVASTATIN 40 MG TABLET PO SCH (08:27)
[2022-05-22] MEDS: GABAPENTIN 300 MG CAPSULE PO SCH ×3 (08:27→21:39)
[2022-05-22] MEDS: FUROSEMIDE 40 MG/4 ML VIAL IV SCH (08:28)
[2022-05-22] MEDS: FLUTICASONE 50 MCG NASAL SPRAY 16 GM BOTTLE BOTH NARES SCH (08:29)
[2022-05-22] MEDS: ASPIRIN EC 81 MG TABLET PO SCH (08:39)
[2022-05-22] MEDS: amLODIPine 10 MG TABLET PO SCH (08:40)
[2022-05-22] MEDS ORDERED: [UNRECOGNIZED DRUG - OTHER] PO SCH (09:00)
[2022-05-22] MEDS: AZITHROMYCIN 250 MG TABLET PO SCH (14:56)
[2022-05-22] MEDS: FUROSEMIDE 40 MG TABLET PO SCH (15:32)
[2022-05-22] MEDS: cefTRIAXone 2,000 MG in SODIUM CHLORIDE 0.9% 100 ML IV SCH (21:39)
[2022-05-22] MEDS: ENOXAPARIN 40 MG/0.4 ML SYRINGE SUBCUT SCH (21:40)
[2022-05-23] MEDS: ALBUTEROL/IPRATROPIUM 3 ML NEB RESP TX SCH ×3 (00:35→13:23)
[2022-05-23] MEDS: LEVOTHYROXINE 75 MCG TABLET PO SCH (05:50)
[2022-05-23] MEDS: methylPREDNISolone SOD SUC 40 MG/1 ML VIAL IV SCH ×2 (05:51→13:22)
[2022-05-23 06:47] LABS: Basophils % 0.1 % (0.0-0.8); Hematocrit 34.4 VOL% (35.7-47.0); Hemoglobin 10.8 GM/DL (12.0-16.0); Immature Granulocytes Absolute 0.13 #; Lymphocytes # 1.4 10*3/uL (1.4-4.0); Lymphocytes % 10.3 % (21.3-54.2); Mean Corpuscular HGB Conc 31.4 GM/DL (32-36); Mean Corpuscular Volume 83.3 FL (87-102); Mean Platelet Volume 9.6 FL (9.6-12.0); Monocytes # 0.5 10*3/uL (0.11-0.8); Monocytes % 3.4 % (1.7-12.7); NRBC # 0.02 10*3/uL; Neutrophils % 85.2 % (38.7-73.9); Platelet Count 499 T/CUMM (130-400); Red Blood Count 4.13 MC/CUMM (3.8-5.5); Red Cell Distribution Width 17.2 % (9.3-17.3); White Blood Count 13.5 T/CUMM (4-12)
[2022-05-23 07:01] LABS: Calcium 9.2 MG/DL (8.5-10.1); Osmolality,Calculated 283.5 MOS/KG (273-304); Potassium 3.7 MMOL/L (3.5-5.1)
[2022-05-23] MEDS: busPIRone 15 MG TABLET PO SCH (10:04)
[2022-05-23] MEDS: AZITHROMYCIN 250 MG TABLET PO SCH (10:06)
[2022-05-23] MEDS: GABAPENTIN 300 MG CAPSULE PO SCH (10:06)
[2022-05-23] MEDS: FUROSEMIDE 40 MG TABLET PO SCH (10:07)
[2022-05-23] MEDS: ATORVASTATIN 40 MG TABLET PO SCH (10:07)
[2022-05-23] MEDS: ASPIRIN EC 81 MG TABLET PO SCH (10:07)
[2022-05-23] MEDS: amLODIPine 10 MG TABLET PO SCH (10:07)
[2022-05-23] MEDS: PANTOPRAZOLE 40 MG TABLET PO SCH (10:08)
[2022-05-23] MEDS: FLUTICASONE 50 MCG NASAL SPRAY 16 GM BOTTLE BOTH NARES SCH (10:11)
[2022-05-23 12:13] VITALS: BP 175/78
== END 2022-05-23 13:19 | disposition home or self-care (01) | DRG 190 ==
LOC: EDBD → EDUNIT# → N.ED 16:30 → N.5E 19:44
PROVIDERS: ADMIT Internal Medicine; ATTEND Internal Medicine

== ENCOUNTER 2022-08-25 07:26 | Inpatient (IN) ==
[2022-08-25 08:31] LABS: Albumin 3.2 G/DL (3.4-5.0); Bilirubin,Total 0.5 MG/DL (0.20-1.00); Calcium 9.3 MG/DL (8.5-10.1); Osmolality,Calculated 267.4 MOS/KG (273-304); Potassium 3.5 MMOL/L (3.5-5.1); Total Protein 6.6 G/DL (6.4-8.2)
[2022-08-25 08:50] LABS: Bilirubin,Urine Negative (Negative); Blood, Urine Trace mg/dL (Negative); Glucose,Urine (UA) Negative (Negative); Ketones,Urine Negative (Negative); Nitrite,Urine Negative (Negative); Protein,Urine Negative (Negative); Urine Appearance Clear (Clear); Urine Color Yellow (Yellow); Urine Specific Gravity >= 1.030 (1.001-1.035); Urine Urobilinogen 0.2 eU/dL (<2.0)
[2022-08-25 08:54] LABS: Hyaline Casts,Urine 18 /LPF (0-3); RBC,Urine 1 /HPF (0-4)
[2022-08-25 08:54] LABS: Arterial Base Excess iSTAT 8 MMOL/L (-2.5-2.5); Arterial Bicarbonate iSTAT 36.9 MMOL/L (20-26); Arterial O2 Saturation iSTAT 89 % (95-100); Arterial PCO2 iSTAT 77 MM HG (35-48); Arterial PO2 iSTAT 67 MM HG (80-95); Arterial Total CO2 iSTAT 39 MMO/L (23-27); Arterial pH iSTAT 7.292 (7.35-7.45)
[2022-08-25 09:12] LABS: Basophils # 0.1 10*3/uL (0.0-0.2); Basophils % 0.3 % (0.0-0.8); Hematocrit 36.3 VOL% (35.7-47.0); Hemoglobin 10.9 GM/DL (12.0-16.0); Immature Granulocytes % 0.8 %; Immature Granulocytes Absolute 0.12 #; Lymphocytes # 1.6 10*3/uL (1.4-4.0); Lymphocytes % 10.7 % (21.3-54.2); Mean Corpuscular Volume 89.4 FL (87-102); Mean Platelet Volume 9.4 FL (9.6-12.0); Monocytes # 1.2 10*3/uL (0.11-0.8); Monocytes % 7.9 % (1.7-12.7); Neutrophils % 80.3 % (38.7-73.9); Platelet Count 437 T/CUMM (130-400); Red Blood Count 4.06 MC/CUMM (3.8-5.5); Red Cell Distribution Width 14.6 % (9.3-17.3)
[2022-08-25 09:19] LABS: PT Patient Result 11.4 SECS (10.1-12.1); Partial Thromboplastin Time 25.9 SECS (23.7-32.9)
[2022-08-25] MEDS ORDERED: cefTRIAXone 1,000 MG in SODIUM CHLORIDE 0.9% 100 ML IV STA (10:21)
[2022-08-25 10:42] LABS: Arterial Base Excess iSTAT 8 MMOL/L (-2.5-2.5); Arterial Bicarbonate iSTAT 38.6 MMOL/L (20-26); Arterial O2 Saturation iSTAT 100 % (95-100); Arterial PCO2 iSTAT 86 MM HG (35-48); Arterial PO2 iSTAT 234 MM HG (80-95); Arterial Total CO2 iSTAT 41 MMO/L (23-27); Arterial pH iSTAT 7.262 (7.35-7.45)
[2022-08-25] MEDS ORDERED: guaiFENesin/DM ER 600-30 MG TABLET PO PRN (11:20)
[2022-08-25] MEDS ORDERED: NICOTINE 21 MG/24 HR PATCH TRANSDERM PRN (11:20)
[2022-08-25] MEDS ORDERED: diphenhydrAMINE CAP 25 MG CAPSULE PO PRN (11:20)
[2022-08-25] MEDS ORDERED: ZALEPLON 5 MG CAPSULE PO PRN (11:20)
[2022-08-25] MEDS ORDERED: hydrALAZINE 20 MG/1 ML VIAL IV PRN (11:20)
[2022-08-25] MEDS ORDERED: ONDANSETRON 4 MG/2 ML VIAL IV PRN (11:20)
[2022-08-25] MEDS ORDERED: LEVOFLOXACIN INJ 750 MG/150 ML PREMIX IV ONE (12:00)
[2022-08-25] MEDS: HEPARIN 5,000 UNIT/1 ML VIAL SUBCUT SCH (12:49)
[2022-08-25] MEDS: methylPREDNISolone SOD SUC 40 MG/1 ML VIAL IV SCH ×2 (12:49→20:59)
[2022-08-25 13:57] LABS: Arterial Base Excess iSTAT 7 MMOL/L (-2.5-2.5); Arterial Bicarbonate iSTAT 34.9 MMOL/L (20-26); Arterial O2 Saturation iSTAT 97 % (95-100); Arterial PCO2 iSTAT 69 MM HG (35-48); Arterial PO2 iSTAT 107 MM HG (80-95); Arterial Total CO2 iSTAT 37 MMO/L (23-27); Arterial pH iSTAT 7.312 (7.35-7.45)
[2022-08-25] MEDS: ALBUTEROL/IPRATROPIUM 3 ML NEB RESP TX SCH ×3 (14:00→22:58)
[2022-08-25] MEDS: NYSTATIN CREAM 15 GM TUBE TOP SCH (21:00)
[2022-08-25] MEDS: MORPHINE 2 MG/1 ML SYRINGE IV PRN (21:06)
[2022-08-25] MEDS: ACETAMINOPHEN 325 MG TABLET PO PRN (23:12)
[2022-08-26] MEDS: MORPHINE 2 MG/1 ML SYRINGE IV PRN ×4 (00:21→21:40)
[2022-08-26] MEDS: HEPARIN 5,000 UNIT/1 ML VIAL SUBCUT SCH ×2 (00:23→11:54)
[2022-08-26] MEDS: ALBUTEROL/IPRATROPIUM 3 ML NEB RESP TX SCH ×6 (02:33→22:50)
[2022-08-26] MEDS: methylPREDNISolone SOD SUC 40 MG/1 ML VIAL IV SCH ×3 (04:29→21:39)
[2022-08-26] MEDS: ACETAMINOPHEN 325 MG TABLET PO PRN (05:22)
[2022-08-26 05:49] LABS: Basophils % 0.2 % (0.0-0.8); Hematocrit 35.6 VOL% (35.7-47.0); Hemoglobin 11.2 GM/DL (12.0-16.0); Immature Granulocytes % 0.9 %; Immature Granulocytes Absolute 0.11 #; Lymphocytes # 1.2 10*3/uL (1.4-4.0); Lymphocytes % 9.1 % (21.3-54.2); Mean Corpuscular HGB Conc 31.5 GM/DL (32-36); Mean Corpuscular Volume 85.4 FL (87-102); Mean Platelet Volume 9.4 FL (9.6-12.0); Monocytes # 0.2 10*3/uL (0.11-0.8); Monocytes % 1.4 % (1.7-12.7); NRBC # 0.02 10*3/uL; Neutrophils % 88.4 % (38.7-73.9); Platelet Count 428 T/CUMM (130-400); Red Blood Count 4.17 MC/CUMM (3.8-5.5); Red Cell Distribution Width 14.4 % (9.3-17.3); White Blood Count 12.6 T/CUMM (4-12)
[2022-08-26 06:09] LABS: Calcium 9.8 MG/DL (8.5-10.1); Osmolality,Calculated 261.9 MOS/KG (273-304); Potassium 3.6 MMOL/L (3.5-5.1)
[2022-08-26 08:09] LABS: Arterial Base Excess iSTAT 11 MMOL/L (-2.5-2.5); Arterial Bicarbonate iSTAT 37.3 MMOL/L (20-26); Arterial O2 Saturation iSTAT 88 % (95-100); Arterial PCO2 iSTAT 55 MM HG (35-48); Arterial PO2 iSTAT 54 MM HG (80-95); Arterial Total CO2 iSTAT 39 MMO/L (23-27); Arterial pH iSTAT 7.438 (7.35-7.45)
[2022-08-26] MEDS ORDERED: SODIUM CHLORIDE 0.9% 1,000 ML IV SCH (09:30)
[2022-08-26] MEDS: ASPIRIN EC 81 MG TABLET PO SCH (09:42)
[2022-08-26] MEDS: NYSTATIN CREAM 15 GM TUBE TOP SCH ×2 (09:43→21:40)
[2022-08-26] MEDS: amLODIPine 10 MG TABLET PO SCH (09:43)
[2022-08-26 11:29] LABS: Arterial Base Excess iSTAT 9 MMOL/L (-2.5-2.5); Arterial O2 Saturation iSTAT 94 % (95-100); Arterial PCO2 iSTAT 51 MM HG (35-48); Arterial PO2 iSTAT 69 MM HG (80-95); Arterial Total CO2 iSTAT 36 MMO/L (23-27); Arterial pH iSTAT 7.446 (7.35-7.45)
[2022-08-26] MEDS: busPIRone 5 MG TABLET PO SCH ×2 (14:05→21:40)
[2022-08-26] MEDS: NON-FORMULARY MEDICATION (Budesonide-Glycopyr-Formoterol [Breztri Aerosphere] 160-9-4.8 mc INH SCH (21:00)
[2022-08-27] MEDS: HEPARIN 5,000 UNIT/1 ML VIAL SUBCUT SCH ×3 (00:27→23:37)
[2022-08-27] MEDS: ALBUTEROL/IPRATROPIUM 3 ML NEB RESP TX SCH ×6 (02:50→23:27)
[2022-08-27] MEDS: methylPREDNISolone SOD SUC 40 MG/1 ML VIAL IV SCH ×3 (04:00→21:00)
[2022-08-27] MEDS: LEVOTHYROXINE 75 MCG TABLET PO SCH (05:50)
[2022-08-27 06:22] LABS: Basophils % 0.1 % (0.0-0.8); Hematocrit 34.3 VOL% (35.7-47.0); Hemoglobin 10.8 GM/DL (12.0-16.0); Lymphocytes # 1.2 10*3/uL (1.4-4.0); Lymphocytes % 11.7 % (21.3-54.2); Mean Corpuscular HGB Conc 31.5 GM/DL (32-36); Mean Corpuscular Volume 83.5 FL (87-102); Mean Platelet Volume 9.6 FL (9.6-12.0); Monocytes # 0.6 10*3/uL (0.11-0.8); Monocytes % 6.3 % (1.7-12.7); Neutrophils % 80.9 % (38.7-73.9); Platelet Count 491 T/CUMM (130-400); Red Blood Count 4.11 MC/CUMM (3.8-5.5); Red Cell Distribution Width 14.7 % (9.3-17.3); White Blood Count 10.1 T/CUMM (4-12)
[2022-08-27 06:45] LABS: Alanine Aminotransferase 55 U/L (13-56); Albumin 2.9 G/DL (3.4-5.0); Alkaline Phosphatase 61 U/L (45-117); Aspartate Amino Transferase 69 U/L (0-37); Bilirubin,Total < 0.39 MG/DL (0.20-1.00); Blood Urea Nitrogen 25 MG/DL (7-18); Calcium 9.7 MG/DL (8.5-10.1); Carbon Dioxide 33 MMOL/L (21-32); Chloride 92 MMOL/L (98-107); Glucose 114 MG/DL (74-106); Osmolality,Calculated 272.2 MOS/KG (273-304); Potassium 3.5 MMOL/L (3.5-5.1); Sodium 134 MMOL/L (136-145); Total Protein 6.8 G/DL (6.4-8.2)
[2022-08-27] MEDS: amLODIPine 10 MG TABLET PO SCH (08:27)
[2022-08-27] MEDS: ASPIRIN EC 81 MG TABLET PO SCH (08:27)
[2022-08-27] MEDS: MULTIVITAMIN (CENTRUM) TABLET PO SCH (08:27)
[2022-08-27] MEDS: CHOLECALCIFEROL 1,000 UNIT TABLET PO SCH (08:27)
[2022-08-27] MEDS: busPIRone 5 MG TABLET PO SCH ×3 (08:27→21:00)
[2022-08-27] MEDS: NON-FORMULARY MEDICATION (Budesonide-Glycopyr-Formoterol [Breztri Aerosphere] 160-9-4.8 mc INH SCH ×2 (08:35→23:37)
[2022-08-27] MEDS ORDERED: LEVOFLOXACIN INJ 500 MG/100 ML PREMIX IV SCH (09:00)
[2022-08-27] MEDS: NYSTATIN CREAM 15 GM TUBE TOP SCH ×2 (12:16→23:37)
[2022-08-27] MEDS: ACETAMINOPHEN 325 MG TABLET PO PRN (21:07)
[2022-08-28] MEDS: ALBUTEROL/IPRATROPIUM 3 ML NEB RESP TX SCH ×3 (03:27→11:01)
[2022-08-28] MEDS: methylPREDNISolone SOD SUC 40 MG/1 ML VIAL IV SCH ×2 (04:43→12:30)
[2022-08-28] MEDS: LEVOTHYROXINE 75 MCG TABLET PO SCH (07:01)
[2022-08-28] MEDS: CHOLECALCIFEROL 1,000 UNIT TABLET PO SCH (09:30)
[2022-08-28] MEDS: busPIRone 5 MG TABLET PO SCH (09:30)
[2022-08-28] MEDS: MULTIVITAMIN (CENTRUM) TABLET PO SCH (09:31)
[2022-08-28] MEDS: NON-FORMULARY MEDICATION (Budesonide-Glycopyr-Formoterol [Breztri Aerosphere] 160-9-4.8 mc INH SCH (09:31)
[2022-08-28] MEDS: ASPIRIN EC 81 MG TABLET PO SCH (09:31)
[2022-08-28] MEDS: amLODIPine 10 MG TABLET PO SCH (09:31)
[2022-08-28 12:25] VITALS: BP 147/63
[2022-08-28] MEDS: HEPARIN 5,000 UNIT/1 ML VIAL SUBCUT SCH (12:30)
[2022-08-28] MEDS: NYSTATIN CREAM 15 GM TUBE TOP SCH (12:31)
[2022-08-28] MEDS ORDERED: LEVOFLOXACIN 750 MG TABLET PO SCH (13:00)
== END 2022-08-28 15:34 | disposition home health service (06) | DRG 189 ==
LOC: N.ED 07:26 → SUATTDRO 11:20 → N.EDINP 11:20 → N.CC 12:32 → N.2E 08-26 16:12
PROVIDERS: ADMIT Internal Medicine; ATTEND Family Medicine